=== PATIENT | female | born 1965 | race Caucasian/White ===

== ENCOUNTER 2016-12-08 09:44 | Emergency (ER) | payer OTHER ==
[~2016-12-08] VITALS: Ht 162.6 cm; Wt 85.0 kg
[~2016-12-08 09:44] MED LIST: LISI-515 PO; METR-1 PO; OXYC1TAB63 PO
[2016-12-08 09:46] VITALS: BP 141/91; PULSE 88; RESP 16; TEMP 97.8; O2SAT 96
[2016-12-08] MEDS ORDERED: ZOFR4TAB PO (10:04)
[2016-12-08] MEDS ORDERED: PANT20TA2 PO (10:04)
[2016-12-08] MEDS ORDERED: DEXA4TAB PO (10:04)
--- NOTE | 2016-12-08 10:38 | PD ---
HPI Chief Complaint: Pain: Acute or Chronic Time Seen by Provider: 10:02 Travel History International Travel<30 days: No Contact w/Intl Traveler<30days: No Traveled to known affect area: No History of Present Illness HPI This patient complains of pain in her left leg. Duration 2 days. Location of pain in his near the knee and proximal thigh. There is no injury. She denies fever. 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 She spoke with her oncologist who recommended she come here to rule out blood clot. She did have swelling of the leg yesterday but says the swelling seems improved. No history of blood clot. Symptoms severity is mild to moderate. No alleviating factors. PFSH Past Medical History Cancer: Yes (uterine) Cardiovascular Problems: Yes (SMALL HOLE IN HEART PER PATIENT) Chemotherapy: Yes Diabetes: No Endocrine: No Genitourinary: No Hepatitis: No Hiatal Hernia: No Immune Disorder: No Medical other: Yes (UMBILICAL HERNIA) Musculoskeletal: No Neurologic: No Psychiatric: No Reproductive: Yes (TUMOR UTERUS) Respiratory: No Thyroid Disease: No Tetanus Vaccination: < 5 Years ?: Not Past Surgical History Abdominal Surgery: Yes (APPY, ) AICD: No Body Medical Devices: NONE Gynecologic Surgery: Yes (CYST REMOVED FROM OVARY, TUBAL, ABLATION) Joint Replacement: No Pacemaker: No Other Surgery: Yes (hysterectomy 09/09/16) Social History Alcohol Use: Yes Tobacco Use: No Substance Use: No Allergies-Medications (Allergen,Severity, Reaction): Coded Allergies: Soma (Verified Allergy, Severe, HYPOTENSION, 10/10/16) Reported Meds & Prescriptions Reported Meds & Active Scripts Active Oxycodone-Acetaminophen 5-325 mg Tab 1 Tab PO Q4H PRN Reported Pantoprazole (Pantoprazole Sodium) 20 Mg Tab 20 Mg PO DAILY Dexamethasone 4 Mg Tab 4 Mg PO DIRECTED Zofran (Ondansetron HCl) 4 Mg Tab 4 Mg PO Q6HR PRN Flagyl (Metronidazole) 500 Mg Tab 500 Mg PO BID Lisinopril 20 Mg Tab 20 Mg PO HS Review of Systems General / Constitutional: No: Fever Eyes: No: Visual changes HENT: No: Headaches Cardiovascular: No: Chest Pain or Discomfort Respiratory: No: Shortness of Breath Gastrointestinal: No: Abdominal Pain Genitourinary: No: Dysuria Musculoskeletal: Positive: Myalgias, Pain Skin: No Rash Neurologic: No: Weakness Psychiatric: No: Depression Endocrine: No: Polydipsia Hematologic/Lymphatic: No: Easy Bruising Physical Exam Narrative GENERAL: Well-nourished, well-developed patient in no apparent distress. SKIN: Warm and dry. HEAD: Atraumatic. Normocephalic. EYES: Pupils equal and round. No scleral icterus. No injection or drainage. ENT: No nasal bleeding or discharge. Mucous membranes pink and moist. NECK: Trachea midline. No JVD. CARDIOVASCULAR: Regular rate and rhythm. No murmur appreciated. RESPIRATORY: No accessory muscle use. Clear to auscultation. Breath sounds equal bilaterally. GASTROINTESTINAL: Abdomen soft, non-tender, nondistended. Hepatic and splenic margins not palpable. MUSCULOSKELETAL: No obvious deformities. No clubbing. No cyanosis. No edema. No warmth or erythema of the leg. There is some tenderness of the proximal thigh musculature. NEUROLOGICAL: Awake and alert. No obvious cranial nerve deficits. Motor grossly within normal limits. Normal speech. PSYCHIATRIC: Appropriate mood and affect; insight and judgment normal. Data Data Last Documented VS Vital Signs Date Time Temp Pulse Resp B/P Pulse Ox O2 Delivery O2 Flow Rate FiO2 12/08/16 09:46 97.8 88 16 141/91 96 Room Air Orders Us Leg Venous Doppler (12/08/16 ) [facility] Medical Decision Making Medical Screen Exam Complete: Yes Emergency Medical Condition: Yes Medical Record Reviewed: Yes Differential Diagnosis DVT, quadriceps strain, Meneses cyst Narrative Course I have reviewed the patient's electronic medical record. I've ordered an ultrasound to rule out DVT of the left leg. While there are not much in the way of objective findings she is having unexplained left leg pain and has cancer getting chemotherapy so has significant risk for this. Ultrasound is negative. Supportive care discussed primary care follow-up recommended Diagnosis Primary Impression: Left leg pain Additional Instructions: The patient was advised to follow up with their physician and return if they worsen. Med/Other Pt SpecificInfo: Other Disposition: 01 DISCHARGE HOME Condition: Stable Vinnie Alcazar MD Dec 08, 2016 10:38
--- NOTE | 2016-12-08 11:20 | RADRPT ---
EXAM DATE/TIME: 12/08/2016 10:38 [facility] COMPARISON: No previous studies available for comparison. INDICATIONS : Left leg pain. MEDICAL HISTORY : Small hole in heart. Uterine cancer. SURGICAL HISTORY : Hysterectomy. Appendectomy. Tubal ligation. ENCOUNTER: Initial ACUITY: 4 - 6 days PAIN SCORE: 5/10 LOCATION: Left leg. TECHNIQUE: Venous ultrasound of the leg was performed from the inguinal ligament to the proximal calf. Real-claribel e, color Doppler and spectral tracing, compression and augmentation techniques were used. FINDINGS: There is normal compressibility of the deep venous system from the inguinal region to the proximal ca lf. No echogenic clot is seen in the lumen of the common femoral, femoral, popliteal, and posterior tibial veins. There is a normal response of the venous system to proximal and distal augmentation an d respiration. CONCLUSION: No evidence of DVT. Darrian Major MD on December 08, 2016 at 11:18 Board Certified Radiologist. This report was verified electronically.
== END 2016-12-08 12:33 | disposition home or self-care (01) ==
LOC: NEPE 09:44
DX: M79.605 Pain in left leg (principal); C55 Malignant neoplasm of uterus, part unspecified; Z86.79 Personal history of other diseases of the circulatory system
CPT/HCPCS: 93971

== ENCOUNTER 2017-12-21 10:15 | Emergency (ER) | payer BC ==
[~2017-12-21] VITALS: Ht 160 cm; Wt 94.0 kg
[~2017-12-21 10:15] MED LIST changes: +DEXA4TAB PO; +PANT20TA2 PO; +ZOFR4TAB PO
[2017-12-21 10:21] VITALS: BP 122/76; PULSE 98; RESP 16; TEMP 98.3; O2SAT 97
[2017-12-21] MEDS ORDERED: FURO40TA PO (10:35)
[2017-12-21] MEDS ORDERED: POTA10CA PO (10:35)
[2017-12-21] MEDS ORDERED: CALC1TAB87 PO (10:35)
[2017-12-21] MEDS ORDERED: FOLI400T PO (10:35)
[2017-12-21] MEDS ORDERED: VITA20004 PO (10:35)
[2017-12-21] MEDS ORDERED: VITA1000 PO (10:35)
[2017-12-21] MEDS ORDERED: PYRI100T PO (10:35)
[2017-12-21] MEDS ORDERED: DEXAMETHASONE SOD PHOS 4 MG/ML VIAL IM ONE (10:45)
[2017-12-21] MEDS ORDERED: KETOROLAC TROMETHAMINE 60 MG/2 ML (IM) VIAL IM ONE (10:45)
--- NOTE | 2017-12-21 10:49 | PD ---
HPI Chief Complaint: Musculoskeletal Complaint Time Seen by Provider: 10:35 Travel History International Travel<30 days: No Contact w/Intl Traveler<30days: No Traveled to known affect area: No History of Present Illness HPI 52-year-old female presents to the emergency department for evaluation of right leg pain. Patient states she has right leg pain in the upper thigh which radiates down to the knee. Patient states the pain is worse with ambulation, movement. Take that it is difficult to lift the leg due to pain. Patient states that she retains water due to being on chemotherapy in the past. She states she saw her primary care physician for this issue and he increased her Lasix, which has not helped her symptoms. She has history of uterine cancer, but is currently in remission. She denies any history of DVT. Patient states that she will get low back pain when she lays down. She does or history of sciatica, but states this feels different. No abdominal pain. No vomiting. No fevers or chills. No loss of bowel or bladder control. No saddle anesthesias. Patient states she had similar symptoms in the left leg in November 2016. Moderate severity. Current pain is 8/10. PFSH Past Medical History Cancer: Yes (uterine) Cardiovascular Problems: Yes (SMALL HOLE IN HEART PER PATIENT) Chemotherapy: Yes (LAST MARCH 2017) Diabetes: No Endocrine: No Genitourinary: No Hepatitis: No Hiatal Hernia: No Immune Disorder: No Musculoskeletal: No Neurologic: No Psychiatric: No Reproductive: Yes (TUMOR UTERUS) Respiratory: No Immunizations Current: No Thyroid Disease: No Influenza Vaccination: No ?: Not Tubal Ligation: Yes Past Surgical History Abdominal Surgery: Yes (LUKAS, ) AICD: No Appendectomy: Yes Body Medical Devices: NONE Gynecologic Surgery: Yes (CYST REMOVED FROM OVARY, TUBAL, ABLATION) Hysterectomy: Yes Joint Replacement: No Pacemaker: No Other Surgery: Yes (hysterectomy 09/09/16) Social History Alcohol Use: Yes (RARELY) Tobacco Use: No Substance Use: No Allergies-Medications (Allergen,Severity, Reaction): Coded Allergies: carisoprodol (Unverified Allergy, Severe, HYPOTENSION, 12/21/17) Reported Meds & Prescriptions Reported Meds & Active Scripts Active Reported Folic Acid 0.4 Mg Tab 400 Mcg PO DAILY Calcium 600 with Vitamin D (Calcium Carbonate-Cholecalciferol) 600-400 mg-Unit Tab 1 Tab PO DAILY Vitamin D-1000 (Cholecalciferol) 1,000 Unit Tab 1,000 Units PO DAILY Vitamin B-12 ER (Cyanocobalamin) 2,000 Mcg Tab 2,000 Mcg PO DAILY Vitamin B-6 (Pyridoxine HCl) 100 Mg Tab 100 Mg PO DAILY Potassium Chloride ER (Potassium Chloride) 10 Meq Cap 10 Meq PO DAILY Furosemide 40 Mg Tab 40 Mg PO DAILY Review of Systems Except as stated in HPI: all other systems reviewed are Neg Physical Exam Narrative GENERAL: Well-nourished, well-developed female patient, ambulatory. Afebrile. SKIN: Focused skin assessment warm/dry. HEAD: Normocephalic. Atraumatic. EYES: No scleral icterus. No injection or drainage. NECK: Supple, trachea midline. No JVD or lymphadenopathy. CARDIOVASCULAR: Regular rate and rhythm without murmurs, gallops, or rubs. RESPIRATORY: Breath sounds equal bilaterally. No accessory muscle use. Lungs sounds are clear to auscultation. GASTROINTESTINAL: Abdomen soft, non-tender, nondistended. MUSCULOSKELETAL: No cyanosis, or edema. Left lower extremity strength 5/5. Right lower extremity strength 4/5, due to pain. Patient is ambulatory. Mild tenderness over right anterior thigh. BACK: Nontender without obvious deformity. No CVA tenderness. Mild tenderness over bilateral lumbar paraspinal musculature. Data Data Last Documented VS Vital Signs Date Time Temp Pulse Resp B/P (MAP) Pulse Ox O2 Delivery O2 Flow Rate FiO2 12/21/17 11:51 18 12/21/17 10:21 98.3 98 122/76 (91) 97 Orders Orders Us Leg Venous Doppler (12/21/17 ) Hip, Uni(Ap&Lat) W Ap Pelvis (12/21/17 ) Dexamethasone Inj (Decadron Inj) (12/21/17 10:45) Ketorolac Inj (Toradol Inj) (12/21/17 10:45) MDM Medical Decision Making Medical Screen Exam Complete: Yes Emergency Medical Condition: Yes Medical Record Reviewed: Yes Interpretation(s) Last Impressions Hip and Pelvis X-Ray 12/21/17 0000 Signed Impressions: Service Date/Time: Thursday, December 21, 2017 10:56 - CONCLUSION: Normal valuation of the right hip. Degenerative changes within the facet joints of the lower lumbar spine. Pain may be referred.. Henny Yung MD US - CONCLUSION: Normal examination. No evidence of DVT Differential Diagnosis Sciatica versus muscle spasm versus muscle strain versus DVT Narrative Course 52-year-old female presents to the emergency department for evaluation of right leg pain that started one month ago. Pain is worse with ambulation, movement. Venous Doppler ultrasound of right lower extremity is ordered and pending. X- ray of the right hip with pelvis is ordered and pending. Patient is given dexamethasone 8 mg IM, Toradol 60 mg IM. US is negative for DVT. X-ray of the right hip with pelvis shows normal valuation of the right hip. Degenerative changes within the facet joints of the lower lumbar spine. Pain may be referred. Patient will be discharged with a prescription for Medrol Dosepak, diclofenac. She is encouraged to follow with her primary care physician. She is return here for any acute worsening of symptoms. The patient was discharged in stable condition with instructions, including return instructions and follow up instructions. Diagnosis Primary Impression: Sciatica Qualified Codes: M54.31 - Sciatica, right side Additional Impression: Muscle strain Referrals: Primary Care Physician call for appointment Patient Instructions: General Instructions, Muscle Strain (ED), Sciatica (ED) Additional Instructions: Take diclofenac as directed as needed with food for pain. Take Medrol Dosepak as directed. Start this tomorrow Heating pad on low for 20 minutes 4-5 times daily Follow-up with your primary care physician. Return to the emergency department for any acute worsening of symptoms. Med/Other Pt SpecificInfo: Prescription(s) given Scripts Diclofenac Potassium (Diclofenac Potassium) 50 Mg Tab 50 MG PO TID Y for PAIN SCALE 1 TO 10, #21 TAB 0 Refills Prov: Roxana Jeffries 12/21/17 Methylprednisolone Dosepak (Medrol Dosepak) 4 Mg Dspk 4 MG PO DIRECTED, #1 DSPK 0 Refills Per Pharmacist direction Prov: Roxana Jeffries 12/21/17 Disposition: 01 DISCHARGE HOME Condition: Stable Roxana Jeffries Dec 21, 2017 10:49
--- NOTE | 2017-12-21 11:11 | RADRPT ---
EXAM DATE/TIME: 12/21/2017 10:56 [facility] COMPARISON: No previous studies available for comparison. INDICATIONS : Right hip area pain, radiating down leg, for 1 month MEDICAL HISTORY : Ovarian cancer SURGICAL HISTORY : None. ENCOUNTER: Initial ACUITY: 1 month PAIN SCORE: 8/10 LOCATION: Right hip FINDINGS: Examination of the right hip was performed with AP Pelvis. The primary and secondary trabecular kraig jerrell of the femoral neck is intact. The hip joint is of normal width without significant sclerosis or bony hypertrophy. The acetabulum is grossly intact. There are degenerative changes identified in th e region of the facet joints at the level of L5/S1 bilaterally. CONCLUSION: Normal valuation of the right hip. Degenerative changes within the facet joints of the lower lumbar s pine. Pain may be referred.. Henny Yung MD on December 21, 2017 at 11:08 Board Certified Radiologist. This report was verified electronically.
[2017-12-21 11:51] VITALS: RESP 18
--- NOTE | 2017-12-21 12:07 | RADRPT ---
EXAM DATE/TIME: 12/21/2017 11:42 [facility] COMPARISON: No previous studies available for comparison. INDICATIONS : Right leg pain. MEDICAL HISTORY : Small hole in heart. Uterine cancer. SURGICAL HISTORY : Hysterectomy. Appendectomy. Tubal ligation. ENCOUNTER: Initial ACUITY: 1 week PAIN SCORE: 6/10 LOCATION: Right leg. TECHNIQUE: Venous ultrasound of the leg was performed from the inguinal ligament to the proximal calf. Real-claribel e, color Doppler and spectral tracing, compression and augmentation techniques were used. FINDINGS: There is normal compressibility of the deep venous system from the inguinal region to the proximal ca lf. No echogenic clot is seen in the lumen of the common femoral, femoral, popliteal, and posterior tibial veins. There is a normal response of the venous system to proximal and distal augmentation an d respiration. CONCLUSION: Normal examination. No evidence of DVT Bijan Pena MD on December 21, 2017 at 12:04 Board Certified Radiologist. This report was verified electronically.
[2017-12-21] MEDS ORDERED: DICL50TA PO (12:20)
[2017-12-21] MEDS ORDERED: MEDR4PAK PO (12:20)
== END 2017-12-21 12:27 | disposition home or self-care (01) ==
LOC: PHEFT 10:15
DX: M54.41 Lumbago with sciatica, right side (principal); S76.911A Strain of unspecified muscles, fascia and tendons at thigh level, right thigh, initial encounter; X58.XXXA Exposure to other specified factors, initial encounter; Z92.21 Personal history of antineoplastic chemotherapy; Z85.42 Personal history of malignant neoplasm of other parts of uterus; Z86.718 Personal history of other venous thrombosis and embolism
CPT/HCPCS: 73502; 93971; 96372; 99284; J1100; J1885

== ENCOUNTER 2018-01-20 18:37 | Inpatient (IN) | payer BC ==
[~2018-01-20] VITALS: Ht 162.6 cm; Wt 87.8 kg
[~2018-01-20 18:37] MED LIST changes: +CALC1TAB87 PO; -DEXA4TAB PO; +DICL50TA PO; +FOLI400T PO; +FURO40TA PO; -LISI-515 PO; +MEDR4PAK PO; -METR-1 PO; -OXYC1TAB63 PO; -PANT20TA2 PO; +POTA10CA PO; +PYRI100T PO; +VITA1000 PO; +VITA20004 PO; -ZOFR4TAB PO
[2018-01-20 19:15] VITALS: BP 146/82; TEMP 98.7; O2SAT 97
[2018-01-20 20:26] LABS: AUTOMATED NEUTROPHIL # 6.7 TH/MM3 (1.8-7.7); BASOPHIL % 0.3 % (0.0-2.0); EOSINOPHIL # 0.2 TH/MM3 (0-0.4); EOSINOPHIL % 2.4 % (0.0-4.0); HEMATOCRIT 41.5 % (35.0-46.0); HEMOGLOBIN 13.7 GM/DL (11.6-15.3); LYMPH % 22.7 % (9.0-44.0); LYMPHOCYTE # 2.2 TH/MM3 (1.0-4.8); MEAN CELL VOLUME 89.8 FL (80.0-100.0); MEAN CORPUSCULAR HEMOGLOBIN 29.6 PG (27.0-34.0); MEAN CORPUSCULAR HGB CONC 32.9 % (32.0-36.0); MEAN PLATELET VOLUME 8.8 FL (7.0-11.0); MONO % 4.8 % (0.0-8.0); MONOCYTE # 0.5 TH/MM3 (0-0.9); NEUT % 69.8 % (16.0-70.0); PLATELET COUNT 298 TH/MM3 (150-450); RED BLOOD COUNT 4.63 MIL/MM3 (4.00-5.30); RED CELL DISTRIBUTION WIDTH 13.4 % (11.6-17.2); WHITE BLOOD COUNT 9.5 TH/MM3 (4.0-11.0)
[2018-01-20 20:31] LABS: PROTHROMBIN TIME - PATIENT 9.7 SEC (9.8-11.6)
[2018-01-20 20:37] LABS: ALBUMIN 3.3 GM/DL (3.4-5.0); AST (GOT) 15 U/L (15-37); BICARBONATE 27.7 MEQ/L (21.0-32.0); BLOOD UREA NITROGEN 11 MG/DL (7-18); CALCIUM 8.7 MG/DL (8.5-10.1); CHLORIDE 106 MEQ/L (98-107); GLOMERULAR FILTRATION RATE 75 ML/MIN (>89); GLUCOSE,RANDOM 91 MG/DL (74-106); SODIUM (NA) 140 MEQ/L (136-145)
[2018-01-20 20:38] LABS: ALT (GPT) 22 U/L (10-53)
[2018-01-20 20:41] LABS: ALKALINE PHOSPHATASE 124 U/L (45-117); TOTAL BILIRUBIN ADULT 0.4 MG/DL (0.2-1.0); TOTAL PROTEIN 6.8 GM/DL (6.4-8.2)
[2018-01-20 21:26] VITALS: BP 143/83; PULSE 75; RESP 18; TEMP 98.5; O2SAT 95
--- NOTE | 2018-01-20 21:35 | PD ---
HPI Chief Complaint: Medical Clearance Time Seen by Provider: 21:32 Travel History International Travel<30 days: No Contact w/Intl Traveler<30days: No Traveled to known affect area: No History of Present Illness HPI Patient is here after she had an outpatient study done at [facility]. Referred by her primary care Dr. Chandrika Swartz. Her [facility] oncology is Dr. Saleem. Patient has a lower pelvic area pain that she has had indolently going on for at least about 4 months has had several different x-rays all negative and so finally today she had CT abdomen and pelvis with contrast States allergy to soma Past medical history significant for appendectomy, uterine tumor status post cyst removed from the ovary status post uterine ablation status post hysterectomy status post umbilical hernia status post apparent chemo back in last March 2017 [facility] Past Medical History Cancer: Yes (uterine) Cardiovascular Problems: Yes (SMALL HOLE IN HEART PER PATIENT) Chemotherapy: Yes (March 2017) Diabetes: No Endocrine: No Genitourinary: No Hepatitis: No Hiatal Hernia: No Immune Disorder: No Medical other: Yes (UMBILICAL HERNIA) Musculoskeletal: No Neurologic: No Psychiatric: No Reproductive: Yes (TUMOR UTERUS) Respiratory: No Immunizations Current: No Thyroid Disease: No Influenza Vaccination: No ?: Not Tubal Ligation: Yes Past Surgical History Abdominal Surgery: Yes (APPY, ) AICD: No Appendectomy: Yes Body Medical Devices: NONE Gynecologic Surgery: Yes (CYST REMOVED FROM OVARY, TUBAL, ABLATION) Hysterectomy: Yes Joint Replacement: No Pacemaker: No Other Surgery: Yes (hysterectomy 09/09/16) Social History Alcohol Use: Yes (RARELY) Tobacco Use: No Substance Use: No Allergies-Medications (Allergen,Severity, Reaction): Coded Allergies: carisoprodol (Unverified Allergy, Severe, HYPOTENSION, 12/21/17) Reported Meds & Prescriptions Reported Meds & Active Scripts Active Diclofenac Potassium 50 Mg Tab 50 Mg PO TID PRN Reported Folic Acid 0.4 Mg Tab 400 Mcg PO DAILY Calcium 600 with Vitamin D (Calcium Carbonate-Cholecalciferol) 600-400 mg-Unit Tab 1 Tab PO DAILY Vitamin D-1000 (Cholecalciferol) 1,000 Unit Tab 1,000 Units PO DAILY Vitamin B-12 ER (Cyanocobalamin) 2,000 Mcg Tab 2,000 Mcg PO DAILY Vitamin B-6 (Pyridoxine HCl) 100 Mg Tab 100 Mg PO DAILY Potassium Chloride ER (Potassium Chloride) 10 Meq Cap 10 Meq PO DAILY Furosemide 40 Mg Tab 40 Mg PO DAILY Physical Exam Narrative GENERAL: SKIN: Warm and dry. HEAD: Atraumatic. Normocephalic. EYES: Pupils equal and round. No scleral icterus. No injection or drainage. ENT: No nasal bleeding or discharge. Mucous membranes pink and moist. NECK: Trachea midline. No JVD. CARDIOVASCULAR: Regular rate and rhythm. Good strong pulses of bilateral dorsalis pedis RESPIRATORY: No accessory muscle use. Clear to auscultation. Breath sounds equal bilaterally. GASTROINTESTINAL: Abdomen soft, non-tender, nondistended. MUSCULOSKELETAL: Extremities without clubbing, cyanosis, or edema. No obvious deformities. NEUROLOGICAL: Awake and alert. No obvious cranial nerve deficits. Motor grossly within normal limits. Five out of 5 muscle strength in the arms and legs. Normal speech. PSYCHIATRIC: Appropriate mood and affect; insight and judgment normal. Data Data Last Documented VS Vital Signs Date Time Temp Pulse Resp B/P (MAP) Pulse Ox O2 Delivery O2 Flow Rate FiO2 01/20/18 21:26 98.5 75 18 143/83 (103) 95 Room Air Orders Orders Complete Blood Count With Diff (01/20/18 19:17) Comprehensive Metabolic Panel (01/20/18 19:17) Prothrombin Time / Inr (Pt) (01/20/18 19:17) Act Partial Throm Time (Ptt) (01/20/18 19:17) Cbc No Diff, Includes Plts (01/23/18 06:00) Act Partial Throm Time (Ptt) (01/21/18 05:04) Occult Blood (Hemoccult) Stool (01/20/18 22:04) Heparin-D5w 25,000 U/250 Ml (Heparin-D5w (01/20/18 22:45) Admit Order (Ed Use Only) (01/20/18 23:05) Admit To Inpatient (01/20/18 ) Vital Signs (Adult) Q4H (01/20/18 23:05) Activity Bed Rest (01/20/18 23:05) Motor Transport Inspector / Telemetry .CONTINUOUS (01/20/18 23:05) Diet Heart Healthy (01/21/18 Breakfast) Sodium Chloride 0.9% Flush (Ns Flush) (01/20/18 23:15) Sodium Chloride 0.9% Flush (Ns Flush) (01/21/18 09:00) Basic Metabolic Panel (Bmp) (01/21/18 06:00) Complete Blood Count With Diff (01/21/18 06:00) Case Management Consult (01/20/18 23:05) Naloxone Inj (Narcan Inj) (01/20/18 23:15) Inpatient Certification (01/20/18 ) Morphine Inj (Morphine Inj) (01/20/18 23:15) Labs Laboratory Tests Test 01/20/18 19:53 White Blood Count 9.5 TH/MM3 Red Blood Count 4.63 MIL/MM3 Hemoglobin 13.7 GM/DL Hematocrit 41.5 % Mean Corpuscular Volume 89.8 FL Mean Corpuscular Hemoglobin 29.6 PG Mean Corpuscular Hemoglobin Concent 32.9 % Red Cell Distribution Width 13.4 % Platelet Count 298 TH/MM3 Mean Platelet Volume 8.8 FL Neutrophils (%) (Auto) 69.8 % Lymphocytes (%) (Auto) 22.7 % Monocytes (%) (Auto) 4.8 % Eosinophils (%) (Auto) 2.4 % Basophils (%) (Auto) 0.3 % Neutrophils # (Auto) 6.7 TH/MM3 Lymphocytes # (Auto) 2.2 TH/MM3 Monocytes # (Auto) 0.5 TH/MM3 Eosinophils # (Auto) 0.2 TH/MM3 Basophils # (Auto) 0.0 TH/MM3 CBC Comment DIFF FINAL Differential Comment Prothrombin Time 9.7 SEC Prothromb Time International Ratio 1.0 RATIO Activated Partial Thromboplast Time 26.1 SEC Blood Urea Nitrogen 11 MG/DL Creatinine 0.80 MG/DL Random Glucose 91 MG/DL Total Protein 6.8 GM/DL Albumin 3.3 GM/DL Calcium Level 8.7 MG/DL Alkaline Phosphatase 124 U/L Aspartate Amino Transf (AST/SGOT) 15 U/L Alanine Aminotransferase (ALT/SGPT) 22 U/L Total Bilirubin 0.4 MG/DL Sodium Level 140 MEQ/L Potassium Level 4.7 MEQ/L Chloride Level 106 MEQ/L Carbon Dioxide Level 27.7 MEQ/L Anion Gap 6 MEQ/L Estimat Glomerular Filtration Rate 75 ML/MIN MDM Medical Decision Making Medical Screen Exam Complete: Yes Emergency Medical Condition: Yes Medical Record Reviewed: Yes Differential Diagnosis DVT versus pelvic mass versus uterine CA versus bony lesions Narrative Course CBC shows no leukocytosis, no anemia, no abnormal platelet count and no left shift. Coagulation profile is within normal limits Chemistry is within normal limits, normal electrolytes, normal liver/normal kidney/functions CT abdomen pelvis with contrast showed: Compared with her previous PET scan on May 2017 this shows a new bulky soft tissue mass in the right pelvis extending into the right common iliac region. Due to the patient's previous history of leiomyosarcoma this could represent a local recurrence in the right pelvis. New area of bony destruction involving the inferior right ilium and superior acetabular region most likely secondary to extension. Next also thrombus in the right common iliac vein and extending into the IVC. Diagnosis Primary Impression: DVT (deep venous thrombosis) Qualified Codes: I82.421 - Acute embolism and thrombosis of right iliac vein Additional Impression: Uterine cancer Qualified Codes: C55 - Malignant neoplasm of uterus, part unspecified Admitting Information Admitting Physician Requests: Admit Scripts Hydrocodone/Acetaminophen (Hydrocodone-Acetamin 5-325 mg) 5 Mg-325 Mg Tablet 1 TAB PO Q4H Y for PAIN GREATER THAN 5, #20 Prov: Caitlin Reid MD 01/24/18 Enoxaparin Inj (Enoxaparin Inj) 150 Mg/Ml Syr 150 MG SQ DAILY for Blood Clot Prevention, #7 SYRINGE 0 Refills Prov: Caitlin Reid MD 01/24/18 Jasvir Thorpe MD Jan 20, 2018 21:35
[2018-01-20] MEDS ORDERED: HEPARIN-D5W 25,000 U/250 ML 250 ML IV PRN (22:15)
[2018-01-20] MEDS ORDERED: NALOXONE HCL 0.4 MG/ML AMP IV PUSH PRN (23:15)
[2018-01-20] MEDS ORDERED: SODIUM CHLORIDE 0.9% FLUSH 10 ML FLUSH IV FLUSH PRN (23:15)
[2018-01-20] MEDS: HEPARIN 25,000 UNITS-D5W 250 ML - PREMIX IV PRN (23:25)
[2018-01-21] VITALS (7 sets, daily range): BP systolic 118–140; BP diastolic 65–79; PULSE 58–76; RESP 16–18; TEMP 97.1–98.6; O2SAT 94–98
--- NOTE | 2018-01-21 05:45 | HHI.HP ---
HPI Service [facility] Primary Care Physician Chandrika Swartz MD Admission Diagnosis RIGHT ILIAC DVT EXTENDING TO IVC, POSS LEIMYOSARCOMA RECURRENCE Diagnoses: Travel History International Travel<30 Days: No Contact w/Intl Traveler <30 Da: No Traveled to Known Affected Are: No History of Present Illness History from patient, ER physician, and review of medical records. Patient reported that for the past 2 months, she has been having this right upper thigh pain. She rated pointed mainly to the right below the right inguinal area. She reports that she has had multiple imaging studies done as an outpatient without any results. She then had a CT abdomen and pelvis done yesterday at [facility] ordered by her doctor. She was called by her doctor to go to the emergency room today Apart from the above pain, patient denies any other symptoms. Denies any fever/nausea/vomiting/diarrhea. Denies any abdominal pains or pelvic pain. She states that her pain is in fact in this right upper thigh . Review of Systems Except as stated in HPI: all other systems reviewed are Neg Past Family Social History Past Medical History PFO - no surgical intervention yet uterine cancer - jul 2016- complete hysterectomy; oct to January 2017 chemo 5 rounds - at that time, it was at omentum, uterus, ovaries, tubes no lymph node resection Past Surgical History hysterectomy complete appendectomy ovariectomy- right prior to hysterectomy Allergies: Coded Allergies: carisoprodol (Unverified Allergy, Severe, HYPOTENSION, 12/21/17) Family History dad- lung cancer at age 60 mom- osteoporosis heart dx lung dx sister - leukemia at 52 dad, mom - dm brother- brain aneurysm grandmother- breast and pancreatic ca- mom side Paternal grandfather. [place]. Social History quit smoking 20 to 30yrs ago social drinker no drugs Physical Exam Vital Signs Vital Signs Date Time Temp Pulse Resp B/P (MAP) Pulse Ox O2 Delivery O2 Flow Rate FiO2 01/21/18 01:53 74 18 125/76 (92) 94 Room Air 01/20/18 21:26 98.5 75 18 143/83 (103) 95 Room Air 01/20/18 19:15 98.7 146/82 (103 97 Physical Exam GENERAL: This is a well-nourished, well-developed patient, in no apparent distress. SKIN: No rashes, ecchymoses or lesions. Cool and dry. HEAD: Atraumatic. Normocephalic. No temporal or scalp tenderness. EYES: No scleral icterus. No injection or drainage. ENT: Nose without bleeding, purulent drainage or septal hematoma. Airway patent. NECK: Trachea midline. No JVD or lymphadenopathy. Supple, nontender, no meningeal signs. CARDIOVASCULAR: Regular rate and rhythm without murmurs, gallops, or rubs. RESPIRATORY: Clear to auscultation. Breath sounds equal bilaterally. No wheezes , rales, or rhonchi. GASTROINTESTINAL: Abdomen soft, non-tender, nondistended. No hepato-splenomegaly , or palpable masses. No guarding. MUSCULOSKELETAL: Extremities without clubbing, cyanosis, or edema. No calf tenderness. Pain and right upper thigh area. NEUROLOGICAL: Awake and alert. Motor and sensory grossly within normal limits. Normal speech. Laboratory Laboratory Tests Test 01/20/18 19:53 White Blood Count 9.5 Red Blood Count 4.63 Hemoglobin 13.7 Hematocrit 41.5 Mean Corpuscular Volume 89.8 Mean Corpuscular Hemoglobin 29.6 Mean Corpuscular Hemoglobin Concent 32.9 Red Cell Distribution Width 13.4 Platelet Count 298 Mean Platelet Volume 8.8 Neutrophils (%) (Auto) 69.8 Lymphocytes (%) (Auto) 22.7 Monocytes (%) (Auto) 4.8 Eosinophils (%) (Auto) 2.4 Basophils (%) (Auto) 0.3 Neutrophils # (Auto) 6.7 Lymphocytes # (Auto) 2.2 Monocytes # (Auto) 0.5 Eosinophils # (Auto) 0.2 Basophils # (Auto) 0.0 CBC Comment DIFF FINAL Differential Comment Prothrombin Time 9.7 Prothromb Time International Ratio 1.0 Activated Partial Thromboplast Time 26.1 Blood Urea Nitrogen 11 Creatinine 0.80 Random Glucose 91 Total Protein 6.8 Albumin 3.3 Calcium Level 8.7 Alkaline Phosphatase 124 Aspartate Amino Transf (AST/SGOT) 15 Alanine Aminotransferase (ALT/SGPT) 22 Total Bilirubin 0.4 Sodium Level 140 Potassium Level 4.7 Chloride Level 106 Carbon Dioxide Level 27.7 Anion Gap 6 Estimat Glomerular Filtration Rate 75 Result Diagram: 01/20/18195201/20/181952 Imaging CT abdomen and pelvis done at outpatient radiology [facility] on January 20, 2018. New SOFT tissue mass in the right pelvis and extending into the right common iliac region. In this location, this could represent tendinopathy. New area of bony destruction involving the inferior right ilium and superior acetabular region. This is thought almost certainly be involved with tumor either from direct extension or metastatic spread. It is the only suspicious proclamation making direct extension more likely. This lesion is at risk for pathological fracture given its location. Thrombus in the right common iliac vein and extending into the IVC. Hepatic steatosis. 1.2 cm nonspecific right renal mass. This may represent a complex cyst or solid mass. Given its size and the other issues the patient has, a follow-up CT or MRI examination in 6 months would be recommended for follow-up. Caprini VTE Risk Assessment Caprini VTE Risk Assessment: Mod/High Risk (score >= 2) Caprini Risk Assessment Model Point Value = 1 Point Value = 2 Point Value = 3 Point Value = 5 Age 41-60 Minor surgery BMI > 25 kg/m2 Swollen legs Varicose veins or History of unexplained or recurrent spontaneous Oral contraceptives or hormone replacement Sepsis (< 1 month) Serious lung disease, including pneumonia (< 1 month) Abnormal pulmonary function Acute myocardial infarction Congestive heart failure (< 1 month) History of inflammatory bowel disease Medical patient at bed rest Age 61-74 Arthroscopic surgery Major open surgery (> 45 min) Laparoscopic surgery (> 45 min) Malignancy Confined to bed (> 72 hours) Immobilizing plaster cast Central venous access Age >= 75 History of VTE Family history of VTE Factor V Leiden Prothrombin [id number] Lupus anticoagulant Anticardiolipin antibodies Elevated serum homocysteine Heparin-induced thrombocytopenia Other congenital or acquired thrombophilia Stroke (< 1 month) Elective arthroplasty Hip, pelvis, or leg fracture Acute spinal cord injury (< 1 month) Prophylaxis Regimen Total Risk Factor Score Risk Level Prophylaxis Regimen 0-1 Low Early ambulation 2 Moderate Order ONE of the following: *Sequential Compression Device (SCD) *Heparin 5000 units SQ BID 3-4 Higher Order ONE of the following medications: *Heparin 5000 units SQ TID *Enoxaparin/Lovenox 40 mg SQ daily (WT < 150 kg, CrCl > 30 mL/min) *Enoxaparin/Lovenox 30 mg SQ daily (WT < 150 kg, CrCl > 10-29 mL/min) *Enoxaparin/Lovenox 30 mg SQ BID (WT < 150 kg, CrCl > 30 mL/min) AND/OR *Sequential Compression Device (SCD) 5 or more Highest Order ONE of the following medications: *Heparin 5000 units SQ TID (Preferred with Epidurals) *Enoxaparin/Lovenox 40 mg SQ daily (WT < 150 kg, CrCl > 30 mL/min) *Enoxaparin/Lovenox 30 mg SQ daily (WT < 150 kg, CrCl > 10-29 mL/min) *Enoxaparin/Lovenox 30 mg SQ BID (WT < 150 kg, CrCl > 30 mL/min) AND *Sequential Compression Device (SCD) Assessment and Plan Assessment and Plan Impression: Right common iliac vein DVT extending into the IVC. History of PFO without repair History of uterine cancer with spread to omentum. Status post hysterectomy and chemotherapy. Last dose March 2017. New SOFT tissue mass in the right pelvis and extending into the right common iliac region. In this location, this could represent adenopathy. New area of bony destruction involving the inferior right ilium and superior acetabular region. This is thought almost certainly be involved with tumor either from direct extension or metastatic spread. It is the only suspicious bone lesions and making direct extension more likely. This lesion is at risk for pathological fracture given its location. Plan: Heparin drip. Echocardiogram in a.m. to evaluate for PFO. We'll consult hematology for advice regarding anticoagulation since patient has extensive blood clot, ongoing cancer, and history of PFO. Question whether patient would be a candidate for Lovenox therapeutic dose with IVC filter placement. Regarding her new findings of pelvic mass and bony lesions, we will consider follow-up with her MYSQL DATABASE DEVELOPER oncologist. Initial consult was placed to Dr. Saleem. However his answering machine states all consults requires doctor to doctor conversation with him prior to putting it in by the consult Rob. If it is believed that patient needs to be seen by Dr. Saleem in the hospital, please call him and discuss the case with him. Otherwise, patient can see Dr. Saleem as an outpatient this week to follow-up on her newly found cancer recurrence. This was explained to patient. DVT prophylaxis on heparin drip. Discussed Condition With Patient, ER physician, patient's nurse Physician Certification 2 Midnight Certification Type: Admission for Inpatient Services Order for Inpatient Services The services are ordered in accordance with Medicare regulations or non- Medicare payer requirements, as applicable. In the case of services not specified as inpatient-only, they are appropriately provided as inpatient services in accordance with the 2-midnight benchmark. Estimated LOS (days): 2 days is the estimated time the patient will need to remain in the hospital, assuming treatment plan goals are met and no additional complications. Post-Hospital Plan: Home Marie Bryant MD Jan 21, 2018 05:45
[2018-01-21] MEDS: MORPHINE SULFATE 2 MG/ML INJ IV PUSH PRN ×2 (06:08→19:03)
[2018-01-21 07:29] LABS: AUTOMATED NEUTROPHIL # 3.9 TH/MM3 (1.8-7.7); BASOPHIL % 0.3 % (0.0-2.0); EOSINOPHIL # 0.2 TH/MM3 (0-0.4); EOSINOPHIL % 3.2 % (0.0-4.0); HEMATOCRIT 37.8 % (35.0-46.0); HEMOGLOBIN 12.7 GM/DL (11.6-15.3); LYMPH % 35.9 % (9.0-44.0); LYMPHOCYTE # 2.6 TH/MM3 (1.0-4.8); MEAN CELL VOLUME 89.8 FL (80.0-100.0); MEAN CORPUSCULAR HEMOGLOBIN 30.2 PG (27.0-34.0); MEAN CORPUSCULAR HGB CONC 33.7 % (32.0-36.0); MEAN PLATELET VOLUME 8.7 FL (7.0-11.0); MONO % 5.7 % (0.0-8.0); MONOCYTE # 0.4 TH/MM3 (0-0.9); NEUT % 54.9 % (16.0-70.0); PLATELET COUNT 258 TH/MM3 (150-450); RED BLOOD COUNT 4.22 MIL/MM3 (4.00-5.30); RED CELL DISTRIBUTION WIDTH 13.2 % (11.6-17.2); WHITE BLOOD COUNT 7.2 TH/MM3 (4.0-11.0)
--- NOTE | 2018-01-21 07:49 | HHI.PR ---
Subjective Remarks in no acute distress. pain is fairly controlled. no other complaints. Objective Vitals Vital Signs Date Time Temp Pulse Resp B/P (MAP) Pulse Ox O2 Delivery O2 Flow Rate FiO2 01/21/18 06:11 65 16 140/79 (99) 96 Room Air 01/21/18 01:53 74 18 125/76 (92) 94 Room Air 01/20/18 21:26 98.5 75 18 143/83 (103) 95 Room Air 01/20/18 19:15 98.7 146/82 (103) 97 Result Diagram: 01/21/1861901/20/181952 Objective Remarks GENERAL: This is a well-nourished, well-developed patient, in no apparent distress. CARDIOVASCULAR: Regular rate and regular rhythm without murmurs, gallops, or rubs. RESPIRATORY: Clear to auscultation. Breath sounds equal bilaterally. No wheezes , rales, or rhonchi. GASTROINTESTINAL: Abdomen soft, non-tender, nondistended. Normal, active bowel sounds MUSCULOSKELETAL: Extremities without clubbing, cyanosis, or edema. NEURO: Alert & Oriented x4 to person, place, time, situation. Moves all ext x4 Medications and IVs Inpatient Medications Heparin Sodium/ Dextrose 250 ml @ 16 mls/hr TITRATE PRN IV Coagulation Management Last administered on 01/20/18at 23:25; Start 01/20/18 at 22:45 Morphine Sulfate (Morphine Inj) 2 mg Q3H PRN IV PUSH pain >5 Last administered on 01/21/18at 06:08; Start 01/20/18 at 23:15 Naloxone HCl (Narcan Inj) 0.4 mg UNSCH PRN IV PUSH SEE LABEL COMMENTS; Start at 23:15 Sodium Chloride (NS Flush) 2 ml BID IV FLUSH ; Start 01/21/18 at 09:00 A/P Assessment and Plan A/P Right common iliac vein DVT extending into the IVC. continue with Heparin drip- Hematology consulted. right hip pain with history of uterine cancer CT of the abdomen and pelvis new SOFT tissue mass in the right pelvis and extending into the right common iliac region. In this location, this could represent adenopathy. New area of bony destruction involving the inferior right ilium and superior acetabular region. This is thought almost certainly be involved with tumor either from direct extension or metastatic spread. It is the only suspicious bone lesions and making direct extension more likely. This lesion is at risk for pathological fracture given its location. continue with pain control- consult . right renal mass- f/u as outpatient. Jeffrey Johns MD Jan 21, 2018 07:49
[2018-01-21 07:55] LABS: BICARBONATE 26.8 MEQ/L (21.0-32.0); CALCIUM 8.6 MG/DL (8.5-10.1); CREATININE 0.7 MG/DL (0.50-1.00)
[2018-01-21] MEDS ORDERED: ACETAMINOPHEN/HYDROcodone 325 MG/5 MG TAB PO PRN (08:00)
[2018-01-21] MEDS: CHOLECALCIFEROL (VIT D3) 1000 UNIT TAB PO SCH (09:08)
[2018-01-21] MEDS: CYANOCOBALAMIN 1,000 MCG TAB PO SCH (09:08)
[2018-01-21] MEDS: CALCIUM/VITAMIN D 250 MG/125 U TAB PO SCH (09:08)
[2018-01-21] MEDS: SODIUM CHLORIDE 0.9% FLUSH 10 ML FLUSH IV FLUSH SCH ×2 (09:09→21:07)
[2018-01-21] MEDS: PYRIDOXINE HCL 50 MG TAB PO SCH (09:09)
[2018-01-21] MEDS: FOLIC ACID 1 MG TAB PO SCH (09:09)
[2018-01-21] MEDS: ACETAMINOPHEN/HYDROcodone 325 MG/5 MG TAB PO PRN ×2 (09:09→21:07)
--- NOTE | 2018-01-21 12:37 | PD.CONS ---
History of Present Illness Service MANAGER TELEMETRY/ONC Consult Requested By Dr. Johns Reason for Consult recurrent cancer new pelvic mass Primary Care Physician Chandrika Swartz MD Diagnoses: (1) DVT (deep venous thrombosis) (2) Uterine cancer History of Present Illness This is a 52 year old female know to urogynecology physician/onc clinic for diagnosis of stage IV leiomyosarcoma. She completed treatment, IV chemotherapy Gemzar and Taxotere, in January 2017. She has been without evidence of disease since, until the past couple of months she complaints of upper right thigh swelling and pain to the inner aspect of upper thigh/groin. She contributed this to the fluid retention for which PT helped in the past. She reported this to her PCP who ordered CT scan that shown DVT to right iliac along with bulky soft tissue mass in right pelvis extending to right common iliac, new area of bony destruction to the inferior right ilium and superior acetabular region. The concern is that this is extension of tumor and puts her at risk for pathological fracture. Presiding Steward/Onc was consulted for the above findings. She is seen in ER. Mrs. Pitts states her pain is controlled at this time but she was having a lot of pain to upper right thigh/groin area. She states the swelling to that area had gotten worse and she was seen in ER a couple weeks ago where DVT was ruled out. I explained CT results and that hem/onc has been consulted for management of DVT. I explained that our concern is that this is recurrent leiomyosarcoma as this disease is aggressive and reoccur. I explained that usually when we have the first reoccurrence we get some type of tissue confirmation. In her case we can see if IR can do a CT guided biopsy of the area to be sent to pathology. She wants to discuss this with her as she understands that sometimes patient elect to move forward without tissue confirmation of recurrent disease. She understands that there would be the discussion of IV chemotherapy, I am uncertain if radiation would be a consideration in her case but if it is then we may be able to get one of the rad onc doctors to see her during her hospital stay. Mrs. Pitts was concerned that with recurrent disease she would have to be treated elsewhere. I explained that if this was a different type of cancer then possible she would need to be treated with hem/onc but given the nature of her type of cancer our suspicions is high that this is recurrent leiomyosarcoma so she can stay under care of Dr. Saleem. We would also support her if she wanted a second opinion, she declined and was very thankful for the care she is getting and has gotten at [facility]. Review of Systems Except as stated in HPI: all other systems reviewed are Neg as stated in HPI Past Family Social History Allergies: Coded Allergies: carisoprodol (Unverified Allergy, Severe, HYPOTENSION, 12/21/17) Past Medical History leiomyosarcoma stage IV diagnosed in 08/2016 migraines congenital heart defect Past Surgical History Ex lap hyst with BSO, omentectomy and staging 08/2016 uterine ablation appendectomy cholecystectomy right ovarian cyst removal tubal ligation Reported Medications per EMR Active Ordered Medications Current Medications Heparin Sodium/ Dextrose 250 ml @ 0 mls/hr TITRATE PRN IV Coagulation Management; Start 01/20/18 at 22:15; Status UNV Heparin Sodium/ Dextrose 250 ml @ 16 mls/hr TITRATE PRN IV Coagulation Management Last administered on 01/20/18at 23:25; Start 01/20/18 at 22:45 Sodium Chloride (NS Flush) 2 ml UNSCH PRN IV FLUSH FLUSH AFTER USING IV ACCESS ; Start 01/20/18 at 23:15 Sodium Chloride (NS Flush) 2 ml BID IV FLUSH Last administered on 01/21/18at 09: 09; Start 01/21/18 at 09:00 Naloxone HCl (Narcan Inj) 0.4 mg UNSCH PRN IV PUSH SEE LABEL COMMENTS; Start at 23:15 Morphine Sulfate (Morphine Inj) 2 mg Q3H PRN IV PUSH BREAKTHROUGH PAIN Last administered on 01/21/18at 06:08; Start 01/20/18 at 23:15 Cholecalciferol (Vitamin D3) 1,000 units DAILY PO Last administered on at 09:08; Start 01/21/18 at 09:00 Cyanocobalamin (Vitamin B12) 2,000 mcg DAILY PO Last administered on 01/21/18at 09:08; Start 01/21/18 at 09:00 Folic Acid (Folate) 1 mg DAILY PO Last administered on 01/21/18at 09:09; Start 01/21/18 at 09:00 Pyridoxine HCl (Vitamin B6) 100 mg DAILY PO Last administered on 01/21/18at 09: 09; Start 01/21/18 at 09:00 Acetaminophen/ Hydrocodone Bitart (Cut Off 5-325 Mg) 1 tab Q4H PRN PO PAIN 3-6; Start 01/21/18 at 08:00 Acetaminophen/ Hydrocodone Bitart (Cut Off 5-325 Mg) 2 tab Q4H PRN PO PAIN 7-10 Last administered on 01/21/18at 09:09; Start 01/21/18 at 08:00 Calcium/Vitamin D (Oscal-D 250-125) 2 mg DAILY PO Last administered on at 09:08; Start 01/21/18 at 09:00 Social History lives with social ETOH quit smoking > 20 years ago Physical Exam Vital Signs Vital Signs Date Time Temp Pulse Resp B/P (MAP) Pulse Ox O2 Delivery O2 Flow Rate FiO2 01/21/18 08:00 98.3 67 17 122/65 (84) 96 Room Air 01/21/18 06:11 65 16 140/79 (99) 96 Room Air 01/21/18 01:53 74 18 125/76 (92) 94 Room Air 01/20/18 21:26 98.5 75 18 143/83 (103) 95 Room Air 01/20/18 19:15 98.7 146/82 (103) 97 Physical Exam GENERAL: This is a well-nourished, well-developed patient, in no apparent distress. SKIN: No rashes, ecchymoses or lesions. Cool and dry. HEAD: Atraumatic. Normocephalic. No temporal or scalp tenderness. EYES: Pupils equal round and reactive. Extraocular motions intact. No scleral icterus. No injection or drainage. NECK: Trachea midline. CARDIOVASCULAR: Regular rate and rhythm without murmurs, gallops, or rubs. RESPIRATORY: Clear to auscultation. Breath sounds equal bilaterally. No wheezes , rales, or rhonchi. GASTROINTESTINAL: Abdomen soft, non-tender, nondistended. No hepato-splenomegaly , or palpable masses. No guarding. MUSCULOSKELETAL: swelling to right thigh, neg homans bilat NEUROLOGICAL: Awake and alert. Normal speech. Laboratory Laboratory Tests Test 01/20/18 19:53 01/21/18 06:05 01/21/18 06:20 White Blood Count 9.5 7.2 Red Blood Count 4.63 4.22 Hemoglobin 13.7 12.7 Hematocrit 41.5 37.8 Mean Corpuscular Volume 89.8 89.8 Mean Corpuscular Hemoglobin 29.6 30.2 Mean Corpuscular Hemoglobin Concent 32.9 33.7 Red Cell Distribution Width 13.4 13.2 Platelet Count 298 258 Mean Platelet Volume 8.8 8.7 Neutrophils (%) (Auto) 69.8 54.9 Lymphocytes (%) (Auto) 22.7 35.9 Monocytes (%) (Auto) 4.8 5.7 Eosinophils (%) (Auto) 2.4 3.2 Basophils (%) (Auto) 0.3 0.3 Neutrophils # (Auto) 6.7 3.9 Lymphocytes # (Auto) 2.2 2.6 Monocytes # (Auto) 0.5 0.4 Eosinophils # (Auto) 0.2 0.2 Basophils # (Auto) 0.0 0.0 CBC Comment DIFF FINAL DIFF FINAL Differential Comment Prothrombin Time 9.7 Prothromb Time International Ratio 1.0 Activated Partial Thromboplast Time 26.1 49.7 Blood Urea Nitrogen 11 15 Creatinine 0.80 0.70 Random Glucose 91 95 Total Protein 6.8 Albumin 3.3 Calcium Level 8.7 8.6 Alkaline Phosphatase 124 Aspartate Amino Transf (AST/SGOT) 15 Alanine Aminotransferase (ALT/SGPT) 22 Total Bilirubin 0.4 Sodium Level 140 144 Potassium Level 4.7 3.8 Chloride Level 106 109 Carbon Dioxide Level 27.7 26.8 Anion Gap 6 8 Estimat Glomerular Filtration Rate 75 88 Result Diagram: 01/21/1861901/21/18619 Assessment and Plan Problem List: (1) Uterine cancer ICD Codes: C55 - Malignant neoplasm of uterus, part unspecified Status: Acute Plan: Dr. Saleem to discuss treatment options with patient, she is in favor of doing whatever she needs to Mrs. Pitts will talk with her about IR doing bx of right bulky tissue, she is considering moving forward with treatment without bx. supportive care pain controlled (2) DVT (deep venous thrombosis) ICD Codes: I82.409 - Acute embolism and thrombosis of unspecified deep veins of unspecified lower extremity Plan: Hematology has been consulted for evaluation and management of DVT +/- IVC filter with anticoagulation Discussed Condition With This consult will be discussed with Dr. Saleem in detail and any further orders will follow. Problem Qualifiers (1) DVT (deep venous thrombosis): Qualified Codes: I82.421 - Acute embolism and thrombosis of right iliac vein (2) Uterine cancer: Qualified Codes: C55 - Malignant neoplasm of uterus, part unspecified Eyad Aguila Jan 21, 2018 12:37
[2018-01-21] MEDS: HEPARIN 25,000 UNITS-D5W 250 ML - PREMIX IV PRN (16:39)
--- NOTE | 2018-01-21 18:09 | ECHRPT ---
Indication: PFO CONCLUSIONS Normal left ventricular size. Mild concentric left ventricular hypertrophy. The left ventricular systolic function is hyperdynamic with an estimated ejection fraction in the ra nge of 65- 70%. The left atrial size is mildly dilated. Trace mitral valve regurgitation. There is trace tricuspid valve regurgitation. BP: 140 / 79 HR: 65 Rhythm: Sinus MEASUREMENTS (Male / Female) Normal Values Technical Quality:Fair 2D ECHO LV Diastolic Diameter PLAX 4.9 cm 4.2 - 5.9 / 3.9 - 5.3 cm IVS Diastolic Thickness 1.1 cm 0.6 - 1.0 / 0.6 - 0.9 cm LVPW Diastolic Thickness 1.1 cm 0.6 - 1.0 / 0.6 - 0.9 cm LV Relative Wall Thickness 0.4 RV Internal Dim ED PLAX 2.4 cm LVOT Diameter 1.8 cm Aortic Root Diameter 2.4 cm LA Systolic Diameter LX 2.4 cm 3.0 - 4.0 / 2.7 - 3.8 cm M-MODE AV Cusp Separation MM 2.0 cm DOPPLER AV Peak Velocity 141.0 cm/s AV Peak Gradient 8.0 mmHg AV Mean Gradient 4.0 mmHg AV Velocity Time Integral 24.3 cm LVOT Peak Velocity 94.0 cm/s LVOT Peak Gradient 3.5 mmHg LVOT Velocity Time Integral 16.2 cm AV Area Cont Eq vti 1.7 cm AV Area Cont Eq pk 1.7 cm Mitral E Point Velocity 78.0 cm/s Mitral A Point Velocity 56.8 cm/s Mitral E to A Ratio 1.4 LV E' Lateral Velocity 12.3 cm/s Mitral E to LV E' Lateral Ratio 6.3 LV E' Septal Velocity 10.8 cm/s Mitral E to LV E' Septal Ratio 7.2 PV Peak Velocity 57.9 cm/s PV Peak Gradient 1.3 mmHg FINDINGS LEFT VENTRICLE Normal left ventricular size. Mild concentric left ventricular hypertrophy. The left ventricular systolic function is hyperdynamic with an estimated ejection fraction in the ra nge of 65- 70%. RIGHT VENTRICLE Normal right ventricular size and systolic function. LEFT ATRIUM The left atrial size is mildly dilated. RIGHT ATRIUM The right atrial size is normal. ATRIAL SEPTUM No atrial level shunt is demonstrated by color flow Doppler interrogation. AORTA The aortic root and proximal ascending aorta are normal in size on limited imaging. MITRAL VALVE Trace mitral valve regurgitation. AORTIC VALVE Trileaflet aortic valve. No aortic valve stenosis or regurgitation. TRICUSPID VALVE There is trace tricuspid valve regurgitation. PULMONARY VALVE No pulmonary valve regurgitation or stenosis. VESSELS The inferior vena cava is normal in size. PERICARDIUM No pericardial effusion. Rabia Dobbins MD, FACC (Electronically Signed) Final Date:21 January 2018 18:08
--- NOTE | 2018-01-21 18:23 | MB ---
cc: Kenneth Rose MD, Boon Y MD DATE OF CONSULT: 01/21/2018 REASON FOR CONSULTATION: Hematology is consulted to render an opinion regarding a patient with deep vein thrombosis. HISTORY OF PRESENT ILLNESS: The patient is a very pleasant 52-year-old female who presented to our hospital with a complaint of right groin pain. She had history of uterine leiomyosarcoma and had a hysterectomy in August of 2016. She was then treated with chemotherapy under the care of Dr. Saleem which she completed around 01/2017. She stated that since October she has been having soreness in the right groin area. It has been progressively getting worse. She has had outpatient ultrasound which did not show any blood clot. Yesterday her primary physician, Dr. Swartz, sent her for CT abdomen and pelvis which unfortunately showed a new bulky soft tissue mass in the right pelvis extending into the right common iliac region. There was bony disruption involving inferior right ilium and superior acetabular region. There was also noted to be thrombus in the right common iliac vein that extended into the inferior vena cava. She was told to come to the emergency room. She denies any chest pain. She denies any shortness of breath or cough. She has history of a patent foramen ovale. She denies any headaches. She denies any visual changes. She denies any focal numbness or weakness. She has no fever, chills, night sweats or weight loss. She denies any nausea, vomiting or diarrhea. PAST MEDICAL HISTORY: Uterine leiomyosarcoma, patent foramen ovale. PAST SURGICAL HISTORY: Complete hysterectomy 08/2016. FAMILY HISTORY: Father had lung cancer, sister had leukemia. She has 3 children, all healthy. SOCIAL HISTORY: She quit tobacco more than 30 years ago, drinks occasionally. ALLERGIES: CARISOPRODOL. OUTPATIENT MEDICATIONS: Taking vitamins. REVIEW OF SYSTEMS: CONSTITUTIONAL: As above. EYES: Negative. ENT: Negative. CARDIOVASCULAR: Denies any chest pressure or palpitations. RESPIRATORY: Denies any shortness of breath or cough. GASTROINTESTINAL: Denies any nausea, vomiting, diarrhea or abdominal pain. GENITOURINARY: Denies dysuria or hematuria. MUSCULOSKELETAL: As above. HEMATOLOGIC: As above. ENDOCRINE: Negative. DERMATOLOGY: Negative. PSYCHIATRIC: Negative. NEUROLOGIC: Negative. PHYSICAL EXAMINATION: VITAL SIGNS: Temperature 98.4, blood pressure 125/71, O2 saturation 95% on room air. GENERAL: She is alert and oriented x3 in no acute distress. HEENT: Normocephalic, atraumatic. Pupils equal, round, reactive to light. Extraocular muscles intact. No scleral icterus. Oropharynx dry mucosa, no lesions. No thrush. No mucositis. NECK: No thyromegaly, no palpable mass. LYMPHATIC: No palpable cervical, clavicular, axillary or inguinal lymph node. CARDIOVASCULAR: Regular S1, S2. No murmur. LUNGS: Clear to auscultation anteriorly. ABDOMEN: Soft, nontender. I could not palpate liver or spleen. EXTREMITIES: No cyanosis or clubbing, no significant edema. No calf tenderness. She is tender in the right groin area. NEUROLOGIC: She has a hard time lifting up her right lower extremity due to pain. LABORATORY DATA: Dated 01/21/2018 reviewed. ASSESSMENT: 1. Deep vein thrombosis. CT abdomen and pelvis showed thrombus in the right common iliac vein that extended into the inferior vena cava. The blood clot I think is provoked by underlying malignancy. She has a bulky mass in the right pelvis extending into the right common iliac region and the mass may have narrowed the right common iliac vein. She was started on heparin. She has no chest pain or pulmonary symptom. She has history of patent foramen ovale but she has no symptom of stroke. I had an extensive discussion with patient, her and her daughter at the bedside. I told her she has significant thrombus in the common iliac vein extending into the inferior vena cava. She has a high risk of having emboli either to the lung or to the brain, given she has patent foramen ovale. Given the high risk, we talked about placing a inferior vena cava filter which may protect her against embolic event. However, the inferior vena cava filter itself can cause potential complication with blood clots around the filter in the future. I told her she will still need to be on anticoagulation even she has inferior vena cava filter placement. In fact, with inferior vena cava filter placement, I would recommend that she stay on long-term anticoagulation. We also talked about possibly placing a retrievable inferior vena cava filter that could be removed a few weeks or months down the road once her blood clot resolves or stabilizes. I told her she would likely has recurrence of uterine leiomyosarcoma and she is going to need more chemotherapy which could result in thrombocytopenia and may have to stop the anticoagulation due to low blood count, with the inferior vena cava filter, she will be somewhat protected against embolic event is she has to stop anticoagulation. She would like to think over her options and talk to family. She also would like to talk to Dr. Saleem first. Anyway it is already late in the evening and we cannot put an inferior vena cava filter at this time. I will discuss with her again in the morning. For now, she should continue with the heparin drip. 2. Uterine leiomyosarcoma. She had a complete hysterectomy 08/2016. She was then treated with Gemzar and Taxotere which she completed around 01/2017. CT now shows bulky soft tissue mass in the right pelvis that extended into the right common iliac region. This could be recurrent disease/adenopathy. There is also a new area of bony destruction involving inferior right ilium and superior acetabulum. I think that is the reason she has pain in the area and has a hard time lifting up her right leg. She has a high risk of developing a pathological fracture. I think she will need evaluation by orthopedic surgeon and possible radiation. She will continue to be under the care of Dr. Saleem. 3. Patent foramen ovale. RECOMMENDATION: 1. Discussion with patient and family. 2. Continue heparin drip. 3. We will discuss with patient again in the morning to see if she agrees to proceed with an IVC filter placement. 4. Management of uterine cancer per Dr. Saleem. Thank you, Dr. Johns, for asking me to see this patient. MD CAMI Maya//jannet , 05:18 PM , 06:08 PM [facility]
--- NOTE | 2018-01-21 19:13 | RC ---
cc: Jasper Beal MD DATE OF SERVICE: 01/21/2018 HISTORY OF PRESENT ILLNESS: Ms. Pitts is a 52-year-old female. She has a history of a sarcoma resected by Dr. Saleem. She recently presents with hip pain increasing over time. She underwent CT imaging outpatient demonstrating involvement of the iliac bone above the acetabulum. She was initially diagnosed with a stage IV leiomyosarcoma. She underwent IV chemotherapy with Gemzar and Taxotere and then had no evidence of disease for sometime. She is known to have a new area of bony destruction, inferior right ileum, superior acetabulum region. She was seen in the ER. She does report pain in the upper right thigh/groin area. She may undergo biopsy of this area. We discussed potential palliation radiation therapy as well. PAST MEDICAL HISTORY: Significant for: 1. Leiomyosarcoma, stage IV, diagnosed August 2016. 2. Migraines. 3. Congenital heart defect. 4. Exploratory laparotomy, hysterectomy, BSO, omentectomy, staging 5. Uterine ablation. 6. Appendectomy. 7. Cholecystectomy. MEDICATIONS: Naloxone, morphine, folate, paroxetine. SOCIAL HISTORY: Lives with . She drinks alcohol occasionally. Quit smoking greater than 20 years ago. PHYSICAL EXAMINATION: VITAL SIGNS: Noted. EXTREMITIES: Without clubbing, cyanosis or edema. NEUROLOGIC: Alert and oriented. Follows commands. MUSCULOSKELETAL: Right leg swelling. RADIOGRAPHIC IMAGING DATA: Outpatient imaging consistent with bone metastasis, right iliac area. RECOMMENDATIONS: We discussed palliative radiation therapy. Discussed her case with Dr. Saleem. She is thinking about she would like to do. Will follow up with her. In terms of treatment recommendations, we discussed a short course of palliative radiation therapy to the right iliac crest. She expressed a good understanding of treatment approach. Follow up NOTE: She does wish to proceed with palliative radiation therapy. She will be scheduled for a ct simulation 01-23-18. MD RAVINDER Carlos/SANTO/jannet , 06:42 PM , 07:00 PM [facility]
--- NOTE | 2018-01-21 20:11 | MB ---
cc: Devora Saleem MD,Devora Rose,Kenneth Swartz,Chandrika Dumont,Ruth Beal,Jasper Johns,Chasity Wall MD DATE OF CONSULT: 01/21/2018 REQUESTING PHYSICIAN: Dr. Rona Johns and Dr. Marie Bryant. REASON FOR CONSULTATION: History of stage IV uterine leiomyosarcoma. REASON FOR ADMISSION: Symptomatic right hip pain, right lower extremity deep vein thrombosis, imaging suggesting a mass in the right pelvis, lower extremity weakness. HISTORY OF PRESENT ILLNESS: Elizabeth Pitts's findings are reviewed. She is seen, counseled by me and examined by me in conjunction with our nurse practitioner (Eyad Aguila). I agree with her findings, assessment and plan of care. This is a delight 52-year-old female who, when we first met her, presented with a very large uterine mass, bleeding, underwent surgical exploration, hysterectomy, bilateral salpingo-oophorectomy, partial omentectomy. There was a 3 cm metastatic tumor in the omentum. No gross residual disease remained after the surgery, but she was staged as stage IV leiomyosarcoma which originated in the uterus, given the findings of abdominal disease. She underwent chemotherapy with Taxotere and gemcitabine. She completed her treatment 1 year ago (in 01/2017) and has been doing well until recent weeks. She reports that for approximately the last 4 weeks she has had progressive weakness of the lower extremities, so much so for the last 4 weeks she estimates she has been using a walker. She is seen and counseled in conjunction with friends and family members who state that she essentially has no capacity to bear weight on her legs. She can barely go 3 or 4 steps and that requires someone holding her unless she has her walker. When she uses her walker, she is essentially doing all of the work with her upper body. The pain in the hip and the swelling as well as the limited range of motion at the hip became progressively worse such that she was seen by her primary care physician who ordered a CAT scan. The CAT scan was done at [facility] which showed a mass-like effect against the right pelvic sidewall in the right iliac region. There are some anatomical changes to the acetabulum and ilium of the hip girdle suggesting tumor recurrence against the right pelvic sidewall with invasion into the bony structures. There is no other overt evidence of metastatic disease. There is a 1.2 cm renal nodule of uncertain significance. No overt adenopathy, ascites, omental thickening or other abnormalities detected. She has been seen by Dr. Kenneth Rose, hematology oncology, and it is my understanding his recommendation is for anticoagulation therapy, but that is to follow an inferior vena cava filter placement. She has a thrombus that is in the right common iliac vein and extends into the inferior vena cava. She has a history of some type of congenital heart defect. She reports having a hole in her heart. She cannot remember with certainty if it was an ASD or VSD or a patent foramen ovale or other. Nevertheless, this may increase risk of problems from thromboembolic disease so inferior vena cava filter is recommended prior to anticoagulation therapy. I also had the opportunity to speak with Dr. Jasper Beal in radiation oncology. I believe this problem could best be initially addressed with palliative radiation therapy to the right pelvic sidewall and right hip structure involved with tumor to help suppress the tumor, hopefully stabilize the bony pelvis and he has already seen her in consultation as well. PAST MEDICAL HISTORY/SURGICAL HISTORY/MEDICATIONS/FAMILY HISTORY, ALLERGIES AND REVIEW OF SYSTEMS: Reviewed and as are documented in the chart. I do not have any new information to add to that. Objective findings on the CAT scan findings as noted above. LABORATORY DATA: H and H 12.7 and 37.8, white count 7.2, platelets 258. Electrolytes essentially normal, preserved renal function, BUN and creatinine of 15 and 0.7. It appears as though heparin has been initiated and her most recent PTT is 65.5. PHYSICAL EXAMINATION: VITAL SIGNS: She is afebrile. Pulse 65-74, respirations 17-18, blood pressure 125-143 over 65-83, O2 saturations are greater than or equal to 94%. GENERAL: She has her usual bright affect, bright spirit, alert and oriented x3 in no acute distress. She appears to be and reports to be resting comfortably at the present time with adequate pain control. HEENT: Pupils equal, round, reactive to light. Extraocular movements intact. Mucous membranes are moist, pink. No supraclavicular or cervical adenopathy. CARDIOVASCULAR: Regular rate and rhythm. LUNGS: Clear to auscultation. BACK: No CVA tenderness or spinal point tenderness. ABDOMEN: Nontender. No overt mass. LOWER EXTREMITIES: She has some swelling in both of her legs, more prominent on the right especially above the knee and in the region of the hip. She has decreased range of motion, especially at the hip. She cannot lift her leg off the bed. There is some mild reproducible tenderness in the right hip lateral to the groin area. There is no tenderness in the popliteal fossa or no palpable cords. Peripheral pulses are intact. SKIN: Warm and dry. Discussion is held with Elizabeth Pitts, her family and friends who are present for the discussion. I am sorry she is feeling poorly. She is aware of the findings as summarized above and feels as though things have been explained well thus far. She has no significant questions other than our advice regarding treatment. I agree with recommendations of colleague consultants for palliative radiation to that right hip and right pelvic sidewall. I agree with Dr. Rose's recommendation for inferior vena cava filter placement prior to anticoagulation. After completing radiation to the right hip, we would consider systemic chemotherapy. Even though there is no overt measurable disease elsewhere, we are concerned about the possibility of microscopic or small volume disease at other sites that is not yet detectable on imaging and may be able to be suppressed to some extent with chemotherapy. Whether or not we would consider reusing gemcitabine and Taxotere versus alternative regimen is uncertain. We will consider that. It has been a year since exposure to chemotherapy and she did respond well given initial diagnosis of stage IV disease and was without evidence of disease for a number of months after treatment. Discussion ensued, questions were answered to the best of my capacity. They expressed good understanding. They were grateful for the time spent and we certainly hope we can get her feeling better soon. ASSESSMENT: 1. Stage IV uterine leiomyosarcoma. 2. Apparent recurrent disease against the right pelvic sidewall and right hip with findings as described above. 3. Secondary pain, decreased mobility, decreased weight bearing capacity. 4. Right lower extremity deep vein thrombosis extending from the iliac vein into the inferior vena cava. 5. Extensive discussion. PLAN: 1. Palliative radiation to the right pelvis and right hip under the direction of Dr. Jasper Beal. 2. Inferior vena cava filter placement followed by anticoagulation therapy under the direction of Dr. Kenneth Rose. 3. Supportive care, pain management and physical therapy and rehab when it is determined that it is safe and to help determine whether or not weight bearing is acceptable. 4. She is to follow up with us as an outpatient for further discussion and consideration of chemotherapy after she completes her radiation therapy. Thank you for the consultation. We will follow along in her care. MD JULIO Kennedy//jannet , 06:02 PM , 06:52 PM
[2018-01-21] MEDS ORDERED: HEPARIN SODIUM - IV 10,000 UNITS/10 ML VIAL IV PUSH PRN ×2 (23:15)
[2018-01-22] VITALS (14 sets, daily range): BP systolic 112–143; BP diastolic 58–81; PULSE 53–75; RESP 16–18; TEMP 96–97.8; O2SAT 95–99
[2018-01-22] MEDS: ACETAMINOPHEN/HYDROcodone 325 MG/5 MG TAB PO PRN ×4 (02:23→18:34)
[2018-01-22] MEDS: CYANOCOBALAMIN 1,000 MCG TAB PO SCH (07:57)
[2018-01-22] MEDS: PYRIDOXINE HCL 50 MG TAB PO SCH (07:57)
[2018-01-22] MEDS: FOLIC ACID 1 MG TAB PO SCH (07:57)
[2018-01-22] MEDS: CHOLECALCIFEROL (VIT D3) 1000 UNIT TAB PO SCH (07:58)
[2018-01-22] MEDS: SODIUM CHLORIDE 0.9% FLUSH 10 ML FLUSH IV FLUSH SCH ×2 (07:58→21:40)
[2018-01-22] MEDS: CALCIUM/VITAMIN D 250 MG/125 U TAB PO SCH ×2 (07:58→09:09)
[2018-01-22] MEDS: MORPHINE SULFATE 2 MG/ML INJ IV PUSH PRN ×2 (10:53→21:35)
[2018-01-22] MEDS ORDERED: LORazepam 2 MG/ML VIAL ONE (11:24)
--- NOTE | 2018-01-22 12:10 | PD.ONC.PN ---
Subjective Subjective Remarks Afebrile overnight. Patient resting in bed in nad. No complaints. Waiting to go for IVC scan. Denies pain at present. No bleeding. Objective Data Date Time Temp Pulse Resp B/P (MAP) Pulse Ox O2 Delivery O2 Flow Rate FiO2 01/22/18 08:02 18 01/22/18 08:00 96.0 60 18 139/75 (96) 99 01/22/18 04:05 97.0 53 17 112/58 (76) 95 01/22/18 03:49 54 01/22/18 00:06 56 01/22/18 00:05 96.6 63 17 120/64 (82) 97 01/21/18 23:18 Room Air 01/21/18 21:20 58 01/21/18 20:40 97.1 70 17 118/71 (87) 98 01/21/18 19:08 18 01/21/18 16:32 98.4 76 18 125/71 (89) 95 Room Air 01/21/18 13:01 98.6 65 18 130/65 (86) 95 Room Air 01/22/18 01/22/18 01/22/18 07:00 15:00 23:00 Intake Total 480 ml Balance 480 ml Result Diagram: 01/21/18 0620 01/21/18 0620 Laboratory Results Laboratory Tests Test 01/21/18 18:10 01/21/18 21:11 01/22/18 04:32 Activated Partial Thromboplast Time 92.6 SEC 25.9 SEC 60.4 SEC Administered Medications Medications (Trade) Dose Ordered Sig/Blaise Route PRN Reason Start Time Stop Time Status Last Admin Dose Admin Heparin Sodium/ Dextrose 250 ml @ 16 mls/hr TITRATE PRN IV Coagulation Management 01/20/18 22:45 01/21/18 16:39 Sodium Chloride (NS Flush) 2 ml BID IV FLUSH 01/21/18 09:00 01/22/18 07:58 Morphine Sulfate (Morphine Inj) 2 mg Q3H PRN IV PUSH BREAKTHROUGH PAIN 01/20/18 23:15 01/22/18 10:53 Cholecalciferol (Vitamin D3) 1,000 units DAILY PO 01/21/18 09:00 01/22/18 07:58 Cyanocobalamin (Vitamin B12) 2,000 mcg DAILY PO 3/14/18 09:00 01/22/18 07:57 Folic Acid (Folate) 1 mg DAILY PO 01/21/18 09:00 01/22/18 07:57 Pyridoxine HCl (Vitamin B6) 100 mg DAILY PO 01/21/18 09:00 01/22/18 07:57 Acetaminophen/ Hydrocodone Bitart (Mercedita 5-325 Mg) 1 tab Q4H PRN PO PAIN 3-6 01/21/18 08:00 01/21/18 16:36 Acetaminophen/ Hydrocodone Bitart (Mercedita 5-325 Mg) 2 tab Q4H PRN PO PAIN 7-10 01/21/18 08:00 01/22/18 06:53 Heparin Sodium (Porcine) (Heparin Inj) 2,500 units UNSCH PRN IV PUSH aPTT 25 to 39 01/21/18 23:15 01/21/18 23:31 Calcium/Vitamin D (Oscal-D 250-125) 500 mg DAILY PO 01/22/18 09:00 01/22/18 09:09 Objective Remarks GENERAL: Pleasant middle aged female, lying supine in bed in [facility]. SKIN: Warm and dry. HEAD: Normocephalic. EYES: No injection or drainage. NECK: Supple, trachea midline CARDIOVASCULAR: Regular rate and rhythm RESPIRATORY: Breath sounds equal bilaterally. No accessory muscle use. GASTROINTESTINAL: Abdomen soft, non-tender, nondistended. EXTREMITIES: No cyanosis NEUROLOGICAL: No obvious focal deficit. Awake, alert, and oriented x3. Assessment/Plan Problem List: (1) DVT (deep venous thrombosis) ICD Codes: I82.409 - Acute embolism and thrombosis of unspecified deep veins of unspecified lower extremity Plan: --on heparin gtt --awaiting IVC filter placement. CT ab/pelvis-- +thrombus in right common iliac vein extending into the inferior vena cava. --has a high risk of having emboli either to the lung or to the brain, given she has patent foramen ovale. (2) Uterine cancer ICD Codes: C55 - Malignant neoplasm of uterus, part unspecified Status: Acute Plan: --per Dr. Saleem, [employer] oncology --s/p complete hysterectomy 08/2016. then treated with Gemzar and Taxotere which she completed around 01/2017. --CT now shows bulky soft tissue mass in the right pelvis that extended into the right common iliac region. could be recurrent disease/adenopathy. There is also a new area of bony destruction involving inferior right ilium and superior acetabulum. 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 h/o Uterine leiomyosarcoma, patent foramen ovale. Plan 1. consult invasive radiology for IVC filter placement. 2. continue heparin gtt until placement. Attending Statement The exam, history, and the medical decision-making described in the above note were completed with the assistance of the mid-level provider. I reviewed and agree with the findings presented. I attest that I had a [id number] encounter with the patient on the same day, and personally performed and documented my assessment and findings in the medical record. No CP/SOB. No bleeding. She has decided to have IVC filter. Consult IR to place IVC filter. Continue heparin and can transition to oral anticoagulant like Eliquis once she is done with invasive procedure. Discussed with pt and her . Problem Qualifiers (1) DVT (deep venous thrombosis): Qualified Codes: I82.421 - Acute embolism and thrombosis of right iliac vein (2) Uterine cancer: Qualified Codes: C55 - Malignant neoplasm of uterus, part unspecified Nohemi Ann Jan 22, 2018 12:10 Kenneth Rose MD Jan 22, 2018 13:55
[2018-01-22] MEDS ORDERED: IOHEXOL 350 MG/ML 50 ML BTL (for Cath Lab) IVCONTRAST ONE (12:12)
--- NOTE | 2018-01-22 12:40 | PD.RAD ---
Post Procedure Progress Note Pre Procedure Diagnosis: (1) DVT (deep venous thrombosis) Post Procedure Diagnosis: (1) DVT (deep venous thrombosis) Procedure Date: Jan 22, 2018 Supervising Radiologist: Jackson Champion Proceduralist/Assist: Fior Gomez, RT(R), RT Bill(R) Anesthesia: Local Plan of Activity Patient to Unit: ROPU Patient Condition: Good See PACS Report for procedural detail/treatment Jackson Champion MD Jan 22, 2018 12:40
--- NOTE | 2018-01-22 12:41 | RADRPT ---
EXAM DATE/TIME: 01/22/2018 11:45 [facility] COMPARISON: No previous studies available for comparison. INDICATIONS : 52 year-old female with history of uterine CA and newly diagnosed IVC and iliac DVT. Patient also has a history of PFO. Extensive discussion regarding risks and benefits of IVC filters to include risks of filter migration, leg fracture and caval penetration. Additionally, extensive discussion regarding risks and benefits of temporary versus non-retrievable filter. MEDICAL HISTORY : Uterine cancer PAD SURGICAL HISTORY : Hysterectomy Appendectomy Ovariectomy ENCOUNTER: Initial ACUITY: 2 days PAIN SCORE: 6/10 LOCATION: Right groin FLUORO TIME: 1.3 minutes IMAGE SERIES: 2 ACCESS SITE: Right Internal jugular vein CONTRAST: 1.) 10 cc Omnipaque (iohexol) 350 DEVICE(S): 1.) Inferior vena cava B Roblero Venatech filter PROCEDURE : 1. Ultrasound-guided venipuncture. 2. Inferior venacavogram. 3. Inferior vena cava filter placement. The risks, benefits and alternatives to the procedure were explained and verbal and written consent w as obtained. The site was prepped in sterile fashion. Full sterile technique was used, including ca p, mask, sterile gloves and gown and a large sterile sheet. Hand hygiene and 2% chlorhexidine and/or betadine/alcohol prep was utilized per protocol for cutaneous antisepsis. Sterile gel and sterile p robe cover were utilized for ultrasound guidance. The skin and subcutaneous tissues were infiltrated with local anesthetic solution. With ultrasound and fluoroscopic guidance the targeted vein was punctured and a vascular sheath was p laced. Inferior venacavogram was performed to demonstrate level of renal veins. A large distal caval thrombus was demonstrated. The prescribed filter was deployed in the infrarenal inferior vena cava. F ollowing deployment the filter was identified in good position. The patient tolerated the procedure well and there were no complications. The patient was sent to pos t anesthesia recovery in stable condition. CONCLUSION: 1. Large distal IVC thrombus. 2. Uncomplicated inferior vena cava filter placement as above. Jackson Champion MD on January 22, 2018 at 12:28 Board Certified Radiologist. This report was verified electronically.
--- NOTE | 2018-01-22 13:09 | HHI.PR ---
Subjective Remarks Patient complaint of same right groin pain. No other issues. No shortness of breath or chest pain. Objective Vitals Vital Signs Date Time Temp Pulse Resp B/P (MAP) Pulse Ox O2 Delivery O2 Flow Rate FiO2 01/22/18 12:58 96.1 66 18 143/81 (101) 98 01/22/18 08:02 18 01/22/18 08:00 96.0 60 18 139/75 (96) 99 01/22/18 04:05 97.0 53 17 112/58 (76) 95 01/22/18 03:49 54 01/22/18 00:06 56 01/22/18 00:05 96.6 63 17 120/64 (82) 97 01/21/18 23:18 Room Air 01/21/18 21:20 58 01/21/18 20:40 97.1 70 17 118/71 (87) 98 01/21/18 19:08 18 01/21/18 16:32 98.4 76 18 125/71 (89) 95 Room Air I/O 01/21/18 01/21/18 01/21/18 01/22/18 01/22/18 01/22/18 07:00 15:00 23:00 07:00 15:00 23:00 Intake Total 480 ml Balance 480 ml Intake Oral 480 ml # Voids 1 # Bowel Movements 0 Result Diagram: 01/21/18 0620 01/21/18 0620 Objective Remarks GENERAL: This is a well-nourished, well-developed patient, in no apparent distress. CARDIOVASCULAR: Normal rate and regular rhythm without murmurs, gallops, or rubs. RESPIRATORY: Good respiratory efforts. Breath sounds equal and clear to auscultation bilaterally. GASTROINTESTINAL: Abdomen soft, non-tender, non-distended. Normal active bowel sounds MUSCULOSKELETAL: Some tenderness to palpation over the right groin. NEURO: Alert & Oriented x4 to person, place, time, situation. Moves all ext x4 PSYCH: Appropriate mood and affect. 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 continue with Heparin drip- Hematology following. Plan for IVC filter placement today. right hip pain with history of uterine cancer CT of the abdomen and pelvis new SOFT tissue mass in the right pelvis and extending into the right common iliac region. In this location, this could represent adenopathy. New area of bony destruction involving the inferior right ilium and superior acetabular region. This is thought almost certainly be involved with tumor either from direct extension or metastatic spread. It is the only suspicious bone lesions and making direct extension more likely. This lesion is at risk for pathological fracture given its location. continue with pain control- following Appreciate Radiation Oncology and CHIEF DATA OFFICER/ONC input. Plan for palliative radiation right renal mass- f/u as outpatient Caitlin Reid MD Jan 22, 2018 13:09
[2018-01-22] MEDS ORDERED: LORazepam 2 MG/ML VIAL IV ONE (13:15)
[2018-01-22] MEDS: HEPARIN 25,000 UNITS-D5W 250 ML - PREMIX IV PRN (14:36)
[2018-01-22] MEDS ORDERED: BISACODYL 10 MG SUPP RECTAL PRN (17:15)
[2018-01-22] MEDS ORDERED: LACTULOSE SYRUP 20 GM/30 ML CUP PO PRN (17:15)
[2018-01-22] MEDS ORDERED: MAGNESIUM HYDROXIDE SUSP 30 ML CUP PO PRN (17:15)
[2018-01-22] MEDS: SENNOSIDES 8.6 MG TAB PO PRN (18:35)
[2018-01-23] VITALS (7 sets, daily range): BP systolic 115–127; BP diastolic 61–72; PULSE 61–73; RESP 16–18; TEMP 96.4–97.7; O2SAT 94–98
[2018-01-23] MEDS: ACETAMINOPHEN/HYDROcodone 325 MG/5 MG TAB PO PRN ×5 (00:55→21:09)
[2018-01-23 05:23] LABS: HEMATOCRIT 37.3 % (35.0-46.0); HEMOGLOBIN 12.4 GM/DL (11.6-15.3); MEAN CELL VOLUME 90.6 FL (80.0-100.0); MEAN CORPUSCULAR HEMOGLOBIN 30.1 PG (27.0-34.0); MEAN CORPUSCULAR HGB CONC 33.2 % (32.0-36.0); MEAN PLATELET VOLUME 8.6 FL (7.0-11.0); PLATELET COUNT 257 TH/MM3 (150-450); RED BLOOD COUNT 4.11 MIL/MM3 (4.00-5.30); RED CELL DISTRIBUTION WIDTH 13.4 % (11.6-17.2); WHITE BLOOD COUNT 6.8 TH/MM3 (4.0-11.0)
[2018-01-23] MEDS: HEPARIN 25,000 UNITS-D5W 250 ML - PREMIX IV PRN (05:51)
[2018-01-23] MEDS: FOLIC ACID 1 MG TAB PO SCH (07:32)
[2018-01-23] MEDS: PYRIDOXINE HCL 50 MG TAB PO SCH (07:32)
[2018-01-23] MEDS: CALCIUM/VITAMIN D 250 MG/125 U TAB PO SCH (07:32)
[2018-01-23] MEDS: CHOLECALCIFEROL (VIT D3) 1000 UNIT TAB PO SCH (07:32)
[2018-01-23] MEDS: CYANOCOBALAMIN 1,000 MCG TAB PO SCH (07:32)
[2018-01-23] MEDS: SODIUM CHLORIDE 0.9% FLUSH 10 ML FLUSH IV FLUSH SCH ×2 (07:34→21:00)
--- NOTE | 2018-01-23 10:16 | HHI.PR ---
Subjective . no new c/o adequate pain control Objective . afeb, vss a&o x3, nad IVC filter insertion site clean, dry Assessment/Plan . HD#3 15 minutes of 15 minute face to face encounter spent in counseling & coordination of care Q&A regarding findings, plan for XRT, chemotherapy to be considered after completion of XRT I discussed with Dr. Beal and followed up with her & her with additional information Plan for treatment simulation today Ongoing anticoagulation per Devora Matthew cpm, MD Jan 23, 2018 10:16
--- NOTE | 2018-01-23 11:33 | HHI.PR ---
Subjective Remarks Patient reports right groin pain is the same. No other issues. NOLAN RN. Objective Vitals Vital Signs Date Time Temp Pulse Resp B/P (MAP) Pulse Ox O2 Delivery O2 Flow Rate FiO2 01/23/18 08:43 16 01/23/18 08:00 96.4 62 16 119/67 (84) 96 01/23/18 04:00 97.1 62 16 122/62 (82) 94 01/23/18 00:00 96.8 73 18 115/61 (79) 95 01/22/18 23:46 62 01/22/18 22:51 Room Air 01/22/18 21:44 18 01/22/18 20:28 70 01/22/18 20:00 97.8 75 16 95 01/22/18 15:45 97.0 60 18 116/63 (80) 98 01/22/18 14:43 96.2 66 18 115/69 (84) 98 01/22/18 14:15 97.1 65 18 119/69 (86) 98 01/22/18 13:46 97.4 74 18 112/68 (83) 97 01/22/18 13:15 96.6 71 18 134/76 (95) 96 01/22/18 12:58 96.1 66 18 143/81 (101) 98 I/O 01/22/18 01/22/18 01/22/18 01/23/18 01/23/18 01/23/18 07:00 15:00 23:00 07:00 15:00 23:00 Intake Total 480 ml 600 ml 360 ml Output Total 300 ml Balance 480 ml 600 ml 60 ml Intake Oral 480 ml 600 ml 360 ml Output Urine Total 300 ml # Voids 1 1 # Bowel Movements 0 0 0 Result Diagram: 01/23/18 0444 01/21/18 0620 Objective Remarks GENERAL: This is a well-nourished, well-developed patient, in no apparent distress. CARDIOVASCULAR: Normal rate and regular rhythm without murmurs, gallops, or rubs. RESPIRATORY: Good respiratory efforts. Breath sounds equal and clear to auscultation bilaterally. GASTROINTESTINAL: Abdomen soft, non-tender, non-distended. Normal active bowel sounds MUSCULOSKELETAL: Some tenderness to palpation over the right groin. NEURO: Alert & Oriented x4 to person, place, time, situation. Moves all ext x4 PSYCH: Appropriate mood and affect. 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 On Heparin drip- S/P IVC filter placement. Transitioning to Lovenox per Hematology. Right hip pain with history of uterine cancer: High concern for recurrence. CT of the abdomen and pelvis new SOFT tissue mass in the right pelvis and extending into the right common iliac region. In this location, this could represent adenopathy. New area of bony destruction involving the inferior right ilium and superior acetabular region. This is thought almost certainly be involved with tumor either from direct extension or metastatic spread. It is the only suspicious bone lesions and making direct extension more likely. This lesion is at risk for pathological fracture given its location. continue with pain control- following Appreciate Radiation Oncology and FEATHER CUTTING MACHINE FEEDER/ONC input. Plan for palliative radiation ongoing right renal mass- f/u as outpatient Caitlin Reid MD Jan 23, 2018 11:33
--- NOTE | 2018-01-23 11:37 | PD.ONC.PN ---
Subjective Subjective Remarks Afebrile overnight. Patient resting in bed in nad. No complaints. Received IVC filter yesterday. Tolerating heparin gtt. Objective Data Date Time Temp Pulse Resp B/P (MAP) Pulse Ox O2 Delivery O2 Flow Rate FiO2 01/23/18 08:43 16 01/23/18 08:00 96.4 62 16 119/67 (84) 96 01/23/18 04:00 97.1 62 16 122/62 (82) 94 01/23/18 00:00 96.8 73 18 115/61 (79) 95 01/22/18 23:46 62 01/22/18 22:51 Room Air 01/22/18 21:44 18 01/22/18 20:28 70 01/22/18 20:00 97.8 75 16 95 01/22/18 15:45 97.0 60 18 116/63 (80) 98 01/22/18 14:43 96.2 66 18 115/69 (84) 98 01/22/18 14:15 97.1 65 18 119/69 (86) 98 01/22/18 13:46 97.4 74 18 112/68 (83) 97 01/22/18 13:15 96.6 71 18 134/76 (95) 96 01/22/18 12:58 96.1 66 18 143/81 (101) 98 01/23/18 01/23/18 01/23/18 07:00 15:00 23:00 Intake Total 360 ml Output Total 300 ml Balance 60 ml Result Diagram: 01/23/18 0444 01/21/18 0620 Laboratory Results Laboratory Tests Test 01/22/18 13:50 01/22/18 21:22 01/23/18 04:44 01/23/18 05:52 Activated Partial Thromboplast Time 25.0 SEC 54.1 SEC 101.7 SEC White Blood Count 6.8 TH/MM3 Red Blood Count 4.11 MIL/MM3 Hemoglobin 12.4 GM/DL Hematocrit 37.3 % Mean Corpuscular Volume 90.6 FL Mean Corpuscular Hemoglobin 30.1 PG Mean Corpuscular Hemoglobin Concent 33.2 % Red Cell Distribution Width 13.4 % Platelet Count 257 TH/MM3 Mean Platelet Volume 8.6 FL Test 01/23/18 10:27 Activated Partial Thromboplast Time 50.5 SEC Administered Medications Medications (Trade) Dose Ordered Sig/Blaise Route PRN Reason Start Time Stop Time Status Last Admin Dose Admin Sodium Chloride (NS Flush) 2 ml BID IV FLUSH 01/21/18 09:00 01/23/18 07:34 Morphine Sulfate (Morphine Inj) 2 mg Q3H PRN IV PUSH BREAKTHROUGH PAIN 01/20/18 23:15 01/22/18 21:35 Cholecalciferol (Vitamin D3) 1,000 units DAILY PO 01/21/18 09:00 01/23/18 07:32 Cyanocobalamin (Vitamin B12) 2,000 mcg DAILY PO 01/21/18 09:00 01/23/18 07:32 Folic Acid (Folate) 1 mg DAILY PO 01/21/18 09:00 01/23/18 07:32 Pyridoxine HCl (Vitamin B6) 100 mg DAILY PO 01/21/18 09:00 01/23/18 07:32 Acetaminophen/ Hydrocodone Bitart ([place] 5-325 Mg) 1 tab Q4H PRN PO PAIN 3-6 01/21/18 08:00 01/21/18 16:36 Acetaminophen/ Hydrocodone Bitart ([place] 5-325 Mg) 2 tab Q4H PRN PO PAIN 7-10 01/21/18 08:00 01/23/18 07:33 Calcium/Vitamin D (Oscal-D 250-125) 500 mg DAILY PO 01/22/18 09:00 01/23/18 07:32 Magnesium Hydroxide (Milk Of Magnesia Liq) 30 ml Q12H PRN PO Mild constipation 01/22/18 17:15 01/22/18 21:35 Sennosides (Senokot) 17.2 mg Q12H PRN PO Moderate constipation 01/22/18 17:15 01/22/18 18:35 Lactulose (Lactulose Liq) 30 ml DAILY PRN PO SEVERE CONSITIPATION 01/22/18 17:15 01/23/18 07:43 Objective Remarks GENERAL: Pleasant female, lying in bed resting in nad. SKIN: Warm and dry. HEAD: Normocephalic. EYES: No injection or drainage. NECK: Supple, trachea midline CARDIOVASCULAR: Regular rate and rhythm RESPIRATORY: Breath sounds equal bilaterally. No accessory muscle use. GASTROINTESTINAL: Abdomen soft, non-tender, nondistended. EXTREMITIES: No cyanosis NEUROLOGICAL: awake and alert, normal speech. moving extremities. Assessment/Plan Problem List: (1) DVT (deep venous thrombosis) ICD Codes: I82.409 - Acute embolism and thrombosis of unspecified deep veins of unspecified lower extremity Plan: --s/p IVC filter placement on 01/22 CT ab/pelvis-- +thrombus in right common iliac vein extending into the inferior vena cava. --has a high risk of having emboli either to the lung or to the brain, given she has patent foramen ovale. (2) Uterine cancer ICD Codes: C55 - Malignant neoplasm of uterus, part unspecified Status: Acute Plan: --d/w Dr. Saleem on 01/23, no further procedures planned at present, will start Lovenox today. --Dr. Lian xavier, plans to start radiation underway. --s/p complete hysterectomy 08/2016. then treated with Gemzar and Taxotere which she completed around 01/2017. --CT now shows bulky soft tissue mass in the right pelvis that extended into the right common iliac region. could be recurrent disease/adenopathy. There is also a new area of bony destruction involving inferior right ilium and superior acetabulum. 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 h/o Uterine leiomyosarcoma, patent foramen ovale. Plan 1. stop heparin gtt 2. start Lovenox 80mg SQ q 12 hours. 3. once closer to discharge, will switch to NOAC. Attending Statement The exam, history, and the medical decision-making described in the above note were completed with the assistance of the mid-level provider. I reviewed and agree with the findings presented. I attest that I had a dfra-at-ohgi encounter with the patient on the same day, and personally performed and documented my assessment and findings in the medical record. No CP/SOB. No bleeding. Tolerating heparin. Discussed with and no invasive procedure planned, will switch to lovenox and consider transition of NOAC in 2- 3 days. S/p IVC filter placement 01/22. Discussed with pt and her . Problem Qualifiers (1) DVT (deep venous thrombosis): Qualified Codes: I82.421 - Acute embolism and thrombosis of right iliac vein (2) Uterine cancer: Qualified Codes: C55 - Malignant neoplasm of uterus, part unspecified Coye,Nohemi Monserrat PA Jan 23, 2018 11:37 Kenneth Rose MD Jan 23, 2018 16:26
[2018-01-23] MEDS: ENOXAPARIN SODIUM 100 MG/ML SYRINGE SQ SCH (12:51)
[2018-01-23] MEDS: SENNOSIDES 8.6 MG TAB PO PRN (19:48)
[2018-01-24] VITALS: BP 135/69; PULSE 68; RESP 18; TEMP 97.5; O2SAT 98
[2018-01-24] MEDS: ENOXAPARIN SODIUM 100 MG/ML SYRINGE SQ SCH ×2 (00:46→11:36)
[2018-01-24] MEDS: ACETAMINOPHEN/HYDROcodone 325 MG/5 MG TAB PO PRN ×4 (00:47→14:06)
[2018-01-24 04:00] VITALS: BP 133/68; PULSE 59; RESP 18; TEMP 96.7; O2SAT 97
[2018-01-24 08:00] VITALS: BP 135/74; PULSE 57; RESP 16; TEMP 96; O2SAT 97
[2018-01-24] MEDS: FOLIC ACID 1 MG TAB PO SCH (08:42)
[2018-01-24] MEDS: CYANOCOBALAMIN 1,000 MCG TAB PO SCH (08:43)
[2018-01-24] MEDS: SODIUM CHLORIDE 0.9% FLUSH 10 ML FLUSH IV FLUSH SCH (08:43)
[2018-01-24] MEDS: CALCIUM/VITAMIN D 250 MG/125 U TAB PO SCH (08:43)
[2018-01-24] MEDS: CHOLECALCIFEROL (VIT D3) 1000 UNIT TAB PO SCH (08:43)
[2018-01-24] MEDS: PYRIDOXINE HCL 50 MG TAB PO SCH (08:43)
[2018-01-24] MEDS: MORPHINE SULFATE 2 MG/ML INJ IV PUSH PRN (11:36)
[2018-01-24 12:00] VITALS: BP 153/71; PULSE 62; RESP 16; TEMP 96.5; O2SAT 99
--- NOTE | 2018-01-24 13:35 | HHI.FF ---
Face to Face Verification Diagnosis: (1) DVT (deep venous thrombosis) (2) Uterine cancer Physical Therapy Order: Evaluate and Treat, Strength and gait training Home Health Nursing Order: Medical education Nursing assessment with vital signs I have seen patient Elizabeth Pitts on 01/24/18. My clinical findings support the need for the requested home health care services because: Deconditioned w/ increased weakness Injectable med education/admin I certify that my clinical findings support that this patient is homebound because: Unsteady gait/balance Caitlin Reid MD Jan 24, 2018 13:35
[2018-01-24] MEDS ORDERED: ENOX150I SQ (13:44)
[2018-01-24] MEDS ORDERED: HYDR-3516 PO (13:44)
--- NOTE | 2018-01-24 13:45 | HHI.DS ---
Discharge Summary Admission Date Jan 20, 2018 at 23:07 Discharge Date: Jan 24, 2018 Admitting Diagnosis RIGHT ILIAC DVT EXTENDING TO IVC, POSS LEIMYOSARCOMA RECURRENCE (1) Uterine cancer ICD Code: C55 - Malignant neoplasm of uterus, part unspecified Status: Acute (2) DVT (deep venous thrombosis) ICD Code: I82.409 - Acute embolism and thrombosis of unspecified deep veins of unspecified lower extremity Procedures IVC filter placement Brief History - From Admission HPI from the admitting physician Patient reported that for the past 2 months, she has been having this right upper thigh pain. She rated pointed mainly to the right below the right inguinal area. She reports that she has had multiple imaging studies done as an outpatient without any results. She then had a CT abdomen and pelvis done yesterday at [facility] ordered by her doctor. She was called by her doctor to go to the emergency room today Apart from the above pain, patient denies any other symptoms. Denies any fever/nausea/vomiting/diarrhea. Denies any abdominal pains or pelvic pain. She states that her pain is in fact in this right upper thigh . CBC/BMP: 01/23/18 0444 01/21/18 0620 Significant Findings Laboratory Tests Test 01/21/18 18:10 01/21/18 21:11 01/22/18 04:32 01/22/18 13:50 Activated Partial Thromboplast Time 92.6 SEC (24.3-30.1) 60.4 SEC (24.3-30.1) Test 01/22/18 21:22 01/23/18 04:44 01/23/18 05:52 01/23/18 10:27 Activated Partial Thromboplast Time 54.1 SEC (24.3-30.1) 101.7 SEC (24.3-30.1) 50.5 SEC (24.3-30.1) Test 01/23/18 16:14 Imaging Last Impressions IVC Filter Placement X-Ray 01/22/18 0000 Signed Impressions: Service Date/Time: January 11:45 - CONCLUSION: 1. Large distal IVC thrombus. 2. Uncomplicated inferior vena cava filter placement as above. Jackson Champion MD PE at Discharge GENERAL: This is a well-nourished, well-developed patient, in no apparent distress. CARDIOVASCULAR: Normal rate and regular rhythm without murmurs, gallops, or rubs. RESPIRATORY: Good respiratory efforts. Breath sounds equal and clear to auscultation bilaterally. GASTROINTESTINAL: Abdomen soft, non-tender, non-distended. Normal active bowel sounds MUSCULOSKELETAL: Some tenderness to palpation over the right groin. NEURO: Alert & Oriented x4 to person, place, time, situation. Moves all ext x4 PSYCH: Appropriate mood and affect. Pt update on day of discharge Patient reports she is feeling better. She is ambulating with the help of a walker. We discussed discharge planning at length. Case discussed with oncology [employer]. Patient can be discharged home to follow-up outpatient Hospital Course 52-year-old female admitted and treated for the following: Right common iliac vein DVT extending into the IVC. Patient was treated with heparin drip. She underwent IVC filter placement. She was followed by hematology and transitioned to Lovenox. She is discharged home on Lovenox per hematology recommendations and to follow-up outpatient with hematology. Right hip pain with history of uterine cancer: High concern for recurrence. CT of the abdomen and pelvis new SOFT tissue mass in the right pelvis and extending into the right common iliac region. In this location, this could represent adenopathy. New area of bony destruction involving the inferior right ilium and superior acetabular region. This is thought almost certainly be involved with tumor either from direct extension or metastatic spread. It is the only suspicious bone lesions and making direct extension more likely. This lesion is at risk for pathological fracture given its location. continue with pain control- followed the patient Appreciate Radiation Oncology and CHRONOMETER ADJUSTER/ONC input. Patient underwent simulation. Radiation to be done outpatient right renal mass- f/u as outpatient Pt Condition on Discharge: Good Discharge Disposition: Disch w/ Home Health Serv Discharge Time: > 30 minutes Discharge Instructions DIET: Follow Instructions for: Heart Healthy Diet Activities you can perform: Regular-No Restrictions Follow up Referrals: Oncology Oncology/Hematology - 1 Week with Amisha Hardy Oncology/Hematology - 1 Week with Jasper Beal MD New Medications: Enoxaparin Inj (Enoxaparin Inj) 150 Mg/Ml Syr 150 MG SQ DAILY for Blood Clot Prevention, #7 SYRINGE 0 Refills Hydrocodone/Acetaminophen (Hydrocodone-Acetamin 5-325 mg) 5 Mg-325 Mg Tablet 1 TAB PO Q4H PRN for PAIN GREATER THAN 5, #20 Continued Medications: Calcium Carbonate-Cholecalciferol (Calcium 600 with Vitamin D) 600-400 mg-Unit Tab 1 TAB PO DAILY for Calcium Supplement, TAB 0 Refills Cholecalciferol (Vitamin D-1000) 1,000 Unit Tab 1000 UNITS PO DAILY for Nutritional Supplement, #1 BOTTLE 0 Refills Cyanocobalamin ER (Vitamin B-12 ER) 2,000 Mcg Tab 2000 MCG PO DAILY for Nutritional Supplement, #1 BOTTLE 0 Refills Diclofenac Potassium (Diclofenac Potassium) 50 Mg Tab 50 MG PO TID PRN for PAIN SCALE 1 TO 10, #21 TAB 0 Refills Folic Acid (Folic Acid) 0.4 Mg Tab 400 MCG PO DAILY for Nutritional Supplement, TAB 0 Refills Furosemide (Furosemide) 40 Mg Tab 40 MG PO DAILY for PREVENT EDEMA, #30 TAB 0 Refills Potassium Chloride ER (Potassium Chloride ER) 10 Meq Cap 10 MEQ PO DAILY for Electrolyte Replacement, #30 CAP 0 Refills Pyridoxine (Vitamin B-6) 100 Mg Tab 100 MG PO DAILY for Nutritional Supplement, #30 TAB 0 Refills Discontinued Medications: Methylprednisolone Dosepak (Medrol Dosepak) 4 Mg Dspk 4 MG PO DIRECTED, #1 DSPK 0 Refills Per Pharmacist direction Caitlin Reid MD Jan 24, 2018 13:44
== END 2018-01-24 15:47 | disposition home health service (06) | DRG 253 ==
LOC: NEPE 18:37 → NEDA 23:07 → NEDH 01-21 03:21 → N06B 01-21 18:28
PROVIDERS: ADMIT Family Medicine; ATTEND Family Medicine
PROC: 06H03DZ Insertion of Intraluminal Device into Inferior Vena Cava, Percutaneous Approach (ICD-10-PCS; principal; 2018-01-22)
PROC: B5191ZZ Fluoroscopy of Inferior Vena Cava using Low Osmolar Contrast (ICD-10-PCS; 2018-01-22)
DX: I82.421 Acute embolism and thrombosis of right iliac vein (principal); Q21.1 Atrial septal defect; N28.89 Other specified disorders of kidney and ureter; M25.551 Pain in right hip; Z85.42 Personal history of malignant neoplasm of other parts of uterus; Z92.21 Personal history of antineoplastic chemotherapy; Z87.891 Personal history of nicotine dependence
CPT/HCPCS: 37191; 77263; 77290; 77334; 80048; 80053; 85025; 85027; 85610; 85730; 93306; 99222; 99285; C1769; C1880; J1644; J1650; J2060; J2270; Q9967

== ENCOUNTER → 2018-03-12 | Day surgery (SDC) | payer BC ==
[~2018-03-12] MED LIST changes: +APIX5TAB PO; +BUPIVACAINE HCL PF 0.5% 30 ML VIAL ONE; +COLA100C5 PO; +DOCET20P; +ENOX150I SQ; +FENT50DI T-DERMAL; +FURO20TA PO; +HYDR-3516 PO; -MEDR4PAK PO; +MEPERIDINE HCL 25 MG/ML VIAL IV ONE; +METO10TA PO; +OXYC-395 PO; +PROPOFOL 200 MG/20 ML AMP IV ONE; +TRIAMCINOLONE ACETONIDE 40 MG/ML VIAL I-ARTICULR ONE; +VITA500T83 PO; +ZOFR8TAB PO; +methylPREDNISolone ACETATE 40 MG/ML VIAL I-ARTICULR ONE
--- NOTE | 2018-03-12 11:06 | M6 ---
cc: Annamarie Jefferson MD DATE: 03/12/2018 DATE OF : 1965. PROCEDURE PERFORMED: Fluoroscopically-guided injection of the right hip joint. History and physical was completed and signed. Consent was signed. Procedure site was marked. Medications were listed and reconciled. Pain score was recorded. Allergies were noted. Time out was taken. Fluoroscopy time was recorded where applicable. Sedation was administered or directed by Dr. Jefferson. The patient was given oxygen. The patient was monitored by a registered nurse. Total procedure time was greater than 15 minutes. PROCEDURE NOTE: An IV was started. Blood pressure cuff, pulse oximeter and EKG were applied. The patient was placed in the supine position on a Stephen table, sedated with small amounts of propofol titrated to effect. Vital signs were monitored and remained stable throughout the procedure. The right hip area was prepped with alcohol and 10% Betadine solution and draped with sterile drapes. Fluoroscopy was used to visualize the acetabulum. A 5 inch, 22-gauge spinal needle was advanced into the dorsal aspect of the acetabulum. There was negative aspiration for blood or any other type of fluid and the patient was given 5 mL of 0.5% Marcaine, 20 mg of Depo-Medrol and 20 mg of Kenalog. Following this the patient was taken to the recovery room with stable vital signs, neurologically intact. MD CLAUDY Allan/GERMAN , 10:37 AM , 10:48 AM
== END | disposition home or self-care (01) ==
LOC: PHSDC 09:08
PROVIDERS: ATTEND Pain Medicine Interventional Pain Medicine
DX: M25.551 Pain in right hip (principal)
CPT/HCPCS: 20610; 99152; J1030; J2175; J3301

== ENCOUNTER 2018-10-05 14:27 | Inpatient (IN) ==
[2018-10-05] MEDS ORDERED: Morphine Inj 4 MG/ML Vial IV.PUSH ONE (15:39)
[2018-10-05] MEDS ORDERED: Sod Chloride 0.9% Inj 1,000 ML IV.SIG ONE (15:39)
--- NOTE | 2018-10-05 16:02 | ED ---
HPI General Chief complaint: Nausea/Vomiting/Diarrhea Stated complaint: Abd Pain/Nausea Complaint Time Seen by Provider: 10/05/18 15:22 Source: patient, RN notes reviewed and old records reviewed Limitations: no limitations History of Present Illness HPI narrative: 53-year-old female presents to the emergency department for evaluation of nausea, vomiting since receiving chemotherapy last week. Patient states she had chemotherapy on Friday at [facility]. On Friday, she received Neulasta. She follows with Dr. Saleem here. She has history of uterine cancer with metastasis to the right hip and pelvis. Patient states that she is also spitting up "foam". She reports some shortness of breath when she is spitting up, none at this time. No chest pain. No fevers or chills. No headache. She reports abdominal tenderness diffusely. She also has right hip pain. She has been unable to take any of her pain medication due to vomiting. Patient does have history of DVT in the right lower extremity, had IVC filter placed, on . Patient went to the oncology center here at [place] and had a liter of IV fluid, but did not improve so she was referred to the emergency department. Moderate severity. Onset (ago): day(s) (6) Location: abdomen Radiation: non-radiation Severity: moderate Severity scale (1-10): 4 Quality: aching Pain Consistency: constant Relieving factors: none Exacerbating factors: none Associated symptoms: Reports loss of appetite, malaise, nausea/vomiting and shortness of breath; Denies confusion, chest pain, cough, diaphoresis, fever/ chills, headaches, rash, seizure, syncope and weakness Treatments prior to arrival: Reports other (1 L IVF) Related Data Home Medications Medication Instructions Recorded Confirmed apixaban [Eliquis] 5 mg PO BID 05/25/18 10/05/18 docusate sodium [Colace] 100 mg PO BID 05/25/18 10/05/18 furosemide [Lasix] 20 mg PO BID PRN 05/25/18 10/05/18 metoclopramide HCl 10 mg PO TID 05/25/18 10/05/18 ondansetron HCl [Zofran] 8 mg PO TID PRN 05/25/18 10/05/18 oxycodone 10 mg PO Q4-6H PRN 05/25/18 10/05/18 Allergies Allergy/AdvReac Type Severity Reaction Status Date / Time carisoprodol Allergy Severe HYPOTENSION Verified 10/05/18 15:24 doxorubicin Allergy Severe BP Verified 10/05/18 15:24 DROPPED;RED FACE;BACK SWELLING Review of Systems ROS: all other systems reviewed are negative PMFSH Medical History Medical History Cancer of uterus (Acute) Primary cancer of uterus with metastasis to other site (Acute) Social History Social History Substance History: No History of Abuse Second Hand Smoke Exposure: No Smoking Status: Former smoker Tobacco Type: Cigarettes How Often Do You Have a Drink Containing Alcohol: Never Recent Travel in [facility] within the Last 8 Weeks: No Recent Out of Country Travel within the Last 8 Weeks: No Immunization History Tetanus Immunization: >5 Years Exam Narrative Exam Narrative: GENERAL: Well-nourished, well-developed female patient, afebrile SKIN: Focused skin assessment warm/dry. HEAD: Normocephalic. Atraumatic EYES: No scleral icterus. No injection or drainage. NECK: Supple, trachea midline. No JVD or lymphadenopathy. CARDIOVASCULAR: Regular rhythm without murmurs, gallops, or rubs. Patient is slightly tachycardic RESPIRATORY: Breath sounds equal bilaterally. No accessory muscle use. Lung sounds are clear to auscultation GASTROINTESTINAL: Abdomen soft and nondistended. She reports mild tenderness diffusely to palpation. MUSCULOSKELETAL: No cyanosis, or edema. BACK: Nontender without obvious deformity. No CVA tenderness. Course Initial Documented Vital Signs Temperature 98.1 F 10/05/18 14:33 Pulse Rate 120 H 10/05/18 14:33 Respiratory Rate 18 10/05/18 14:33 Blood Pressure 147/89 H 10/05/18 14:33 Pulse Oximetry 95 10/05/18 14:33 Last Documented Vital Signs Temperature 97.9 F 10/05/18 18:13 Pulse Rate 106 H 10/05/18 19:18 Respiratory Rate 18 10/05/18 19:18 Blood Pressure 135/88 10/05/18 19:18 Pulse Oximetry 95 10/05/18 19:18 Medical Decision Making MDM Narrative Medical decision making narrative: 53-year-old female presents to the emergency department for evaluation nausea vomiting since receiving chemotherapy last week , unresponsive to 1 L IV fluid prior to arrival. IV access obtained. EKG, CBC , CMP, magnesium, CK, troponin, PTT, PT/INR, UA are ordered and pending. CT of the abdomen/pelvis with IV contrast, chest x-ray ordered and pending. Patient is given normal saline 1 L IV bolus, Zofran 4 mg IV, morphine 4 mg IV. EKG shows sinus tachycardia, HR 104, prolonged QT interval. CBC shows normal WBC of 5.3, neutrophil percentage 94.4, 1+ toxic granulation. CMP shows elevated BUN 71, creatinine 1.65, hyperglycemia 173, elevated bilirubin 4.6, AST 443, ALT 883. Lipase is 105. Magnesium is 2.5. CK is 297. Troponin is 1.15. PTT is 31.5. PT/INR is 11.2/1.1. UA shows 21 WBCs, few bacteria. Chest x-ray shows scattered nodular densities bilaterally consistent with possible metastatic disease, dedicated CT of the chest will be helpful for confirmation. CT of the abdomen/pelvis shows significant deterioration in the appearance of the pelvis with advancing pelvic soft tissue mass and bony metastatic disease involving the left hip, induration along the ascending colon with bowel wall thickening that could be an early colitis, increasing metastatic disease in both lungs. CT of the chest is done and shows Widespread parenchymal metastatic disease without prior chest CT; Significant deterioration from the PET scan of 2016.3. No pleural effusion. Patient states that she cannot take ASA because it makes her vomit, she is on Eliquis. I spoke with Dr. Bower, insurance agents supervisor, who agrees with heparin gtt. Dr. Cabrera accepted admission. Medical Screen Exam Complete: Yes Emergency Medical Condition: Yes Differential Diagnosis Differential Diagnosis: metabolic abnormality vs. dehydration vs. pneumonia vs. UTI Medical Records Medical records reviewed: Yes I reviewed the patient's medical records. Lab Data Result diagrams: 10/05/18 16:00 10/05/18 16:00 Lab Results 10/05/18 10/05/18 10/05/18 Range/Units 16:00 16:00 16:00 WBC 5.3 (4.0-11.0) th/mm3 RBC 3.33 L (4.00-5.30) mil/mm3 Hgb 10.6 L (11.6-15.3) gm/dL Hct 31.7 L (35.0-46.0) % MCV 95.1 (80.0-100.0) fL MCH 31.7 (27.0-34.0) pg MCHC 33.3 (32.0-36.0) % RDW 28.5 H (11.6-17.2) % Plt Count 129 L (150-450) th/mm3 MPV 8.4 (7.0-11.0) fL Prelim Diff (Auto) Slide review pending Neut % (Auto) 94.4 H (16.0-70.0) % Lymph % (Auto) 4.4 L (9.0-44.0) % Emery % (Auto) 0.4 (0.0-8.0) % Eos % (Auto) 0.6 (0.0-4.0) % Baso % (Auto) 0.2 (0.0-2.0) % Neut # (Auto) 5.0 (1.8-7.7) th/mm3 Lymph # (Auto) 0.2 L (1.0-4.8) th/mm3 Emery # (Auto) 0.0 (0.0-0.9) th/mm3 Eos # (Auto) 0.0 (0.0-0.4) th/mm3 Baso # (Auto) 0.0 (0.0-0.2) th/mm3 WBC Differential Manual diff final Seg Neuts % (Manual) 94 H (16-70) % Band Neuts % (Manual) 2 (0-6) % Lymphocytes % (Manual) 1 L (9-44) % Monocytes % (Manual) 3 (0-8) % Abs Neuts (Manual) 5.1 (1.8-7.7) th/mm3 Differential Comment . Toxic Granulation 1+ H (None) Platelet Estimate Low L (Normal) Platelet Morphology Normal (Normal) Ovalocytes 1+ H (None) PT 11.2 (9.8-11.6) sec INR 1.1 Ratio APTT 31.5 (23.4-31.7) sec Sodium 140 (136-145) meq/L Potassium 4.7 (3.5-5.1) meq/L Chloride 109 H (98-107) meq/L Carbon Dioxide 20.3 L (21.0-32.0) meq/L Anion Gap 11 (5-15) meq/L BUN 71 H (7-18) mg/dL Creatinine 1.65 H (0.50-1.00) mg/dL Estimated GFR 32 L (>89) mL/min Random Glucose 173 H (74-106) mg/dL Lactic Acid (0.4-2.0) mmol/L Calcium 7.8 L (8.5-10.1) mg/dL Magnesium 2.5 (1.5-2.5) mg/dL Total Bilirubin 4.6 H (0.2-1.0) mg/dL AST 443 H (15-37) U/L ALT 883 H (10-53) U/L Alkaline Phosphatase 246 H (45-117) U/L Total Creatine Kinase 297 H (26-192) U/L CK-MB (CK-2) 5.8 H (0.5-3.6) ng/mL CK-MB (CK-2) % 2.0 (0.0-4.0) % Troponin I 1.15 H* (0.02-0.05) ng/mL Total Protein 5.4 L (6.4-8.2) g/dL Albumin 2.7 L (3.4-5.0) g/dL Lipase 105 (73-393) U/L Urine Color (Yellw/Straw) Urine Clarity (Clear) Urine pH (5.0-8.5) Ur Specific Spicer (1.002-1.035) Urine Protein (Neg-Trace) mg/dL Urine Glucose (UA) (Negative) mg/dL Urine Ketones (Negative) mg/dL Urine Occult Blood (Negative) Urine Nitrate (Negative) Urine Bilirubin (Negative) Urine Urobilinogen (Less than 2) mg/dL Ur Leukocyte Esterase (Negative) Urine RBC (0-3) /hpf Urine WBC (0-5) /hpf Ur Squamous Epith Cells (0-5) /hpf Urine Bacteria (None) /hpf Hyaline Casts (0-3) /lpf Urine Mucus (Occasional) /lpf Micro UA Comment Ur Microscopic Review Urine Culture Comments 10/05/18 10/05/18 10/05/18 Range/Units 16:00 16:30 17:11 WBC (4.0-11.0) th/mm3 RBC (4.00-5.30) mil/mm3 Hgb (11.6-15.3) gm/dL Hct (35.0-46.0) % MCV (80.0-100.0) fL MCH (27.0-34.0) pg MCHC (32.0-36.0) % RDW (11.6-17.2) % Plt Count (150-450) th/mm3 MPV (7.0-11.0) fL Prelim Diff (Auto) Neut % (Auto) (16.0-70.0) % Lymph % (Auto) (9.0-44.0) % Emery % (Auto) (0.0-8.0) % Eos % (Auto) (0.0-4.0) % Baso % (Auto) (0.0-2.0) % Neut # (Auto) (1.8-7.7) th/mm3 Lymph # (Auto) (1.0-4.8) th/mm3 Emery # (Auto) (0.0-0.9) th/mm3 Eos # (Auto) (0.0-0.4) th/mm3 Baso # (Auto) (0.0-0.2) th/mm3 WBC Differential Seg Neuts % (Manual) (16-70) % Band Neuts % (Manual) (0-6) % Lymphocytes % (Manual) (9-44) % Monocytes % (Manual) (0-8) % Abs Neuts (Manual) (1.8-7.7) th/mm3 Differential Comment Toxic Granulation (None) Platelet Estimate (Normal) Platelet Morphology (Normal) Ovalocytes (None) PT (9.8-11.6) sec INR Ratio APTT (23.4-31.7) sec Sodium (136-145) meq/L Potassium (3.5-5.1) meq/L Chloride (98-107) meq/L Carbon Dioxide (21.0-32.0) meq/L Anion Gap (5-15) meq/L BUN (7-18) mg/dL Creatinine (0.50-1.00) mg/dL Estimated GFR (>89) mL/min Random Glucose (74-106) mg/dL Lactic Acid 1.8 (0.4-2.0) mmol/L Calcium (8.5-10.1) mg/dL Magnesium Cancelled (1.5-2.5) mg/dL Total Bilirubin (0.2-1.0) mg/dL AST (15-37) U/L ALT (10-53) U/L Alkaline Phosphatase (45-117) U/L Total Creatine Kinase (26-192) U/L CK-MB (CK-2) (0.5-3.6) ng/mL CK-MB (CK-2) % (0.0-4.0) % Troponin I (0.02-0.05) ng/mL Total Protein (6.4-8.2) g/dL Albumin (3.4-5.0) g/dL Lipase (73-393) U/L Urine Color Asha (Yellw/Straw) Urine Clarity Hazy H (Clear) Urine pH 5.0 (5.0-8.5) Ur Specific Spicer 1.016 (1.002-1.035) Urine Protein 100 H (Neg-Trace) mg/dL Urine Glucose (UA) Negative (Negative) mg/dL Urine Ketones Negative (Negative) mg/dL Urine Occult Blood Small H (Negative) Urine Nitrate Negative (Negative) Urine Bilirubin Negative (Negative) Urine Urobilinogen 4 or greater (Less than 2) mg/dL Ur Leukocyte Esterase Negative (Negative) Urine RBC 3 (0-3) /hpf Urine WBC 21 H (0-5) /hpf Ur Squamous Epith Cells 1 (0-5) /hpf Urine Bacteria Few H (None) /hpf Hyaline Casts 4 (0-3) /lpf Urine Mucus Few H (Occasional) /lpf Micro UA Comment Cath-culture ind Ur Microscopic Review Not Reportable Urine Culture Comments Cath-cult indicated Imaging Data Radiologist's impression: Abdomen/Pelvis CT 10/05/18 15:39 . CONCLUSION: 1. Significant deterioration in the appearance of the pelvis with advancing pelvic soft tissue mass and bony metastatic disease involving the left hip 2. Induration along the ascending colon with bowel wall thickening that could be an early colitis. 3. Increasing metastatic disease in both lungs Chest X-Ray 10/05/18 15:39 CONCLUSION: Scattered nodular densities bilaterally consistent with possible metastatic disease. Dedicated CT of the chest would be helpful for confirmation. Chest CT 10/05/18 16:46 CONCLUSION: 1. Widespread parenchymal metastatic disease without prior chest CT. 2. Significant deterioration from the PET scan of 05/22/2017. 3. No pleural effusion. Discharge Plan Discharge Disposition Patient Disposition: 30 Still Patient Discharge Details Diagnosis: Non-ST elevation (NSTEMI) myocardial infarction, Colitis, UTI (urinary tract infection), Cancer, uterine Physicians Team ED Provider: Clif Foley ED Midlevel Provider: Roxana Jeffries Primary Care Provider: Chandrika Swartz Attending Provider: Munira Cabrera Rxs /Orders / Referrals /Forms Prescriptions: No Action apixaban [Eliquis] 5 mg Tablet 5 mg PO BID RF: 0 ondansetron HCl [Zofran] 8 mg Tablet 8 mg PO TID PRN (Reason: Nausea And Vomiting) RF: 0 docusate sodium [Colace] 100 mg Capsule 100 mg PO BID RF: 0 furosemide [Lasix] 20 mg Tablet 20 mg PO BID PRN (Reason: Edema) RF: 0 metoclopramide HCl 10 mg Tablet 10 mg PO TID RF: 0 oxycodone 10 mg Tablet 10 mg PO Q4-6H PRN (Reason: Pain, Severe) RF: 0 Status ED Status: Admitted Patient
[2018-10-05 16:16] LABS: Baso % (Auto) 0.2 % (0.0-2.0); Eos % (Auto) 0.6 % (0.0-4.0); Hematocrit 31.7 % (35.0-46.0); Hemoglobin 10.6 gm/dL (11.6-15.3); Lymph # (Auto) 0.2 th/mm3 (1.0-4.8); Lymph % (Auto) 4.4 % (9.0-44.0); Mean Corpuscular HGB Conc 33.3 % (32.0-36.0); Mean Corpuscular Hemoglobin 31.7 pg (27.0-34.0); Mean Corpuscular Volume 95.1 fL (80.0-100.0); Mean Platelet Volume 8.4 fL (7.0-11.0); Mono % (Auto) 0.4 % (0.0-8.0); Neut % (Auto) 94.4 % (16.0-70.0); Platelet Count 129 th/mm3 (150-450); Red Blood Count 3.33 mil/mm3 (4.00-5.30); Red Cell Distribution Width 28.5 % (11.6-17.2); White Blood Count 5.3 th/mm3 (4.0-11.0)
[2018-10-05 16:29] LABS: Albumin 2.7 g/dL (3.4-5.0); Anion Gap 11 meq/L (5-15); Aspartate Aminotransferase 443 U/L (15-37); Blood Urea Nitrogen 71 mg/dL (7-18); Calcium 7.8 mg/dL (8.5-10.1); Carbon Dioxide 20.3 meq/L (21.0-32.0); Chloride 109 meq/L (98-107); Glomerular Filtration Rate 32 mL/min (>89); Glucose,Random 173 mg/dL (74-106); Lipase 105 U/L (73-393); Magnesium 2.5 mg/dL (1.5-2.5); Potassium 4.7 meq/L (3.5-5.1); Sodium 140 meq/L (136-145)
[2018-10-05 16:30] LABS: Activated Partial Thrombo Time 31.5 sec (23.4-31.7); Alanine Aminotransferase 883 U/L (10-53); INR 1.1 Ratio; Prothrombin Time 11.2 sec (9.8-11.6)
[2018-10-05 16:34] LABS: Alkaline Phosphatase 246 U/L (45-117); Creatine Kinase 297 U/L (26-192); Total Protein 5.4 g/dL (6.4-8.2)
--- NOTE | 2018-10-05 16:39 | XR ---
EXAM DATE: 10/05/2018 4:34 PM EST AGE/SEX: 53 years / Female INDICATIONS: Short of breath after chemotherapy. CLINICAL DATA: This is the patient's initial encounter. Patient reports that signs and symptoms have been present for 4 - 6 days and indicates a pain score of 0/10. MEDICAL/SURGICAL HISTORY: Carcinoma, uterine. . Hysterectomy. Appendectomy. Ovariectomy. COMPARISON: TLI, PET/CT TUMOR, 05/22/2017. . FINDINGS: Scattered nodular densities are noted bilaterally consistent with possible metastatic disease. Dedica marty CT of the chest would be helpful for confirmation. Right internal jugular [id number] has its t ip in the superior vena cava. There is no pneumothorax. No focal infiltrate is noted. The heart is no rmal. CONCLUSION: Scattered nodular densities bilaterally consistent with possible metastatic disease. Dedicated CT of the chest would be helpful for confirmation. Electronically signed by: Raghu Guardado MD 10/05/2018 4:37 PM EST
[2018-10-05 16:47] LABS: Troponin I 1.15 ng/mL (0.02-0.05)
[2018-10-05 16:56] LABS: Lymphocytes 1 % (9-44); Monocytes 3 % (0-8); Toxic Granulation 1+
[2018-10-05 16:57] LABS: Ovalocytes 1+; Platelet Morphology Normal (Normal)
[2018-10-05 17:00] LABS: Creatine Kinase MB 5.8 ng/mL (0.5-3.6)
[2018-10-05 17:14] LABS: Bacteria,Urine Few /hpf; Bilirubin,Urine Negative (Negative); Clarity,Urine Hazy (Clear); Color,Urine Amber (Yellw/Straw); Glucose,Urine (UA) Negative (Negative); Hyaline Casts,Urine 4 /lpf (0-3); Leukocyte Esterase,Urine Negative (Negative); Mucus,Urine Few /lpf (Occasional); Nitrite,Urine Negative (Negative); Specific Gravity,Urine 1.016 (1.002-1.035); Squamous Epithelial Cell,Urine 1 /hpf (0-5); Urobilinogen,Urine 4 or Greater mg/dL (Less than 2)
--- NOTE | 2018-10-05 19:12 | CT ---
EXAM DATE: 10/05/2018 5:57 PM EST AGE/SEX: 53 years / Female INDICATIONS: Abnormal chest xray , uterine cancer with mets CLINICAL DATA: This is the patient's initial encounter. Patient reports that signs and symptoms have been present for 1 day and indicates a pain score of 4/10. MEDICAL/SURGICAL HISTORY: . Uterine cancer with mets Hysterectomy. Appendectomy. RADIATION DOSE: 19.96 CTDI (mGy) ; Combined studies COMPARISON: No prior exams available for comparison. TECHNIQUE: Multiple contiguous axial images were obtained through the chest during bolus infusion of 48 ml Visipaque 320 (iodixanol) nonionic water-soluble contrast as a cumulative dose for multiple e xams. Images were obtained in suspended respiration using multiple row detector helical technique. Using automated exposure control and adjustment of the mA and/or kV according to patient size, radia tion dose was kept as low as reasonably achievable to obtain optimal diagnostic quality images. DICO M format image data is available electronically for review and comparison. FINDINGS: LUNGS: Multiple metastases in both lungs largest in the right base measuring 5.7 cm. There is no pleu ral effusion. No pleural effusion MEDIASTINUM: There is no axillary adenopathy. There is no mediastinal adenopathy. UPPER ABDOMINAL CONTENTS: Gallbladder wall thickening is present with fluid around the gallbladder. No obvious metastasis in the portion of the liver visualized. No evidence for bony metastasis. CONCLUSION: 1. Widespread parenchymal metastatic disease without prior chest CT. 2. Significant deterioration from the PET scan of 05/22/2017. 3. No pleural effusion. Electronically signed by: Arturo Moon MD 10/05/2018 7:11 PM EST
--- NOTE | 2018-10-05 19:16 | CT ---
EXAM DATE: 10/05/2018 6:08 PM EST AGE/SEX: 53 years / Female INDICATIONS: History of uterine cancer with mets Nausea vomiting pain CLINICAL DATA: This is the patient's initial encounter. Patient reports that signs and symptoms have been present for 1 day and indicates a pain score of 4/10. MEDICAL/SURGICAL HISTORY: . Uterine cancer with mets Appendectomy. Hysterectomy. ORAL CONTRAST: No oral contrast ingested. RADIATION DOSE: 19.96 CTDI (mGy) ; Combined studies COMPARISON: POI, CT ABDOMEN AND PELVIS W/ CONTRAST, 01/20/2018. . TECHNIQUE: Multiple contiguous axial images were obtained through the abdomen and pelvis following b olus infusion of 48 ml Visipaque 320 (iodixanol) nonionic water-soluble contrast as a cumulative do se for multiple exams. No oral contrast ingested. Using automated exposure control and adjustment of the mA and/or kV according to patient size, radiation dose was kept as low as reasonably achievable to obtain optimal diagnostic quality images. DICOM format image data is available electronically for review and comparison. FINDINGS: Again seen are the multiple areas of metastatic disease in the lower lungs new from the comparison st udy. Moderate fatty replacement to the liver. There is no evidence for metastatic disease to the liver. Fluid around the gallbladder without gallbladder wall thickening Or bowel wall thickening in the hunter ascending colon with some induration in the mesentery suggesting a colitis. Vena cava filter in good position. There is no retroperitoneal adenopathy. Bulky extensive metastatic disease involving the right iliac wing and right hemipelvis now extending into the hip with progression from the pelvic sidewall. . CONCLUSION: 1. Significant deterioration in the appearance of the pelvis with advancing pelvic soft tissue mass and bony metastatic disease involving the left hip 2. Induration along the ascending colon with bowel wall thickening that could be an early colitis. 3. Increasing metastatic disease in both lungs Electronically signed by: Arturo oMon MD 10/05/2018 7:14 PM EST
[2018-10-05] MEDS ORDERED: Ciprofloxacin 400 MG/200 ML 400 MG/200 ML PIGGYBACK IV.SIG ONE (19:19)
[2018-10-05] MEDS ORDERED: Heparin Drip 25,000 UNIT/250 ML BAG IV.CONT PRN (19:51)
--- NOTE | 2018-10-05 20:41 | P.HP ---
History of Present Illness Service: [facility] Primary Care Physician: Chandrika Swartz MD History of Present Illness: 53-year-old female with a past medical history significant for uterine cancer with metastasis to the bone and lungs and history of DVT on Eliquis presents to the emergency department for the evaluation of nausea/vomiting/diarrhea since Friday afternoon. The patient last had chemotherapy at [facility] on Friday and Friday. She reports that she has not felt well since that time. She denies any fevers or chills. Complains of abdominal pain. Endorses left-sided chest pain that she describes as a pressure. Nonradiating. Intermittent shortness of breath. No focal deficits. Inpatient Certification: I certify that the inpatient services were ordered in accordance with Medicare regulations governing the order. This includes certification that hospital inpatient services are reasonable and necessary and in the case of services not specified as inpatient-only under 42 CFR 419.22(n), that they are appropriately provided as inpatient services in accordance to with the 2-midnight benchmark under 43 CFR 412.3(e) Estimated Total Length of Stay (Days): 3 Plans for Post Hospital Care: Not yet determined Review of Systems All other systems reviewed negative except as stated in HPI PMFSH - History History Provided By: Patient - Medical History Medical History: Medical History (Last Updated 10/05/18 @ 20:32 by Munira Cabrera MD) Cancer of uterus H/O: hysterectomy History of DVT (deep vein thrombosis) Port-A-Cath in place Presence of IVC filter Primary cancer of uterus with metastasis to other site - Surgical History Surgical History: Surgical History (Last Updated 10/05/18 @ 20:32 by Munira Cabrera MD) Hx of appendectomy - Family History Family History: Family History (Last Updated 10/05/18 @ 20:32 by Munira Carbera MD) Other Coronary artery disease Diabetes mellitus - Tobacco History Second Hand Smoke Exposure: No Tobacco Use In Past 30 Days: No Smoking Status: Former smoker Tobacco Type: Cigarettes - Alcohol History How Often Do You Have a Drink Containing Alcohol: Never - Substance Use History Substance History: No History of Abuse - Travel History Recent Travel in the [place] Within the Last 8 Weeks: No Recent Travel Out of the Country Within the Last 8 Weeks: No - Immunization History Tetanus Immunization: >5 Years Medications and Allergies Active Medications: Active Medications Heparin Sodium/Dextrose (Heparin/D5w 25,000 U/250 Ml) 25,000 unit in 250 mls @ 0 mls/hr IV.CONT TITRATE PRN; Protocol PRN Reason: Per Protocol Last Admin: 10/05/18 20:14 Dose: 1,000 units/hr, 10 mls/hr Sodium Chloride (Ns Flush) 2 ml IV.FLUSH PRN PRN PRN Reason: FLUSH AFTER USING IV ACCESS Last Admin: 10/05/18 16:03 Dose: 2 ml Allergies Allergy/AdvReac Type Severity Reaction Status Date / Time carisoprodol Allergy Severe HYPOTENSION Verified 10/05/18 15:24 doxorubicin Allergy Severe BP Verified 10/05/18 15:24 DROPPED;RED FACE;BACK SWELLING Home Medications Medication Instructions Recorded Confirmed Type apixaban [Eliquis] 5 mg PO BID 05/25/18 10/05/18 History docusate sodium [Colace] 100 mg PO BID 05/25/18 10/05/18 History furosemide [Lasix] 20 mg PO BID PRN 05/25/18 10/05/18 History metoclopramide HCl 10 mg PO TID 05/25/18 10/05/18 History ondansetron HCl [Zofran] 8 mg PO TID PRN 05/25/18 10/05/18 History oxycodone 10 mg PO Q4-6H PRN 05/25/18 10/05/18 History Exam Vital signs: Vital Signs 10/05/18 14:33 10/05/18 16:03 10/05/18 16:52 Temperature 98.1 F 97.9 F Pulse Rate 120 H 104 H Respiratory Rate 18 17 20 Blood Pressure 147/89 H 137/86 Pulse Oximetry 95 97 10/05/18 18:13 10/05/18 19:18 Temperature 97.9 F Pulse Rate 107 H 106 H Respiratory Rate 15 18 Blood Pressure 129/88 135/88 Pulse Oximetry 96 95 Intake & Output 10/05/18 10/05/18 10/06/18 06:59 18:59 06:59 Intake Total 1000 / 1000 100 / 100 Balance 1000 / 1000 100 / 100 Weight 92.533 kg Intake: IV 1000 / 1000 100 / 100 NS Inj 1,000 ML @ Wide Open IV. 1000 / 1000 SIG BOLUS ONE Rx#:[id number] Flagyl 500 MG Inj 100 ML @ 100 100 / 100 mls/hr IV.SIG ONCE ONE Rx#: [id number] Narrative: Gen.: No acute distress Head: Normocephalic. Atraumatic. EENT: Pupils equal round and reactive to light. Nose without drainage. Airway intact. Throat without injection. Cardiovascular: Regular rate and rhythm. No murmurs, rubs or gallops. Respiratory: Lungs clear to auscultation bilaterally. No wheezes or rhonchi. Abdomen: Soft, nontender, nondistended. No peritoneal signs. Musculoskeletal: No gross deformities. No edema. Skin: No obvious rashes or erythema. Neuro: Sensory and motor grossly intact. Cranial nerves II through XII grossly intact. Results - Labs CBC & Chem 7: 10/05/18 16:00 10/05/18 16:00 Labs: Laboratory Results - last 24 hr 10/05/18 10/05/18 10/05/18 16:00 16:00 16:00 WBC 5.3 RBC 3.33 L Hgb 10.6 L Hct 31.7 L MCV 95.1 MCH 31.7 MCHC 33.3 RDW 28.5 H Plt Count 129 L MPV 8.4 Prelim Diff (Auto) Slide review pending Neut % (Auto) 94.4 H Lymph % (Auto) 4.4 L [place] % (Auto) 0.4 Eos % (Auto) 0.6 Baso % (Auto) 0.2 Neut # (Auto) 5.0 Lymph # (Auto) 0.2 L [place] # (Auto) 0.0 Eos # (Auto) 0.0 Baso # (Auto) 0.0 WBC Differential Manual diff final Seg Neuts % (Manual) 94 H Band Neuts % (Manual) 2 Lymphocytes % (Manual) 1 L Monocytes % (Manual) 3 Abs Neuts (Manual) 5.1 Differential Comment . Toxic Granulation 1+ H Platelet Estimate Low L Platelet Morphology Normal Ovalocytes 1+ H PT 11.2 INR 1.1 APTT 31.5 Sodium 140 Potassium 4.7 Chloride 109 H Carbon Dioxide 20.3 L Anion Gap 11 BUN 71 H Creatinine 1.65 H Estimated GFR 32 L Random Glucose 173 H Lactic Acid Calcium 7.8 L Magnesium 2.5 Total Bilirubin 4.6 H AST 443 H ALT 883 H Alkaline Phosphatase 246 H Total Creatine Kinase 297 H CK-MB (CK-2) 5.8 H CK-MB (CK-2) % 2.0 Troponin I 1.15 H* Total Protein 5.4 L Albumin 2.7 L Lipase 105 Urine Color Urine Clarity Urine pH Ur Specific [place] Urine Protein Urine Glucose (UA) Urine Ketones Urine Occult Blood Urine Nitrate Urine Bilirubin Urine Urobilinogen Ur Leukocyte Esterase Urine RBC Urine WBC Ur Squamous Epith Cells Urine Bacteria Hyaline Casts Urine Mucus Micro UA Comment Ur Microscopic Review Urine Culture Comments 10/05/18 10/05/18 10/05/18 16:00 16:30 17:11 WBC RBC Hgb Hct MCV MCH MCHC RDW Plt Count MPV Prelim Diff (Auto) Neut % (Auto) Lymph % (Auto) [place] % (Auto) Eos % (Auto) Baso % (Auto) Neut # (Auto) Lymph # (Auto) [place] # (Auto) Eos # (Auto) Baso # (Auto) WBC Differential Seg Neuts % (Manual) Band Neuts % (Manual) Lymphocytes % (Manual) Monocytes % (Manual) Abs Neuts (Manual) Differential Comment Toxic Granulation Platelet Estimate Platelet Morphology Ovalocytes PT INR APTT Sodium Potassium Chloride Carbon Dioxide Anion Gap BUN Creatinine Estimated GFR Random Glucose Lactic Acid 1.8 Calcium Magnesium Cancelled Total Bilirubin AST ALT Alkaline Phosphatase Total Creatine Kinase CK-MB (CK-2) CK-MB (CK-2) % Troponin I Total Protein Albumin Lipase Urine Color Asha Urine Clarity Hazy H Urine pH 5.0 Ur Specific [place] 1.016 Urine Protein 100 H Urine Glucose (UA) Negative Urine Ketones Negative Urine Occult Blood Small H Urine Nitrate Negative Urine Bilirubin Negative Urine Urobilinogen 4 or greater Ur Leukocyte Esterase Negative Urine RBC 3 Urine WBC 21 H Ur Squamous Epith Cells 1 Urine Bacteria Few H Hyaline Casts 4 Urine Mucus Few H Micro UA Comment Cath-culture ind Ur Microscopic Review Not Reportable Urine Culture Comments Cath-cult indicated - Imaging Impressions Abdomen/Pelvis CT 10/05/18 15:39 . CONCLUSION: 1. Significant deterioration in the appearance of the pelvis with advancing pelvic soft tissue mass and bony metastatic disease involving the left hip 2. Induration along the ascending colon with bowel wall thickening that could be an early colitis. 3. Increasing metastatic disease in both lungs Chest X-Ray 10/05/18 15:39 CONCLUSION: Scattered nodular densities bilaterally consistent with possible metastatic disease. Dedicated CT of the chest would be helpful for confirmation. Chest CT 10/05/18 16:46 CONCLUSION: 1. Widespread parenchymal metastatic disease without prior chest CT. 2. Significant deterioration from the PET scan of 05/22/2017. 3. No pleural effusion. Caprini VTE Risk Assessment Caprini VTE Risk Assessment: Moderate/High Risk (score >= 2) Caprini Risk Assessment Model: Point Value = 1 Point Value = 2 Point Value = 3 Point Value = 5 Age 41-60 Minor surgery BMI > 25 kg/m2 Swollen legs Varicose veins or History of unexplained or recurrent spontaneous Oral contraceptives or hormone replacement Sepsis (< 1 month) Serious lung disease, including pneumonia (< 1 month) Abnormal pulmonary function Acute myocardial infarction Congestive heart failure (< 1 month) History of inflammatory bowel disease Medical patient at bed rest Age 61-74 Arthroscopic surgery Major open surgery (> 45 min) Laparoscopic surgery (> 45 min) Malignancy Confined to bed (> 72 hours) Immobilizing plaster cast Central venous access Age >= 75 History of VTE Family history of VTE Factor V Leiden Prothrombin [id number] Lupus anticoagulant Anticardiolipin antibodies Elevated serum homocysteine Heparin-induced thrombocytopenia Other congenital or acquired thrombophilia Stroke (< 1 month) Elective arthroplasty Hip, pelvis, or leg fracture Acute spinal cord injury (< 1 month) Prophylaxis Regimen: Total Risk Factor Score Risk Level Prophylaxis Regimen 0-1 Low Early ambulation 2 Moderate Order ONE of the following: *Sequential Compression Device (SCD) *Heparin 5000 units SQ BID 3-4 Higher Order ONE of the following medications: *Heparin 5000 units SQ TID *Enoxaparin/Lovenox 40 mg SQ daily (WT < 150 kg, CrCl > 30 mL/min) *Enoxaparin/Lovenox 30 mg SQ daily (WT < 150 kg, CrCl > 10-29 mL/min) *Enoxaparin/Lovenox 30 mg SQ BID (WT < 150 kg, CrCl > 30 mL/min) AND/OR *Sequential Compression Device (SCD) 5 or more Highest Order ONE of the following medications: *Heparin 5000 units SQ TID (Preferred with Epidurals) *Enoxaparin/Lovenox 40 mg SQ daily (WT < 150 kg, CrCl > 30 mL/min) *Enoxaparin/Lovenox 30 mg SQ daily (WT < 150 kg, CrCl > 10-29 mL/min) *Enoxaparin/Lovenox 30 mg SQ BID (WT < 150 kg, CrCl > 30 mL/min) AND *Sequential Compression Device (SCD) Assessment and Plan - Plan Assessment/plan: 1. NSTEMI Patient reports chest pain and has a troponin of 1.15 EKG shows sinus tachycardia, pulse 104, nonspecific ST changes without ST segment elevation or depression, personally reviewed Cardiology consulted, appreciate assistance Heparin drip without bolus per cardiology Serial troponins/EKGs 2. Nausea/vomiting/diarrhea/? Colitis CT of the abdomen/pelvis shows advancing pelvic soft tissue mass and bony metastatic disease involving the left hip. Induration along the ascending colon with bowel wall thickening that could be an early colitis. Increasing metastatic disease in both lungs. Zosyn Blood cultures pending 3. Urinary tract infection UA consistent with UTI Urine culture pending Antibiotics as above 4. Uterine cancer with metastatic disease Oncology consulted, Dr. Rose, appreciate assistance Dilaudid for pain 5. History of DVT Patient on Eliquis at home Heparin drip as above 6. Acute kidney injury BUN/creatinine 71/1.65 Suspect secondary to dehydration IV fluid hydration Monitor renal function 7. Transaminitis Likely drug-induced Monitor FEN N.p.o. Electrolytes: Monitor and replete as needed NS at 100 cc/hour Heparin drip
[2018-10-05] MEDS: Sod Chloride 0.9% Inj 1,000 ML IV.CONT SCH (21:13)
[2018-10-05] MEDS: HYDROmorphone PF Inj 2 MG/ML Vial IV.PUSH PRN (22:04)
[2018-10-05] MEDS: Piperacil/Tazo 3.375 GM Premix 50 ML IV.SIG SCH (22:04)
[2018-10-05 23:00] LABS: Chol/HDL Ratio 6.12 Ratio; HDL Cholesterol 29.9 mg/dL (40.0-60.0); Thyroid Stimulating Hormone 0.817 uIU/mL (0.358-3.740)
[2018-10-05 23:20] LABS: Troponin I 0.89 ng/mL (0.02-0.05)
[2018-10-06] MEDS: Piperacil/Tazo 3.375 GM Premix 50 ML IV.SIG SCH ×2 (03:38→08:54)
[2018-10-06] MEDS: HYDROmorphone PF Inj 2 MG/ML Vial IV.PUSH PRN ×3 (05:27→19:43)
[2018-10-06] MEDS: Sod Chloride 0.9% Inj 1,000 ML IV.CONT SCH (07:39)
[2018-10-06 08:26] LABS: Baso % (Auto) 0.2 % (0.0-2.0); Eos % (Auto) 2.1 % (0.0-4.0); Hematocrit 29.8 % (35.0-46.0); Lymph # (Auto) 0.2 th/mm3 (1.0-4.8); Lymph % (Auto) 8.9 % (9.0-44.0); Mean Corpuscular HGB Conc 33.5 % (32.0-36.0); Mean Corpuscular Hemoglobin 32.1 pg (27.0-34.0); Mean Corpuscular Volume 95.9 fL (80.0-100.0); Mean Platelet Volume 8.8 fL (7.0-11.0); Mono % (Auto) 1.1 % (0.0-8.0); Neut # (Auto) 1.7 th/mm3 (1.8-7.7); Neut % (Auto) 87.7 % (16.0-70.0); Platelet Count 66 th/mm3 (150-450); Red Blood Count 3.11 mil/mm3 (4.00-5.30); Red Cell Distribution Width 28.8 % (11.6-17.2); White Blood Count 1.9 th/mm3 (4.0-11.0)
[2018-10-06 08:31] LABS: Albumin 2.3 g/dL (3.4-5.0); Calcium 7.4 mg/dL (8.5-10.1); Carbon Dioxide 18.1 meq/L (21.0-32.0); Potassium 4.6 meq/L (3.5-5.1)
[2018-10-06 08:36] LABS: Total Protein 4.9 g/dL (6.4-8.2)
[2018-10-06 08:38] LABS: Troponin I 0.82 ng/mL (0.02-0.05)
[2018-10-06 08:53] LABS: Creatine Kinase MB 5.2 ng/mL (0.5-3.6)
[2018-10-06 09:40] LABS: Burr Cells 2+; Lymphocytes 12 % (9-44); Monocytes 2 % (0-8); Ovalocytes 1+; Tear Drop Cells 1+; Toxic Granulation 2+; Toxic Vacuolation Present
[2018-10-06] MEDS ORDERED: Aspirin 325 MG Tablet PO ONE (10:21)
--- NOTE | 2018-10-06 10:50 | P.PNIM ---
Subjective Interval history: Patient says she feels nauseous. She also complains of generalized weakness and feels dehydrated. No active chest pain. Physical Exam Vital signs: Vital Signs 10/05/18 14:33 10/05/18 16:03 10/05/18 16:52 Temperature 98.1 F 97.9 F Pulse Rate 120 H 104 H Respiratory Rate 18 17 20 Blood Pressure 147/89 H 137/86 Pulse Oximetry 95 97 10/05/18 18:13 10/05/18 19:18 10/05/18 22:40 Temperature 97.9 F Pulse Rate 107 H 106 H 104 H Respiratory Rate 15 18 19 Blood Pressure 129/88 135/88 113/80 Pulse Oximetry 96 95 94 L 10/06/18 07:38 10/06/18 09:00 Temperature Pulse Rate 115 H 117 H Respiratory Rate 18 20 Blood Pressure 121/83 122/84 Pulse Oximetry 98 98 Intake & Output 10/05/18 10/06/18 10/06/18 18:59 06:59 18:59 Intake Total 1000 / 1000 1400 / 1400 50 / 50 Balance 1000 / 1000 1400 / 1400 50 / 50 Weight 92.533 kg Intake: IV 1000 / 1000 1400 / 1400 50 / 50 NS Inj 1,000 ML @ 100 mls/hr IV 1000 / 1000 .CONT .Q10H [facility] Rx#:[id number] Cipro 400 MG/200 ML Inj 400 mg 200 / 200 In 200 ml @ 200 mls/hr IV.SIG ONCE ONE Rx#:[id number] Zosyn 3.375 GM Premix 50 ML @ 100 / 100 50 / 50 100 mls/hr IV.SIG Q6H [facility] Rx#: [id number] NS Inj 1,000 ML @ Wide Open IV. 1000 / 1000 SIG BOLUS ONE Rx#:[id number] Flagyl 500 MG Inj 100 ML @ 100 100 / 100 mls/hr IV.SIG ONCE ONE Rx#: [id number] Narrative: General patient without active chest pain. Patient says she feels nauseous. HEENT extraocular movements are intact Cardiovascular S1-S2 audible Respiratory clear to auscultation bilaterally Abdomen soft, normal bowel sounds Extremities no edema, 2+ distal pulses in bilateral upper and lower extremities Neuro no obvious neurological deficits. - Urinary Catheter Management Straight Cath placed during this visit: yes, but has since been removed by the nurse Reason for continuing: Decision to DC catheter Insertion date: 10/05/18 Insertion time: 16:45 Removal date: 10/05/18 Removal time: 16:46 Results - Labs CBC & Chem 7: 10/06/18 06:03 10/06/18 06:03 Laboratory Results - last 24 hr 10/05/18 10/05/18 10/05/18 16:00 16:00 16:00 WBC 5.3 RBC 3.33 L Hgb 10.6 L Hct 31.7 L MCV 95.1 MCH 31.7 MCHC 33.3 RDW 28.5 H Plt Count 129 L MPV 8.4 Prelim Diff (Auto) Slide review pending Neut % (Auto) 94.4 H Lymph % (Auto) 4.4 L [place] % (Auto) 0.4 Eos % (Auto) 0.6 Baso % (Auto) 0.2 Neut # (Auto) 5.0 Lymph # (Auto) 0.2 L [place] # (Auto) 0.0 Eos # (Auto) 0.0 Baso # (Auto) 0.0 WBC Differential Manual diff final Seg Neuts % (Manual) 94 H Band Neuts % (Manual) 2 Lymphocytes % (Manual) 1 L Monocytes % (Manual) 3 Abs Neuts (Manual) 5.1 Differential Comment . Toxic Granulation 1+ H Toxic Vacuolation Platelet Estimate Low L Platelet Morphology Normal Tear Drop Cells Ovalocytes 1+ H Nicolas Cells PT 11.2 INR 1.1 APTT 31.5 Sodium 140 Potassium 4.7 Chloride 109 H Carbon Dioxide 20.3 L Anion Gap 11 BUN 71 H Creatinine 1.65 H Estimated GFR 32 L Random Glucose 173 H Lactic Acid Calcium 7.8 L Calcium Adj for Albumin Magnesium 2.5 Total Bilirubin 4.6 H AST 443 H ALT 883 H Alkaline Phosphatase 246 H Total Creatine Kinase 297 H CK-MB (CK-2) 5.8 H CK-MB (CK-2) % 2.0 Troponin I 1.15 H* Total Protein 5.4 L Albumin 2.7 L Triglycerides Cholesterol LDL Cholesterol, Calc HDL Cholesterol Cholesterol/HDL Ratio Lipase 105 TSH Urine Color Urine Clarity Urine pH Ur Specific [place] Urine Protein Urine Glucose (UA) Urine Ketones Urine Occult Blood Urine Nitrate Urine Bilirubin Urine Urobilinogen Ur Leukocyte Esterase Urine RBC Urine WBC Ur Squamous Epith Cells Urine Bacteria Hyaline Casts Urine Mucus Micro UA Comment Ur Microscopic Review Urine Culture Comments 10/05/18 10/05/18 10/05/18 16:00 16:30 17:11 WBC RBC Hgb Hct MCV MCH MCHC RDW Plt Count MPV Prelim Diff (Auto) Neut % (Auto) Lymph % (Auto) [place] % (Auto) Eos % (Auto) Baso % (Auto) Neut # (Auto) Lymph # (Auto) [place] # (Auto) Eos # (Auto) Baso # (Auto) WBC Differential Seg Neuts % (Manual) Band Neuts % (Manual) Lymphocytes % (Manual) Monocytes % (Manual) Abs Neuts (Manual) Differential Comment Toxic Granulation Toxic Vacuolation Platelet Estimate Platelet Morphology Tear Drop Cells Ovalocytes Nicolas Cells PT INR APTT Sodium Potassium Chloride Carbon Dioxide Anion Gap BUN Creatinine Estimated GFR Random Glucose Lactic Acid 1.8 Calcium Calcium Adj for Albumin Magnesium Cancelled Total Bilirubin AST ALT Alkaline Phosphatase Total Creatine Kinase CK-MB (CK-2) CK-MB (CK-2) % Troponin I Total Protein Albumin Triglycerides Cholesterol LDL Cholesterol, Calc HDL Cholesterol Cholesterol/HDL Ratio Lipase TSH Urine Color Asha Urine Clarity Hazy H Urine pH 5.0 Ur Specific [place] 1.016 Urine Protein 100 H Urine Glucose (UA) Negative Urine Ketones Negative Urine Occult Blood Small H Urine Nitrate Negative Urine Bilirubin Negative Urine Urobilinogen 4 or greater Ur Leukocyte Esterase Negative Urine RBC 3 Urine WBC 21 H Ur Squamous Epith Cells 1 Urine Bacteria Few H Hyaline Casts 4 Urine Mucus Few H Micro UA Comment Cath-culture ind Ur Microscopic Review Not Reportable Urine Culture Comments Cath-cult indicated 10/05/18 10/06/18 10/06/18 22:18 02:39 06:03 WBC RBC Hgb Hct MCV MCH MCHC RDW Plt Count MPV Prelim Diff (Auto) Neut % (Auto) Lymph % (Auto) [place] % (Auto) Eos % (Auto) Baso % (Auto) Neut # (Auto) Lymph # (Auto) [place] # (Auto) Eos # (Auto) Baso # (Auto) WBC Differential Seg Neuts % (Manual) Band Neuts % (Manual) Lymphocytes % (Manual) Monocytes % (Manual) Abs Neuts (Manual) Differential Comment Toxic Granulation Toxic Vacuolation Platelet Estimate Platelet Morphology Tear Drop Cells Ovalocytes Nicolas Cells PT INR APTT 93.1 H* D Sodium 141 Potassium 4.6 Chloride 112 H Carbon Dioxide 18.1 L Anion Gap 11 BUN 71 H Creatinine 1.35 H Estimated GFR 41 L Random Glucose 150 H Lactic Acid Calcium 7.4 L* Calcium Adj for Albumin 8.6 Magnesium Total Bilirubin 4.7 H AST 304 H ALT 707 H Alkaline Phosphatase 197 H Total Creatine Kinase 248 H 256 H CK-MB (CK-2) 5.0 H 5.2 H CK-MB (CK-2) % 2.0 2.0 Troponin I 0.89 H* D 0.82 H* Total Protein 4.9 L Albumin 2.3 L Triglycerides 129 Cholesterol 183 LDL Cholesterol, Calc 127 H HDL Cholesterol 29.9 L Cholesterol/HDL Ratio 6.12 Lipase TSH 0.817 Urine Color Urine Clarity Urine pH Ur Specific [place] Urine Protein Urine Glucose (UA) Urine Ketones Urine Occult Blood Urine Nitrate Urine Bilirubin Urine Urobilinogen Ur Leukocyte Esterase Urine RBC Urine WBC Ur Squamous Epith Cells Urine Bacteria Hyaline Casts Urine Mucus Micro UA Comment Ur Microscopic Review Urine Culture Comments 10/06/18 10/06/18 10/06/18 06:03 07:30 09:13 WBC 1.9 L D RBC 3.11 L Hgb 10.0 L Hct 29.8 L MCV 95.9 MCH 32.1 MCHC 33.5 RDW 28.8 H Plt Count 66 L D MPV 8.8 Prelim Diff (Auto) Slide review pending Neut % (Auto) 87.7 H Lymph % (Auto) 8.9 L [place] % (Auto) 1.1 Eos % (Auto) 2.1 Baso % (Auto) 0.2 Neut # (Auto) 1.7 L Lymph # (Auto) 0.2 L [place] # (Auto) 0.0 Eos # (Auto) 0.0 Baso # (Auto) 0.0 WBC Differential Manual diff final Seg Neuts % (Manual) 82 H Band Neuts % (Manual) 4 Lymphocytes % (Manual) 12 Monocytes % (Manual) 2 Abs Neuts (Manual) 1.6 L Differential Comment . Toxic Granulation 2+ H Toxic Vacuolation Present H Platelet Estimate Low L Platelet Morphology Enlarged H Tear Drop Cells 1+ H Ovalocytes 1+ H [place] Cells 2+ H PT INR APTT 274.7 H* Greater than 277.5 H* Sodium Potassium Chloride Carbon Dioxide Anion Gap BUN Creatinine Estimated GFR Random Glucose Lactic Acid Calcium Calcium Adj for Albumin Magnesium Total Bilirubin AST ALT Alkaline Phosphatase Total Creatine Kinase CK-MB (CK-2) CK-MB (CK-2) % Troponin I Total Protein Albumin Triglycerides Cholesterol LDL Cholesterol, Calc HDL Cholesterol Cholesterol/HDL Ratio Lipase TSH Urine Color Urine Clarity Urine pH Ur Specific [place] Urine Protein Urine Glucose (UA) Urine Ketones Urine Occult Blood Urine Nitrate Urine Bilirubin Urine Urobilinogen Ur Leukocyte Esterase Urine RBC Urine WBC Ur Squamous Epith Cells Urine Bacteria Hyaline Casts Urine Mucus Micro UA Comment Ur Microscopic Review Urine Culture Comments - Imaging Impressions Abdomen/Pelvis CT 10/05/18 15:39 . CONCLUSION: 1. Significant deterioration in the appearance of the pelvis with advancing pelvic soft tissue mass and bony metastatic disease involving the left hip 2. Induration along the ascending colon with bowel wall thickening that could be an early colitis. 3. Increasing metastatic disease in both lungs Chest X-Ray 10/05/18 15:39 CONCLUSION: Scattered nodular densities bilaterally consistent with possible metastatic disease. Dedicated CT of the chest would be helpful for confirmation. Chest CT 10/05/18 16:46 CONCLUSION: 1. Widespread parenchymal metastatic disease without prior chest CT. 2. Significant deterioration from the PET scan of 05/22/2017. 3. No pleural effusion. Assessment and Plan - Plan This patient is a 53-year-old female with uterine cancer with metastasis to the bone and lungs, history of DVT on Eliquis who presented to the emergency part with complaints of nausea since Friday afternoon. The patient recently had chemotherapy on Friday and Friday prior to . Patient says she felt dehydrated and weak and then presented to the emergency department for evaluation. She also had left-sided chest pain that she described as pressure in nature without any radiation. 1. Non-ST segment elevation NH 2. Thrombocytopenia 3. History of DVT No active chest pain EKG shows normal sinus rhythm, no ST segment or T wave changes. Troponins were elevated at 1.1, now have showed a down trend. Patient says that she is allergic to aspirin which makes her feel severely nauseous and causes vomiting. She is currently on heparin drip. The patient is thrombocytopenic, likely secondary to recent chemotherapy. No signs of active bleeding. Currently the heparin drip has been held due to elevated PTT level. We will continue heparin drip as per protocol and closely monitor for bleeding. Cardiology following the patient, I will follow-up with the recommendations. You to monitor the patient on telemetry Beta-elaina also added to the patient's medication regimen 3. Acute kidney injury likely prerenal Patient had an elevated serum creatinine of 1.65 on admission, BUN elevated. After the initiation of IV fluids her serum creatinine has down trended to 1.35. Avoid nephrotoxic agents. Follow-up a.m. labs. 4. Uterine cancer with metastasis to the bone and lungs 5. Elevated LFTs Oncology consulted to evaluate the patient. CT imaging shows metastatic disease to the lungs and bone. Patient also has significantly elevated LFTs, no evidence of metastasis on abdominal imaging to the liver. LFTs slightly downtrending from yesterday. Follow-up a.m. labs. Continue IVF DVT prophylaxis, patient is currently on heparin drip.
[2018-10-06] MEDS: Sodium Chloride 0.45 % Inj 1,000 ML IV.CONT SCH ×2 (11:19→19:45)
--- NOTE | 2018-10-06 14:47 | MB ---
cc: Gautam Thakkar MD DATE: 10/06/2018 REASON FOR CONSULTATION: Abnormal cardiac enzymes, chest pain. HISTORY OF PRESENT ILLNESS: The patient is a 53-year-old white female with a history of metastatic uterine cancer, deep venous thrombosis, patent foramen ovale, who came to the hospital with complaints of chest discomfort, nausea, vomiting, diarrhea. Cardiac enzymes were checked and found to be slightly abnormal. The patient states for the past few weeks she has had intermittent episodes of left axillary chest discomfort described as "uncomfortable," never lasting more than a few minutes without associated shortness of breath, nausea, or diaphoresis. She denies pleurisy, dizziness, syncope, near syncope, palpitations, paroxysmal nocturnal dyspnea. Since starting chemotherapy, she has noted fairly constant right greater than left pedal edema. PAST MEDICAL HISTORY: 1. Metastatic (to the left hip, pelvis, lungs) uterine cancer, status post chemotherapy most recently at [facility]. 2. 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 3. Patent foramen ovale, apparently diagnosed 15 years ago. 4. Hypertension. PAST SURGICAL HISTORY: 1. Exploratory laparotomy, SANDEE/BSO 09/09/2016. 2. Appendectomy. CARDIAC MEDICATIONS AT HOME: 1. Furosemide 20 mg b.i.d. p.r.n. 2. Apixaban 5 mg b.i.d. cardiac medications. CARDIAC MEDICATIONS HERE IN THE HOSPITAL; 1. Heparin drip. 2. Metoprolol tartrate 12.5 mg p.o. b.i.d. 3. Nitroglycerin paste 1 inch every 6 hours. ALLERGIES: DOXORUBICIN AND CARISOPRODOL. FAMILY HISTORY: There is no definite family history of early myocardial infarction. Her father from lung cancer and her sister from leukemia. SOCIAL HISTORY: The patient is a former smoker. There is no history of drug or alcohol abuse. REVIEW OF SYSTEMS: As in the history of present illness, otherwise negative or noncontributory. She also denies headache, bright red blood per rectum, melena, dyspepsia, fevers. PHYSICAL EXAMINATION: VITAL SIGNS: Her blood pressure 110/76 with a pulse of 123, respirations 20. GENERAL: She is a well-developed, well-nourished white female, in no acute distress. NECK: Jugular venous pressure is hard to assess. Carotid pulses are 2+ bilaterally and without bruits. CHEST: Reveals clear lung mendoza anteriorly. CARDIAC: She had a tachycardic, regular rhythm without S3, S4, or murmur. ABDOMEN: She has a soft, nontender abdomen. Bowel sounds are present. There is no definite hepatosplenomegaly. EXTREMITIES: Reveal no clubbing or cyanosis. There may be 1+ pretibial edema bilaterally. LABORATORY DATA: Chest x-ray shows scattered nodular densities consistent with metastatic disease. EKG from 10/05/2018 at 9:14 p.m. shows sinus tachycardia, septal infarct, age undetermined, nonspecific ST and T-wave abnormalities. Laboratory data includes BUN 71, creatinine 1.35. Troponin 1.15. CK 297, with 2.0% MB fraction. AST 304, ALT 707, potassium 4.6. Total cholesterol 183, LDL 127, HDL 30, triglycerides 129. IMPRESSION: Overall, atypical chest pains, minimally abnormal troponin levels in this 53-year-old white female with a history of metastatic uterine cancer, right iliac deep venous thrombosis, possible history of patent foramen ovale. EKG shows overall nonspecific ST and T-wave changes. CK levels are negative for myocardial infarction. The troponin levels are only minimally elevated, this in the setting of renal insufficiency. The slight elevation in troponin may be due to tachycardia. She is likely dehydrated. There is no definite evidence for congestive heart failure. Echocardiogram report is pending. RECOMMENDATIONS: 1. Given her comorbid conditions, recommend conservative therapy from a cardiac standpoint. 2. Daily baby aspirin, change the nitrate to oral administration, continue the beta elaina. The heparin drip can be stopped and her apixaban resumed. 3. Will review her echocardiogram. MD RUBEN Zimmerman/rae , 02:11 PM , 02:20 PM ECTOR
--- NOTE | 2018-10-06 15:56 | ECG ---
Date Performed: 10/05/2018 Time Performed: 16:11:05 PTAGE: 53 years EKG: SINUS TACHYCARDIA LEFT VENTRICULAR HYPERTROPHY AND ST-T CHANGE POSSIBLE ANTERIOR MYOCARDIAL INFARCTION ABNORMAL ECG PREVIOUS TRACING : 09/04/2016 12.11 Compared to previous tracing, there is evidence of possible inferior anteroseptal Myocardial infarction. DOCTOR: Ursula Chavarria Interpretating Date/Time 10/06/2018 15:54:34
--- NOTE | 2018-10-06 15:56 | ECG ---
Date Performed: 10/05/2018 Time Performed: 21:14:25 PTAGE: 53 years EKG: SINUS TACHYCARDIA LEFT VENTRICULAR HYPERTROPHY AND ST-T CHANGE POSSIBLE ANTERIOR MYOCARDIAL INFARCTION ABNORMAL ECG PREVIOUS TRACING : 10/05/2018 16.11 Since the previous tracing, no significant change noted DOCTOR: Ursula Chavarria Interpretating Date/Time 10/06/2018 15:54:48
[2018-10-06] MEDS: Piperacil/Tazo 2.25 GM Premix 50 ML IV.SIG SCH ×2 (16:20→21:36)
--- NOTE | 2018-10-06 18:42 | ECHRPT ---
Indication: CHEST PAIN CONCLUSIONS The left ventricular systolic function is rfrzteor-[id number] reduced with an estimated ejection fra ction in the range of 35-40%. There is diffuse global hypokinesis with distinct regional wall motion abnormalities. There was limited left ventricular wall motion assessment due to poor endocardial visualization. Mildly dilated left ventricle. Wall thickness is normal. Trace mitral valve regurgitation. There is trace tricuspid valve regurgitation. The estimated pulmonary arterial pressure is 25.6 mmHg. There is a small pericardial effusion present. BP: / HR: Rhythm: Atrial fibrillation MEASUREMENTS (Male / Female) Normal Values Technical Quality:Very technically difficult study 2D ECHO LV Diastolic Diameter PLAX 5.5 cm 4.2 - 5.9 / 3.9 - 5.3 cm LV Systolic Diameter PLAX 4.7 cm IVS Diastolic Thickness 1.0 cm 0.6 - 1.0 / 0.6 - 0.9 cm LVPW Diastolic Thickness 1.0 cm 0.6 - 1.0 / 0.6 - 0.9 cm LV Relative Wall Thickness 0.4 LVOT Diameter 1.7 cm LV Ejection Fraction MOD 4C 34.8 % LV Ejection Fraction 4C AL 34.3 % M-MODE Aortic Root Diameter MM 2.1 cm LA Systolic Diameter MM 3.3 cm LA Ao Ratio MM 1.6 AV Cusp Separation MM 1.8 cm DOPPLER AV Peak Velocity 124.0 cm/s AV Peak Gradient 6.2 mmHg LVOT Peak Velocity 78.5 cm/s LVOT Peak Gradient 2.5 mmHg AV Area Cont Eq pk 1.4 cm MV Area PHT 6.1 cm LV E' Lateral Velocity 11.3 cm/s LV E' Septal Velocity 6.5 cm/s TR Peak Velocity 197.5 cm/s TR Peak Gradient 15.6 mmHg Right Atrial Pressure 10.0 mmHg Pulmonary Artery Systolic Pressu 25.6 mmHg Right Ventricular Systolic Press 25.6 mmHg PV Peak Velocity 65.2 cm/s PV Peak Gradient 1.7 mmHg FINDINGS LEFT VENTRICLE The left ventricular systolic function is kzbbxaso-rr-uewcvzl reduced with an estimated ejection fra ction in the range of 35-40%. There is diffuse global hypokinesis with distinct regional wall motion abnormalities. There was limited left ventricular wall motion assessment due to poor endocardial visualization. Mildly dilated left ventricle. Wall thickness is normal. RIGHT VENTRICLE Normal right ventricular size and systolic function. LEFT ATRIUM The left atrial size is normal. RIGHT ATRIUM The right atrial size is normal. ATRIAL SEPTUM Normal atrial septal thickness without atrial level shunting by limited color doppler interrogation. AORTA The aortic root and proximal ascending aorta are normal in size on limited imaging. MITRAL VALVE Structurally normal mitral valve. Trace mitral valve regurgitation. AORTIC VALVE The aortic valve is not well visualized. No aortic valve stenosis or regurgitation. TRICUSPID VALVE Structurally normal tricuspid valve. There is trace tricuspid valve regurgitation. The estimated pulmonary arterial pressure is 25.6 mmHg. PULMONARY VALVE No pulmonary valve regurgitation or stenosis. VESSELS The inferior vena cava is normal in size. PERICARDIUM There is a small pericardial effusion present. Oscar Schroeder (Electronically Signed) Final Date:06 October 2018 18:41
[2018-10-06] MEDS: Metoprolol Tartrate 25 MG Tablet PO SCH (21:36)
[2018-10-07] MEDS: HYDROmorphone PF Inj 2 MG/ML Vial IV.PUSH PRN ×4 (00:03→11:37)
[2018-10-07] MEDS: Piperacil/Tazo 2.25 GM Premix 50 ML IV.SIG SCH ×4 (04:49→18:06)
[2018-10-07] MEDS: Sodium Chloride 0.45 % Inj 1,000 ML IV.CONT SCH ×3 (04:59→21:12)
[2018-10-07] MEDS: Isosorbide Mononitrate 60 MG ER 24HR Tablet (Imdur) PO SCH (06:11)
[2018-10-07 07:05] LABS: Hematocrit 25.3 % (35.0-46.0); Hemoglobin 8.6 gm/dL (11.6-15.3); Mean Corpuscular HGB Conc 34.1 % (32.0-36.0); Mean Corpuscular Hemoglobin 32.3 pg (27.0-34.0); Mean Corpuscular Volume 94.7 fL (80.0-100.0); Mean Platelet Volume 9.1 fL (7.0-11.0); Platelet Count 28 th/mm3 (150-450); Red Blood Count 2.67 mil/mm3 (4.00-5.30); Red Cell Distribution Width 28.7 % (11.6-17.2); White Blood Count 0.6 th/mm3 (4.0-11.0)
[2018-10-07 07:51] LABS: Albumin 2.2 g/dL (3.4-5.0); Calcium 6.9 mg/dL (8.5-10.1); Carbon Dioxide 17.6 meq/L (21.0-32.0); Magnesium 2.6 mg/dL (1.5-2.5); Potassium 4.3 meq/L (3.5-5.1); Total Protein 4.7 g/dL (6.4-8.2)
[2018-10-07] MEDS: Metoprolol Tartrate 25 MG Tablet PO SCH ×2 (08:07→21:12)
[2018-10-07 08:08] LABS: Lymphocytes 49 % (9-44); Monocytes 4 % (0-8); Myelocytes 1 % (0-0); Platelet Morphology Normal (Normal); Tallied Nucleated RBC 1 (0-0)
[2018-10-07 08:09] LABS: Acanthocytes Occ; Burr Cells 1+
--- NOTE | 2018-10-07 10:15 | MB ---
cc: Devora Saleem MD,Chasity Swartz,Chandrika Cabrera,Munira Tijerina Dr. DATE: 10/07/2018 PHYSICIANS REQUESTING CONSULT: Munira Cabrera MD and Dr. Tijerina REASON FOR CONSULTATION: Recurrent metastatic uterine sarcoma REASON FOR ADMISSION: Nausea, vomiting, diarrhea, dehydration, failure to thrive. HISTORY OF PRESENT ILLNESS: A 53-year-old female who was diagnosed with uterine sarcoma; underwent surgery, enlarged uterus removal, hysterectomy, bilateral salpingo-oophorectomy, as well as resection of disease confirmed in the omentum. Had surgery approximately 2 years ago. She has had 6 cycles of gemcitabine and Taxotere and did well until early 2007 when recurrent progressive disease was confirmed in the right hip and pelvis. She had pelvic radiation. She has also been evaluated and treated for a significant deep vein thrombosis. Liposomal doxorubicin was started after that, but she had an infusion reaction, so was changed to Taxotere x3 cycles. Disease progression in May 2018 warranted further evaluation and change in treatment. She saw a sarcoma specialist at [facility], where she was started on doxorubicin and olaratumab. Treatment had significant side effects and followup imaging showed progression of disease. So she has been most recently started on 24-hour infusion of trabectedin (yondelis), of which she has now received 2 cycles. Her most recent treatment was on the 24-hour period, the day before and soon thereafter, she had nausea with occasional emesis, decreased appetite, decreased oral intake, diarrhea. She was given some fluids [facility] with a bag of multivitamins that minimally improved her symptoms, but as she felt poorly, she presented to the emergency room where she is now admitted for further evaluation and management. She is seen now and reports that she is feeling somewhat improved since admission. It seems as though her urine output is improving, although she has problems voiding. Prior imaging has suggested tumor in the region of or within the bladder itself, which may be contributing to some obstructive uropathy. She has been requiring periodic in-and-out catheterization during this hospitalization. She is seen now in consultation for further evaluation and recommendations regarding these findings. PAST MEDICAL HISTORY: Notable for the recurrent uterine sarcoma as outlined above. She has had a patent foramen ovale. She has an extensive lower extremity DVT extending into the inferior vena cava. She has a history of migraine headaches. PAST SURGICAL HISTORY: Hysterectomy with staging as above. She has had an inferior vena cava filter placed. She has had cholecystectomy, appendectomy, venous access port placement. 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 ALLERGIES: INCLUDE INFUSION REACTION TO LIPOSOMAL DOXORUBICIN AND INTOLERANCE OF SOMA. CURRENT MEDICATIONS: As outlined in chart. She sees a painter structural steel on an ongoing outpatient basis. She reports good pain control with her current inpatient regimen, which includes oxycodone 10 mg, fentanyl patch every 72 hours. She is on enoxaparin. She has been an inhalation form of cannabis and various vitamins and mineral supplements. FAMILY HISTORY: She has a very caring and supportive family. No known family history of malignancy. REVIEW OF SYSTEMS: As per history of present illness; has not had any vaginal bleeding, has not had any bright red blood or melanotic stool changes. No hematuria reported; no easy bruising, bleeding, or any other source of bleeding. She does not believe she has been febrile recently. No one else in the family has been sick. LABORATORY DATA: Most recent labs show her to be trending towards neutropenia with a total white count of 0.6, H and H of 8.6 and 25.3, platelet count 28,000; this is all likely represents reaction to recent chemotherapy. Absolute neutrophil count of 0.3. PTT is 58.8, BUN and creatinine 72 and 1.4. Liver function tests and bilirubin are elevated; total bilirubin 4.5, alkaline phosphatase 155, ALT 214, AST 217. She also had some elevated cardiac enzymes initially. She has been seen by Dr. Thakkar in cardiology who recommended a baby aspirin daily without aggressive intervention; felt that the troponin elevations could potentially be related to dehydration and tachycardia at least in part without significant new ischemic changes. Troponin most recently 0.82. Blood cultures were positive for Escherichia coli. Urine cultures preliminarily no growth. PHYSICAL EXAMINATION VITAL SIGNS: She is afebrile; recent pulse ranging from 99-115, respirations 16-20, blood pressure 111-120/77-78, O2 saturations 99%. GENERAL/HEENT: She is alert and oriented x3; strabismus and left eye seems more pronounced than previously noted. She has reported some blurred vision that is improved. Mucous membranes are dry. She is currently comfortable, in no acute distress. ABDOMEN: Nonacute without rebound or guarding. Time was spent in discussion with Elizabeth Pitts and her , who joined us via speaker phone. I am sorry she is feeling poorly. She reports that she cannot think of anything that she needs at the present time as she is getting attentive care, her pain is well controlled. Her hydration status is improving. She is scheduled for followup imaging and reevaluation by the sarcoma team at [facility] on 10/16/2017. We hope that she has a productive and encouraging visit with them. Time was spent answering questions to the best of my capacity. They were grateful for the care provided and we prayed together at her request, and she understands that we are available to assist in any way possible. She is grateful for the excellent care she is receiving and from an oncology standpoint, no change in treatment recommendations. However, given that she is now pancytopenic from chemotherapy, neutropenic precaution should be undertaken and I suspect she will continue to feel poorly to some extent due to the pancytopenia until her neutropenia resolves. It may be worth considering transfusion at some point to keep her hemoglobin above 10 given that she has additional treatment required. IMPRESSION: 1. Recurrent metastatic uterine sarcoma, extensive DVT. 2. Admitted for nausea, vomiting, dehydration, diarrhea, failure to thrive, chest pain 3. Recent chemotherapy infusion on the day before . 4. Pancytopenia including neutropenia 5. Blood culture (+) for E. coli 5. Extensive discussion. PLAN: 1. Initiate neutropenic precautions. 2. Continue hydration and correction of electrolytes, supportive care, aspirin, continue eliquis 3. Continue broad-spectrum antibiotic coverage. 4. Anticipate re-evaluation and follow-up with the sarcoma team at [facility] on 10/16/2018. Thank you for the consultation. We will follow along in her care. MD JULIO Kennedy/pedro , 08:53 AM , 09:14 AM ECTOR
--- NOTE | 2018-10-07 10:21 | P.PNCA ---
Subjective Interval history: Feeling better today. No CP, dyspnea, PND, dizziness. Mild nausea earlier, none now. Slept some. Medications and Allergies Active Medications: Active Medications Aspirin (Ecotrin) 81 mg PO DAILY [facility] Last Admin: 10/07/18 08:06 Dose: 81 mg Hydromorphone HCl (Dilaudid Pf Inj) 1 mg IV.PUSH Q3H PRN PRN Reason: pain 6-10 Last Admin: 10/07/18 08:04 Dose: 1 mg Heparin Sodium/Dextrose (Heparin/D5w 25,000 U/250 Ml) 25,000 unit in 250 mls @ 0 mls/hr IV.CONT TITRATE PRN; Protocol PRN Reason: Per Protocol Last Titration: 10/06/18 13:35 Dose: 600 units/hr, 6 mls/hr Sodium Chloride (1/2 Normal Saline Inj) 1,000 mls @ 100 mls/hr IV.CONT .Q10H [facility] Last Admin: 10/07/18 08:07 Dose: 100 mls/hr Piperacillin/Tazobactam/Dextrose (Zosyn 2.25 Gm Premix) 50 mls @ 100 mls/hr IV.SIG Q6H [facility] Last Admin: 10/07/18 10:14 Dose: 100 mls/hr Isosorbide Mononitrate (Imdur) 60 mg PO DAILY@0700 [facility] Last Admin: 10/07/18 06:11 Dose: 60 mg Metoprolol Tartrate (Lopressor) 12.5 mg PO BID [facility] Last Admin: 10/07/18 08:07 Dose: 12.5 mg Miscellaneous (Pill Splitter) 1 each OTHER UNSCH PRN PRN Reason: SEE LABEL COMMENTS Prochlorperazine Edisylate (Compazine Inj) 10 mg IV.PUSH Q6H PRN PRN Reason: Nausea And Vomiting Last Admin: 10/06/18 19:14 Dose: 10 mg Sodium Chloride (Ns Flush) 2 ml IV.FLUSH PRN PRN PRN Reason: FLUSH AFTER USING IV ACCESS Last Admin: 10/05/18 16:03 Dose: 2 ml Sodium Chloride (Ns Inj) 2 ml IV.FLUSH BID [facility] Last Admin: 10/07/18 10:14 Dose: 2 ml Sodium Chloride (Ns Inj) 2 ml IV.FLUSH UNSCH PRN PRN Reason: FLUSH AFTER USING IV ACCESS Allergies Allergy/AdvReac Type Severity Reaction Status Date / Time carisoprodol Allergy Severe HYPOTENSION Verified 10/05/18 15:24 doxorubicin Allergy Severe BP Verified 10/05/18 15:24 DROPPED;RED FACE;BACK SWELLING Home Medications Medication Instructions Recorded Confirmed Type apixaban [Eliquis] 5 mg PO BID 05/25/18 10/05/18 History docusate sodium [Colace] 100 mg PO BID 05/25/18 10/05/18 History furosemide [Lasix] 20 mg PO BID PRN 05/25/18 10/05/18 History metoclopramide HCl 10 mg PO TID 05/25/18 10/05/18 History ondansetron HCl [Zofran] 8 mg PO TID PRN 05/25/18 10/05/18 History oxycodone 10 mg PO Q4-6H PRN 05/25/18 10/05/18 History Physical Exam Vital signs: Vital Signs 10/06/18 11:00 10/06/18 12:05 10/06/18 15:05 Temperature Pulse Rate 126 H 123 H 127 H Respiratory Rate 26 H 20 23 Blood Pressure 115/75 111/76 101/67 Pulse Oximetry 99 99 100 10/06/18 17:41 10/06/18 18:00 10/06/18 20:00 Temperature 97.1 F L 97.6 F Pulse Rate 100 H 114 H 117 H Respiratory Rate 18 16 Blood Pressure 118/80 120/60 Pulse Oximetry 100 95 10/07/18 00:00 10/07/18 04:00 10/07/18 08:03 Temperature 97.7 F 97.8 F 97.5 F L Pulse Rate 99 H 104 H 115 H Respiratory Rate 16 16 20 Blood Pressure 113/78 120/78 111/77 Pulse Oximetry 100 100 99 Intake & Output 10/06/18 10/07/18 10/07/18 18:59 06:59 18:59 Intake Total 500 / 500 2100 / 2100 1000 / 1000 Output Total 700 / 700 Balance 500 / 500 1400 / 1400 1000 / 1000 Weight 100 kg Intake: IV 500 / 500 2099 / 2100 1000 / 1000 NS Inj 1,000 ML @ 100 mls/hr IV 400 / 400 .CONT .Q10H [facility] Rx#:[id number] 1/2 Normal Saline Inj 1,000 ML 2000 / 2000 1000 / 1000 @ 100 mls/hr IV.CONT .Q10H [facility] Rx#:[id number] Zosyn 2.25 GM Premix 50 ML @ 50 / 50 100 / 100 100 mls/hr IV.SIG Q6H [facility] Rx#: [id number] Zosyn 3.375 GM Premix 50 ML @ 50 / 50 100 mls/hr IV.SIG Q6H [facility] Rx#: [id number] Output: Urine 100 / 100 Urine Amount (Catheter) 600 / 600 Straight 600 / 600 Other: Date of Last Bowel Movement 10/03/18 - Constitutional no acute distress - Routine Respiratory Exam Comments: Lungs clear anteriorly. - Routine Cardiovascular Exam Present: RRR, S1, S2. Absent: murmur, gallop - Routine Abdominal Exam Present: soft, normoactive bowel sounds. Absent: tenderness, organomegaly - Routine Extremities Exam Absent: cyanosis, clubbing, edema - Urinary Catheter Management Straight Cath placed during this visit: yes, but has since been removed by the nurse Reason for continuing: Not indwelling catheter Insertion date: 10/06/18 Insertion time: 23:00 Removal date: 10/05/18 Removal time: 04:30 Results 10/07/18 04:50 10/07/18 04:50 Cardiac Enzymes 10/05/18 10/05/18 10/06/18 Range/Units 16:00 22:18 06:03 AST 443 H 304 H (15-37) U/L CK-MB (CK-2) 5.8 H 5.0 H 5.2 H (0.5-3.6) ng/mL Troponin I 1.15 H* 0.89 H* D 0.82 H* (0.02-0.05) ng/mL 10/07/18 Range/Units 04:50 AST 217 H (15-37) U/L CK-MB (CK-2) (0.5-3.6) ng/mL Troponin I (0.02-0.05) ng/mL Coagulation 10/05/18 10/06/18 10/06/18 Range/Units 16:00 02:39 07:30 PT 11.2 (9.8-11.6) sec APTT 31.5 93.1 H* D 274.7 H* (23.4-31.7) sec 10/06/18 10/06/18 10/06/18 Range/Units 09:13 11:08 12:58 PT (9.8-11.6) sec APTT Greater than 277.5 H* 38.6 H D 30.1 D (23.4-31.7) sec 10/06/18 10/07/18 10/07/18 Range/Units 18:14 00:07 06:10 PT (9.8-11.6) sec APTT 51.1 H D 62.8 H D 58.8 H (23.4-31.7) sec Lipids 10/05/18 Range/Units 22:18 Triglycerides 129 (42-150) mg/dL Cholesterol 183 (120-200) mg/dL HDL Cholesterol 29.9 L (40.0-60.0) mg/dL Cholesterol/HDL Ratio 6.12 Ratio CBC 10/05/18 10/06/18 10/07/18 Range/Units 16:00 06:03 04:50 WBC 5.3 1.9 L D 0.6 L D (4.0-11.0) th/mm3 RBC 3.33 L 3.11 L 2.67 L (4.00-5.30) mil/mm3 Hgb 10.6 L 10.0 L 8.6 L (11.6-15.3) gm/dL Hct 31.7 L 29.8 L 25.3 L (35.0-46.0) % Plt Count 129 L 66 L D 28 L D (150-450) th/mm3 Neut # (Auto) 5.0 1.7 L (1.8-7.7) th/mm3 Lymph # (Auto) 0.2 L 0.2 L (1.0-4.8) th/mm3 [place] # (Auto) 0.0 0.0 (0.0-0.9) th/mm3 Eos # (Auto) 0.0 0.0 (0.0-0.4) th/mm3 Baso # (Auto) 0.0 0.0 (0.0-0.2) th/mm3 Comprehensive Metabolic Panel 10/05/18 10/06/18 10/07/18 Range/Units 16:00 06:03 04:50 Sodium 140 141 139 (136-145) meq/L Potassium 4.7 4.6 4.3 (3.5-5.1) meq/L Chloride 109 H 112 H 111 H (98-107) meq/L Carbon Dioxide 20.3 L 18.1 L 17.6 L (21.0-32.0) meq/L BUN 71 H 71 H 72 H (7-18) mg/dL Creatinine 1.65 H 1.35 H 1.40 H (0.50-1.00) mg/dL Calcium 7.8 L 7.4 L* 6.9 L* (8.5-10.1) mg/dL AST 443 H 304 H 217 H (15-37) U/L ALT 883 H 707 H 514 H (10-53) U/L Alkaline Phosphatase 246 H 197 H 155 H (45-117) U/L Total Protein 5.4 L 4.9 L 4.7 L (6.4-8.2) g/dL Albumin 2.7 L 2.3 L 2.2 L (3.4-5.0) g/dL Intake and Output 10/06/18 10/07/18 10/07/18 22:59 06:59 14:59 Intake Total 1050 / 1050 1100 / 1100 1000 / 1000 Output Total 700 / 700 Balance 1050 / 1050 400 / 400 1000 / 1000 Intake: IV 1050 / 1050 1100 / 1100 1000 / 1000 1/2 Normal Saline Inj 1,000 ML 1000 / 1000 1000 / 1000 1000 / 1000 @ 100 mls/hr IV.CONT .Q10H [facility] Rx#:[id number] Zosyn 2.25 GM Premix 50 ML @ 50 / 50 100 / 100 100 mls/hr IV.SIG Q6H [facility] Rx#: [id number] Output: Urine 100 / 100 Urine Amount (Catheter) 600 / 600 Straight 600 / 600 Other: Date of Last Bowel Movement 10/03/18 Weight 100 kg - Imaging and Cardiology Imaging: Impressions Abdomen/Pelvis CT 10/05/18 15:39 . CONCLUSION: 1. Significant deterioration in the appearance of the pelvis with advancing pelvic soft tissue mass and bony metastatic disease involving the left hip 2. Induration along the ascending colon with bowel wall thickening that could be an early colitis. 3. Increasing metastatic disease in both lungs Chest X-Ray 10/05/18 15:39 CONCLUSION: Scattered nodular densities bilaterally consistent with possible metastatic disease. Dedicated CT of the chest would be helpful for confirmation. Chest CT 10/05/18 16:46 CONCLUSION: 1. Widespread parenchymal metastatic disease without prior chest CT. 2. Significant deterioration from the PET scan of 05/22/2017. 3. No pleural effusion. Assessment and Plan - Assessment (1) Non-ST elevation (NSTEMI) myocardial infarction Code(s): I21.4 - Non-ST elevation (NSTEMI) myocardial infarction Status: Acute Plan: Stable overnight. No further atypical CP. Echo technically very difficult, suggests EF around 35%, suspect more due to non-ischemic etiology. Recommend conservative medical therapy of possible CAD with aspirin, beta elaina, oral nitrate, PK-I. Will f/u as needed. (2) Cardiomyopathy Code(s): I42.9 - Cardiomyopathy, unspecified Status: Acute Plan: Echo yesterday technically very very difficult, suggests EF around 35%. Suspect etiology more non-ischemic. Recommend beta elaian, PK-I. - Plan Code Status: full Discussed Condition With: patient (2) Cardiomyopathy Qualifiers: Cardiomyopathy type: unspecified Qualified Code(s): I42.9 - Cardiomyopathy, unspecified
--- NOTE | 2018-10-07 12:41 | ECG ---
Date Performed: 10/06/2018 Time Performed: 13:34:29 PTAGE: 53 years EKG: Sinus rhythm LEFT VENTRICULAR HYPERTROPHY AND ST-T CHANGE POSSIBLE SEPTAL MYOCARDIAL INFARCTION ABNORMAL ECG PREVIOUS TRACING : 10/05/2018 21.14 DOCTOR: Maldonado Lai Interpretating Date/Time 10/07/2018 12:39:48
--- NOTE | 2018-10-07 13:28 | P.PN ---
Subjective Interval history: telemetry- in SR awake and alert pain all voer - most in the right hip and groin area no further nausea - - will start eating west in place Physical Exam Vital signs: Vital Signs 10/06/18 15:05 10/06/18 17:41 10/06/18 18:00 Temperature 97.1 F L Pulse Rate 127 H 100 H 114 H Respiratory Rate 23 18 Blood Pressure 101/67 118/80 Pulse Oximetry 100 100 10/06/18 20:00 10/07/18 00:00 10/07/18 04:00 Temperature 97.6 F 97.7 F 97.8 F Pulse Rate 117 H 99 H 104 H Respiratory Rate 16 16 16 Blood Pressure 120/60 113/78 120/78 Pulse Oximetry 95 100 100 10/07/18 08:00 10/07/18 08:03 10/07/18 12:00 Temperature 97.5 F L 97.8 F Pulse Rate 108 H 115 H 106 H Respiratory Rate 20 16 Blood Pressure 111/77 106/75 Pulse Oximetry 99 98 10/07/18 12:51 Temperature Pulse Rate Respiratory Rate 16 Blood Pressure Pulse Oximetry Intake & Output 10/06/18 10/07/18 10/07/18 18:59 06:59 18:59 Intake Total 500 / 500 2100 / 2100 1300 / 1300 Output Total 700 / 700 Balance 500 / 500 1400 / 1400 1300 / 1300 Weight 100 kg Intake: IV 500 / 500 2100 / 2100 1300 / 1300 Heparin/D5W 25,000 U/250 mL 25, 250 / 250 000 unit In 250 ml @ Per Protocol IV.CONT TITRATE PRN Rx #:[id number] NS Inj 1,000 ML @ 100 mls/hr IV 400 / 400 .CONT .Q10H [facility] Rx#:[id number] 1/2 Normal Saline Inj 1,000 ML 2000 / 2000 1000 / 1000 @ 100 mls/hr IV.CONT .Q10H [facility] Rx#:[id number] Zosyn 2.25 GM Premix 50 ML @ 50 / 50 100 / 100 50 / 50 100 mls/hr IV.SIG Q6H [facility] Rx#: [id number] Zosyn 3.375 GM Premix 50 ML @ 50 / 50 100 mls/hr IV.SIG Q6H [facility] Rx#: [id number] Output: Urine 100 / 100 Urine Amount (Catheter) 600 / 600 Straight 600 / 600 Other: Date of Last Bowel Movement 10/03/18 Narrative: awake and alert, oriented x 3, interactive, speech clear anicteric regular rhythm no rales, no wheezes, decreased breath sounds Abdomen soft, normal bowel sounds Right LE- + swelling Neuro no obvious neurological deficits.- moves all extremities spontaenously - Urinary Catheter Management Straight Cath placed during this visit: yes, but has since been removed by the nurse Reason for continuing: Acute urinary retention Insertion date: 10/07/18 Insertion time: 12:02 Removal date: 10/05/18 Removal time: 04:30 Indwelling Urethral Catheter Cath placed during this visit: no Results - Labs CBC & Chem 7: 10/09/18 04:00 10/09/18 04:00 Laboratory Results - last 24 hr 10/06/18 10/07/18 10/07/18 18:14 00:07 04:50 WBC RBC Hgb Hct MCV MCH MCHC RDW Plt Count MPV Prelim Diff (Auto) WBC Differential Seg Neuts % (Manual) Band Neuts % (Manual) Lymphocytes % (Manual) Monocytes % (Manual) Myelocytes % (Man) Abs Neuts (Manual) Nucleated RBCs/100 WBC Differential Comment Platelet Estimate Platelet Morphology Nicolas Cells Acanthocytes (Spur) APTT 51.1 H D 62.8 H D Sodium 139 Potassium 4.3 Chloride 111 H Carbon Dioxide 17.6 L Anion Gap 10 BUN 72 H Creatinine 1.40 H Estimated GFR 39 L Random Glucose 126 H Calcium 6.9 L* Calcium Adj for Albumin 8.2 L Magnesium 2.6 H Total Bilirubin 4.5 H AST 217 H ALT 514 H Alkaline Phosphatase 155 H Total Protein 4.7 L Albumin 2.2 L 10/07/18 10/07/18 04:50 06:10 WBC 0.6 L D RBC 2.67 L Hgb 8.6 L Hct 25.3 L MCV 94.7 MCH 32.3 MCHC 34.1 RDW 28.7 H Plt Count 28 L D MPV 9.1 Prelim Diff (Auto) Manual diff required WBC Differential Manual diff final Seg Neuts % (Manual) 42 Band Neuts % (Manual) 4 Lymphocytes % (Manual) 49 H Monocytes % (Manual) 4 Myelocytes % (Man) 1 H Abs Neuts (Manual) 0.3 L* Nucleated RBCs/100 WBC 1 H Differential Comment . Platelet Estimate Low L Platelet Morphology Normal [place] Cells 1+ H Acanthocytes (Spur) Occ H APTT 58.8 H Sodium Potassium Chloride Carbon Dioxide Anion Gap BUN Creatinine Estimated GFR Random Glucose Calcium Calcium Adj for Albumin Magnesium Total Bilirubin AST ALT Alkaline Phosphatase Total Protein Albumin Microbiology 10/05/18 16:30 Catheterized Urine Urine Culture - Final No growth in 48 hours 10/05/18 17:11 Blood - Peripheral Aerobic Blood Culture - Preliminary No growth in 2 days 10/05/18 17:11 Blood - Peripheral Anaerobic Blood Culture - Preliminary Escherichia coli 10/05/18 17:00 Blood - Peripheral Aerobic Blood Culture - Preliminary No growth in 2 days 10/05/18 17:00 Blood - Peripheral Anaerobic Blood Culture - Preliminary No growth in 2 days Assessment and Plan - Plan This patient is a 53-year-old female with 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 The patient recently had chemotherapy on Friday and Friday prior to . Patient says she felt dehydrated and weak and then presented to the emergency department for evaluation. She also had left-sided chest pain that she described as pressure in nature without any radiation. 1. Non-ST segment elevation FL, cardiomyopathy 2. Thrombocytopenia 3. History of DVT s/p IVC filter No active chest pain EKG shows normal sinus rhythm, no ST segment or T wave changes. Troponins were elevated at 1.1, now have showed a down trend. Patient says that she is allergic to aspirin which makes her feel severely nauseous and causes vomiting. The patient is thrombocytopenic, likely secondary to recent chemotherapy. No signs of active bleeding. Currently the heparin drip has been held due to elevated PTT level. We will continue heparin drip as per protocol and closely monitor for bleeding EF technically difficult- aroujd 35%- suspect due to non ischemi cetiology CArdiology ff - recommends conserative management with ASA. BB, oral nitrate and PK Eliquis 5 mg po bid 3. Acute kidney injury likely prerenal Acute urinary retention Patient had an elevated serum creatinine of 1.65 on admission, BUN elevated. After the initiation of IV fluids her serum creatinine has down trended to 1.35. Avoid nephrotoxic agents. Follow-up a.m. labs. west catheter placed - today 10/07- got 200 cc out yesterday straight cath last evening 600 cc, after no voiding/output for 6 hours decreased IVF rate to 60- cc/hr with low EF 4. Uterine cancer with metastasis to the bone and lungs 5. Elevated LFTs-- multifactorial from mets, likelwith chronic passive congestion from cardiomyopathy trending down Oncology ff CT imaging shows metastatic disease to the lungs and bone. Patient also has significantly elevated LFTs, no evidence of metastasis on abdominal imaging to the liver. LFTs slightly downtrending Follow-up a.m. labs. Continue IVF- decrease rate 6. E coli sepsis setting of pancytopenia UTI - continue on zosyn - ID consult for recommendations DVT prophylaxis, patient is currently on eliquis
--- NOTE | 2018-10-07 19:47 | P.CONID ---
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 NO fever on presentation Pt also has extensive b/l DVT and co LLE swelling , pain Review of Systems All other systems reviewed negative except as stated in HPI PMFSH - History History Provided By: Patient, Family Member, Medical Record - Medical History Medical History: Medical History (Last Reviewed 10/08/18 @ 01:33 by Teri Elise MD) Cancer of uterus H/O: hysterectomy History of DVT (deep vein thrombosis) Port-A-Cath in place Presence of IVC filter Primary cancer of uterus with metastasis to other site - Surgical History Surgical History: Surgical History (Last Reviewed 10/08/18 @ 01:33 by Teri Elise MD) Hx of appendectomy - Family History Family History: Family History (Last Reviewed 10/08/18 @ 01:33 by Teri Elise MD) Other Coronary artery disease Diabetes mellitus - Social History I have reviewed the patient's Social History: Yes - Tobacco History Second Hand Smoke Exposure: No Tobacco Use In Past 30 Days: No Smoking Status: Former smoker Tobacco Type: Cigarettes - Alcohol History How Often Do You Have a Drink Containing Alcohol: Never - Substance Use History Substance History: No History of Abuse - Travel History Recent Travel in the [place] Within the Last 8 Weeks: No Recent Travel Out of the Country Within the Last 8 Weeks: No - Immunization History Tetanus Immunization: >5 Years Medications and Allergies Active Medications: Active Medications Apixaban (Eliquis) 5 mg PO BID ANKUR Aspirin (Ecotrin) 81 mg PO DAILY [facility] Last Admin: 10/07/18 08:06 Dose: 81 mg Enalapril Maleate (Vasotec) 2.5 mg PO DAILY ANKUR Hydromorphone HCl (Dilaudid Pf Inj) 1 mg IV.PUSH Q3H PRN PRN Reason: pain 6-10 Last Admin: 10/07/18 11:37 Dose: 1 mg Sodium Chloride (1/2 Normal Saline Inj) 1,000 mls @ 100 mls/hr IV.CONT .Q10H [facility] Last Admin: 10/07/18 08:07 Dose: 100 mls/hr Piperacillin/Tazobactam/Dextrose (Zosyn 2.25 Gm Premix) 50 mls @ 100 mls/hr IV.SIG Q6H [facility] Last Admin: 10/07/18 18:06 Dose: 100 mls/hr Isosorbide Mononitrate (Imdur) 60 mg PO DAILY@0700 [facility] Last Admin: 10/07/18 06:11 Dose: 60 mg Metoprolol Tartrate (Lopressor) 12.5 mg PO BID [facility] Last Admin: 10/07/18 08:07 Dose: 12.5 mg Miscellaneous (Pill Splitter) 1 each OTHER UNSCH PRN PRN Reason: SEE LABEL COMMENTS Prochlorperazine Edisylate (Compazine Inj) 10 mg IV.PUSH Q6H PRN PRN Reason: Nausea And Vomiting Last Admin: 10/06/18 19:14 Dose: 10 mg Sodium Chloride (Ns Inj) 2 ml IV.FLUSH BID [facility] Last Admin: 10/07/18 10:14 Dose: 2 ml Sodium Chloride (Ns Inj) 2 ml IV.FLUSH UNSCH PRN PRN Reason: FLUSH AFTER USING IV ACCESS Allergies Allergy/AdvReac Type Severity Reaction Status Date / Time carisoprodol Allergy Severe HYPOTENSION Verified 10/05/18 15:24 doxorubicin Allergy Severe BP Verified 10/05/18 15:24 DROPPED;RED FACE;BACK SWELLING Home Medications Medication Instructions Recorded Confirmed Type apixaban [Eliquis] 5 mg PO BID 05/25/18 10/05/18 History docusate sodium [Colace] 100 mg PO BID 05/25/18 10/05/18 History furosemide [Lasix] 20 mg PO BID PRN 05/25/18 10/05/18 History metoclopramide HCl 10 mg PO TID 05/25/18 10/05/18 History ondansetron HCl [Zofran] 8 mg PO TID PRN 05/25/18 10/05/18 History oxycodone 10 mg PO Q4-6H PRN 05/25/18 10/05/18 History Exam Vital signs: Vital Signs 10/06/18 20:00 10/07/18 00:00 10/07/18 04:00 Temperature 97.6 F 97.7 F 97.8 F Pulse Rate 117 H 99 H 104 H Respiratory Rate 16 16 16 Blood Pressure 120/60 113/78 120/78 Pulse Oximetry 95 100 100 10/07/18 08:00 10/07/18 08:03 10/07/18 12:00 Temperature 97.5 F L 97.8 F Pulse Rate 108 H 115 H 106 H Respiratory Rate 20 16 Blood Pressure 111/77 106/75 Pulse Oximetry 99 98 10/07/18 12:51 10/07/18 18:00 10/07/18 19:42 Temperature 97.7 F 97.8 F Pulse Rate 104 H 106 H Respiratory Rate 16 16 18 Blood Pressure 123/78 110/77 Pulse Oximetry 100 99 Intake & Output 10/07/18 10/07/18 10/08/18 06:59 18:59 06:59 Intake Total 2100 / 2100 1760 / 1760 Output Total 700 / 700 350 / 350 Balance 1400 / 1400 1410 / 1410 Weight 100 kg Intake: IV 2100 / 2100 1300 / 1300 Heparin/D5W 25,000 U/250 mL 25, 250 / 250 000 unit In 250 ml @ Per Protocol IV.CONT TITRATE PRN Rx #:[id number] 1/2 Normal Saline Inj 1,000 ML 2000 / 2000 1000 / 1000 @ 100 mls/hr IV.CONT .Q10H [facility] Rx#:[id number] Zosyn 2.25 GM Premix 50 ML @ 100 / 100 50 / 50 100 mls/hr IV.SIG Q6H [facility] Rx#: [id number] Oral 460 / 460 Output: Urine 100 / 100 Urine Amount (Catheter) 600 / 600 350 / 350 Indwelling Urethral Catheter 350 / 350 Straight 600 / 600 Other: Date of Last Bowel Movement 10/03/18 - Constitutional no acute distress, morbidly obese - Routine HEENT Exam Head: Present: normocephalic, atraumatic Eye: Present: EOMI, PERRL ENT: Present: mucous membranes moist, oropharynx clear - Routine Neck Exam Present: supple. Absent: JVD - Routine Chest/Breast/Axilla Exam Comments: R chest PORT in place w/o skin changes around - Routine Respiratory Exam Present: decreased breath sounds, CTA bilaterally - Routine Cardiovascular Exam Present: RRR, S1, S2. Absent: murmur, gallop, rubs - Routine Abdominal Exam Present: soft, tenderness, distended. Absent: organomegaly, mass - Routine Extremities Exam Present: edema, calf tenderness (LLE ). Absent: cyanosis, clubbing Results - Labs CBC & Chem 7: 10/07/18 04:50 10/07/18 04:50 Labs: Laboratory Results - last 24 hr 10/07/18 10/07/18 10/07/18 00:07 04:50 04:50 WBC 0.6 L D RBC 2.67 L Hgb 8.6 L Hct 25.3 L MCV 94.7 MCH 32.3 MCHC 34.1 RDW 28.7 H Plt Count 28 L D MPV 9.1 Prelim Diff (Auto) Manual diff required WBC Differential Manual diff final Seg Neuts % (Manual) 42 Band Neuts % (Manual) 4 Lymphocytes % (Manual) 49 H Monocytes % (Manual) 4 Myelocytes % (Man) 1 H Abs Neuts (Manual) 0.3 L* Nucleated RBCs/100 WBC 1 H Differential Comment . Platelet Estimate Low L Platelet Morphology Normal [place] Cells 1+ H Acanthocytes (Spur) Occ H APTT 62.8 H D Sodium 139 Potassium 4.3 Chloride 111 H Carbon Dioxide 17.6 L Anion Gap 10 BUN 72 H Creatinine 1.40 H Estimated GFR 39 L Random Glucose 126 H Calcium 6.9 L* Calcium Adj for Albumin 8.2 L Magnesium 2.6 H Total Bilirubin 4.5 H AST 217 H ALT 514 H Alkaline Phosphatase 155 H Total Protein 4.7 L Albumin 2.2 L 10/07/18 06:10 WBC RBC Hgb Hct MCV MCH MCHC RDW Plt Count MPV Prelim Diff (Auto) WBC Differential Seg Neuts % (Manual) Band Neuts % (Manual) Lymphocytes % (Manual) Monocytes % (Manual) Myelocytes % (Man) Abs Neuts (Manual) Nucleated RBCs/100 WBC Differential Comment Platelet Estimate Platelet Morphology Nicolas Cells Acanthocytes (Spur) APTT 58.8 H Sodium Potassium Chloride Carbon Dioxide Anion Gap BUN Creatinine Estimated GFR Random Glucose Calcium Calcium Adj for Albumin Magnesium Total Bilirubin AST ALT Alkaline Phosphatase Total Protein Albumin - Imaging ITS Impressions Abdomen/Pelvis CT 10/05/18 15:39 . CONCLUSION: 1. Significant deterioration in the appearance of the pelvis with advancing pelvic soft tissue mass and bony metastatic disease involving the left hip 2. Induration along the ascending colon with bowel wall thickening that could be an early colitis. 3. Increasing metastatic disease in both lungs Chest X-Ray 10/05/18 15:39 CONCLUSION: Scattered nodular densities bilaterally consistent with possible metastatic disease. Dedicated CT of the chest would be helpful for confirmation. Chest CT 10/05/18 16:46 CONCLUSION: 1. Widespread parenchymal metastatic disease without prior chest CT. 2. Significant deterioration from the PET scan of 05/22/2017. 3. No pleural effusion. Assessment and Plan - Plan E.coli sepsis Colitis ? Metastatic uterine sarcoma, sp chemotherapy cont zosyn r/o c.diff
[2018-10-08] MEDS: HYDROmorphone PF Inj 2 MG/ML Vial IV.PUSH PRN ×3 (00:11→12:27)
[2018-10-08] MEDS: Piperacil/Tazo 2.25 GM Premix 50 ML IV.SIG SCH ×5 (00:11→23:52)
[2018-10-08] MEDS: Isosorbide Mononitrate 60 MG ER 24HR Tablet (Imdur) PO SCH ×2 (05:42→07:23)
[2018-10-08 06:14] LABS: Hematocrit 23.5 % (35.0-46.0); Hemoglobin 7.8 gm/dL (11.6-15.3); Mean Corpuscular HGB Conc 33.2 % (32.0-36.0); Mean Corpuscular Hemoglobin 32.1 pg (27.0-34.0); Mean Corpuscular Volume 96.7 fL (80.0-100.0); Mean Platelet Volume 10.3 fL (7.0-11.0); Red Blood Count 2.43 mil/mm3 (4.00-5.30); Red Cell Distribution Width 28.4 % (11.6-17.2); White Blood Count 0.5 th/mm3 (4.0-11.0)
[2018-10-08 06:20] LABS: Platelet Count 12 th/mm3 (150-450)
--- NOTE | 2018-10-08 07:44 | P.PNONC ---
Subjective Interval history: patient resting in bed c/o nausea and pain just received antinausea medication and pain medication Gandhi placed Objective Vital Signs/Intake & Output: Vital Signs 10/07/18 08:00 10/07/18 08:03 10/07/18 12:00 Temperature 97.5 F L 97.8 F Pulse Rate 108 H 115 H 106 H Respiratory Rate 20 16 Blood Pressure 111/77 106/75 Pulse Oximetry 99 98 10/07/18 12:51 10/07/18 18:00 10/07/18 19:42 Temperature 97.7 F 97.8 F Pulse Rate 104 H 106 H Respiratory Rate 16 16 18 Blood Pressure 123/78 110/77 Pulse Oximetry 100 99 10/07/18 20:01 10/07/18 23:58 10/08/18 00:19 Temperature 97.5 F L Pulse Rate 106 H 98 H 104 H Respiratory Rate 18 Blood Pressure 125/84 Pulse Oximetry 98 10/08/18 00:41 10/08/18 04:00 10/08/18 04:04 Temperature 97.7 F Pulse Rate 106 H 99 H Respiratory Rate 16 18 Blood Pressure 115/76 Pulse Oximetry 98 Intake & Output 10/07/18 10/08/18 10/08/18 18:59 06:59 18:59 Intake Total 1810 / 1810 1580 / 1580 1000 / 1000 Output Total 350 / 350 650 / 650 Balance 1460 / 1460 930 / 930 1000 / 1000 Weight 100.1 kg Intake: IV 1350 / 1350 1100 / 1100 1000 / 1000 Heparin/D5W 25,000 U/250 mL 25, 250 / 250 000 unit In 250 ml @ Per Protocol IV.CONT TITRATE PRN Rx #:[id number] 1/2 Normal Saline Inj 1,000 ML 1000 / 1000 1000 / 1000 1000 / 1000 @ 100 mls/hr IV.CONT .Q10H [facility] Rx#:[id number] Zosyn 2.25 GM Premix 50 ML @ 100 / 100 100 / 100 100 mls/hr IV.SIG Q6H [facility] Rx#: [id number] Oral 460 / 460 480 / 480 Output: Urine Amount (Catheter) 350 / 350 650 / 650 Indwelling Urethral Catheter 350 / 350 650 / 650 Result Diagrams: 10/08/18 05:56 10/07/18 04:50 Laboratory Results: Laboratory Results - last 24 hr 10/07/18 10/07/18 10/08/18 04:50 04:50 05:56 WBC 0.6 L D 0.5 L RBC 2.67 L 2.43 L Hgb 8.6 L 7.8 L Hct 25.3 L 23.5 L MCV 94.7 96.7 MCH 32.3 32.1 MCHC 34.1 33.2 RDW 28.7 H 28.4 H Plt Count 28 L D 12 L* D MPV 9.1 10.3 Prelim Diff (Auto) Manual diff required WBC Differential Manual diff final Seg Neuts % (Manual) 42 Band Neuts % (Manual) 4 Lymphocytes % (Manual) 49 H Monocytes % (Manual) 4 Myelocytes % (Man) 1 H Abs Neuts (Manual) 0.3 L* Nucleated RBCs/100 WBC 1 H Differential Comment . Platelet Estimate Low L Platelet Morphology Normal [place] Cells 1+ H Acanthocytes (Spur) Occ H APTT Sodium 139 Potassium 4.3 Chloride 111 H Carbon Dioxide 17.6 L Anion Gap 10 BUN 72 H Creatinine 1.40 H Estimated GFR 39 L Random Glucose 126 H Calcium 6.9 L* Calcium Adj for Albumin 8.2 L Magnesium 2.6 H Total Bilirubin 4.5 H AST 217 H ALT 514 H Alkaline Phosphatase 155 H Total Protein 4.7 L Albumin 2.2 L 10/08/18 05:56 WBC RBC Hgb Hct MCV MCH MCHC RDW Plt Count MPV Prelim Diff (Auto) WBC Differential Seg Neuts % (Manual) Band Neuts % (Manual) Lymphocytes % (Manual) Monocytes % (Manual) Myelocytes % (Man) Abs Neuts (Manual) Nucleated RBCs/100 WBC Differential Comment Platelet Estimate Platelet Morphology Nicolas Cells Acanthocytes (Spur) APTT 31.3 D Sodium Potassium Chloride Carbon Dioxide Anion Gap BUN Creatinine Estimated GFR Random Glucose Calcium Calcium Adj for Albumin Magnesium Total Bilirubin AST ALT Alkaline Phosphatase Total Protein Albumin Culture Results: Microbiology 10/05/18 16:30 Urine Culture - Final Catheterized Urine No growth in 48 hours 10/05/18 17:11 Aerobic Blood Culture - Preliminary Blood - Peripheral No growth in 2 days Anaerobic Blood Culture - Preliminary Escherichia coli 10/05/18 17:00 Aerobic Blood Culture - Preliminary Blood - Peripheral No growth in 2 days Anaerobic Blood Culture - Preliminary No growth in 2 days Medications: Active Medications Generic Name Dose Route Start Last Admin Trade Name Freq PRN Reason Stop Dose Admin Apixaban 5 mg 10/07/18 21:00 10/07/18 21:12 Eliquis PO 5 mg BID ANKUR Administration Aspirin 81 mg 10/07/18 09:00 10/07/18 08:06 Ecotrin PO 81 mg DAILY ANKUR Administration Hydromorphone HCl 1 mg 10/05/18 20:21 10/08/18 07:14 Dilaudid Pf Inj IV.PUSH 1 mg Q3H PRN Administration pain 6-10 Sodium Chloride 1,000 mls @ 100 mls/hr 10/06/18 10:30 10/08/18 07:23 1/2 Normal Saline Inj IV.CONT Infused .Q10H [facility] Infusion Piperacillin/Tazobactam/Dextrose 50 mls @ 100 mls/hr 10/07/18 18:00 10/08/18 06:12 Zosyn 2.25 Gm Premix IV.SIG Infused Q6H [facility] Infusion Isosorbide Mononitrate 60 mg 10/07/18 07:00 10/08/18 07:23 Imdur PO Not Given DAILY@0700 [facility] Metoprolol Tartrate 12.5 mg 10/06/18 21:00 10/07/18 21:12 Lopressor PO 12.5 mg BID ANKUR Administration Prochlorperazine Edisylate 10 mg 10/05/18 20:22 10/08/18 07:14 Compazine Inj IV.PUSH 10 mg Q6H PRN Administration Nausea And Vomiting Sodium Chloride 2 ml 10/05/18 21:00 10/07/18 23:08 Ns Inj IV.FLUSH Not Given BID [facility] Objective Remarks: GENERAL: acutely ill, in NAD SKIN: Warm and dry. HEAD: Normocephalic. EYES: No scleral icterus. No injection or drainage. CARDIOVASCULAR: Regular rate and rhythm RESPIRATORY: No accessory muscle use. EXTREMITIES: edema to bilat LE MUSCULOSKELETAL: Adequate muscle tone. NEUROLOGICAL: No obvious focal deficit. Awake, alert, and oriented x3. PSYCHIATRIC: Appropriate mood and affect; insight and judgment normal. Assessment/Plan (1) UTI (urinary tract infection) Code(s): N39.0 - Urinary tract infection, site not specified Status: Acute (2) Cancer, uterine Code(s): C55 - Malignant neoplasm of uterus, part unspecified Status: Acute - Plan ID following, ABX pancytopenia: worse today, consider infusion of platelets and blood transfusion neutropenia despite Neulasta given post chemo, reported by patient supportive care, IV hydration, pain and antinausea meds PRN no changes in current management of metastatic uterine cancer, patient will follow up at [facility] as scheduled (1) UTI (urinary tract infection) Qualifiers: Urinary tract infection type: acute cystitis Hematuria presence: with hematuria Qualified Code(s): N30.01 - Acute cystitis with hematuria (2) Cancer, uterine Qualifiers: Malignant neoplasm of uterus location: unspecified site of uterus Qualified Code(s): C55 - Malignant neoplasm of uterus, part unspecified
[2018-10-08] MEDS: Metoprolol Tartrate 25 MG Tablet PO SCH ×2 (09:02→20:09)
[2018-10-08] MEDS: Sodium Chloride 0.45 % Inj 1,000 ML IV.CONT SCH ×2 (09:03→20:11)
--- NOTE | 2018-10-08 13:20 | P.PN ---
Subjective Interval history: no further diarrhea- last BM was actually 4 days ago- per patient Passing out lots of flatus slight nausea but eating small freequent meals and tolerating Physical Exam Vital signs: Vital Signs 10/07/18 18:00 10/07/18 19:42 10/07/18 20:01 Temperature 97.7 F 97.8 F Pulse Rate 104 H 106 H 106 H Respiratory Rate 16 18 Blood Pressure 123/78 110/77 Pulse Oximetry 100 99 10/07/18 23:58 10/08/18 00:19 10/08/18 00:41 Temperature 97.5 F L Pulse Rate 98 H 104 H Respiratory Rate 18 16 Blood Pressure 125/84 Pulse Oximetry 98 10/08/18 04:00 10/08/18 04:04 10/08/18 08:42 Temperature 97.7 F 97.9 F Pulse Rate 106 H 99 H 109 H Respiratory Rate 18 16 Blood Pressure 115/76 104/60 Pulse Oximetry 98 99 10/08/18 12:08 Temperature 97.3 F L Pulse Rate 102 H Respiratory Rate 16 Blood Pressure 117/72 Pulse Oximetry 98 Intake & Output 10/07/18 10/08/18 10/08/18 18:59 06:59 18:59 Intake Total 1810 / 1810 1580 / 1580 1000 / 1000 Output Total 350 / 350 650 / 650 Balance 1460 / 1460 930 / 930 1000 / 1000 Weight 100.1 kg Intake: IV 1350 / 1350 1100 / 1100 1000 / 1000 Heparin/D5W 25,000 U/250 mL 25, 250 / 250 000 unit In 250 ml @ Per Protocol IV.CONT TITRATE PRN Rx #:[id number] 1/2 Normal Saline Inj 1,000 ML 1000 / 1000 1000 / 1000 1000 / 1000 @ 100 mls/hr IV.CONT .Q10H ANKUR Rx#:[id number] Zosyn 2.25 GM Premix 50 ML @ 100 / 100 100 / 100 100 mls/hr IV.SIG Q6H ANKUR Rx#: [id number] Oral 460 / 460 480 / 480 Output: Urine Amount (Catheter) 350 / 350 650 / 650 Indwelling Urethral Catheter 350 / 350 650 / 650 Other: Date of Last Bowel Movement 10/03/18 Narrative: awake and alert, oriented x 3, interactive, speech clear anicteric regular rhythm no rales, no wheezes, decreased breath sounds Abdomen soft, normal bowel sounds, slightly distended compared to yesterday Right LE- + swelling west in place Neuro no obvious neurological deficits.- moves all extremities spontaenously - Urinary Catheter Management Straight Cath placed during this visit: yes, but has since been removed by the nurse Reason for continuing: Acute urinary retention Insertion date: 10/07/18 Insertion time: 12:02 Removal date: 10/05/18 Removal time: 04:30 Indwelling Urethral Catheter Cath placed during this visit: no Results - Labs CBC & Chem 7: 10/08/18 05:56 10/07/18 04:50 Laboratory Results - last 24 hr 10/08/18 10/08/18 05:56 05:56 WBC 0.5 L RBC 2.43 L Hgb 7.8 L Hct 23.5 L MCV 96.7 MCH 32.1 MCHC 33.2 RDW 28.4 H Plt Count 12 L* D MPV 10.3 APTT 31.3 D Microbiology 10/05/18 17:11 Blood - Peripheral Aerobic Blood Culture - Preliminary No growth in 3 days 10/05/18 17:11 Blood - Peripheral Anaerobic Blood Culture - Final Escherichia coli 10/05/18 17:00 Blood - Peripheral Aerobic Blood Culture - Preliminary No growth in 3 days 10/05/18 17:00 Blood - Peripheral Anaerobic Blood Culture - Preliminary No growth in 3 days 10/05/18 16:30 Catheterized Urine Urine Culture - Final No growth in 48 hours Assessment and Plan - Plan 53-year-old female with 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 The patient recently had chemotherapy on Friday and Friday prior . Patient says she felt dehydrated and weak and then presented to the emergency department for evaluation. She also had left-sided chest pain that she described as pressure in nature without any radiation. Non-ST segment elevation [place] Thrombocytopenia History of DVT s/p IVC filter No active chest pain EKG shows normal sinus rhythm, no ST segment or T wave changes. Troponins were elevated at 1.1, now have showed a down trend. Patient says that she is allergic to aspirin which makes her feel severely nauseous and causes vomiting. The patient is thrombocytopenic, likely secondary to recent chemotherapy. No signs of active bleeding. Currently the heparin drip has been held due to elevated PTT level. We will continue heparin drip as per protocol and closely monitor for bleeding EF technically difficult- aroujd 35%- suspect due to non ischemi cetiology CArdiology ff - recommends conservative management with ASA. BB, oral nitrate and PK Eliquis 5 mg po bid Acute kidney injury likely prerenal Acute urinary retention Patient had an elevated serum creatinine of 1.65 on admission, BUN elevated. After the initiation of IV fluids her serum creatinine has down trended to 1.35. Avoid nephrotoxic agents. FF BMP 10/06 evening - straight cath last evening 600 cc after no voiding/output for 6 hours west placed 10/07 decreased IVF rate to 60- cc/hr with low EF Uterine cancer with metastasis to the bone and lungs Elevated LFTs-- multifactorial from mets, likelwith chronic passive congestion from cardiomyopathy trending down Oncology ff CT imaging shows metastatic disease to the lungs and bone. Patient also has significantly elevated LFTs, no evidence of metastasis on abdominal imaging to the liver. LFTs slightly downtrending from yesterday. check CMP in am Continue IVF E coli sepsis setting of pancytopenia UTI - continue on zosyn - ID ff DVT prophylaxis, patient is currently on eliquis
[2018-10-08] MEDS ORDERED: Bisacodyl 10 MG Supp RECTAL PRN (19:50)
[2018-10-08] MEDS: Senna/Docusate Sodium 8.6/50 MG Tablet PO SCH (20:09)
--- NOTE | 2018-10-08 21:42 | P.PNCC ---
Critical Care Event Note Code activated: Yes Narrative: Responded to CODE BLUE. Patient had gotten up to bedside commode and was not responding to questions. She had a palpable pulse. She was moved over to bed. BP was normal. She seemed to have slurred speech but daughter stated speech was baseline. She had L eye exotropia which was also reportedly baseline. She was moving all extremities, seemed weak in RLE but patient reports that is also chronic related to tumor. Reviewed telemetry, no rhythm abnormalities. Blood glucose is 219. Ordered CT brain, labs. She does have anemia and thrombocytopenia. I suspect this episode is related to orthostasis and anemia. Discussed with Dr. Cabrera who is covering for [facility] (the attending service). She will followup on ordered labs and CT, probably transfuse. I updated patient and her daughter. Critical care time: less than 30 mins
[2018-10-08 21:45] LABS: Hematocrit 22.2 % (35.0-46.0); Hemoglobin 7.3 gm/dL (11.6-15.3); Mean Corpuscular HGB Conc 32.6 % (32.0-36.0); Mean Corpuscular Hemoglobin 31.1 pg (27.0-34.0); Mean Corpuscular Volume 95.3 fL (80.0-100.0); Mean Platelet Volume 10.6 fL (7.0-11.0); Red Blood Count 2.33 mil/mm3 (4.00-5.30); Red Cell Distribution Width 28.3 % (11.6-17.2); White Blood Count 0.7 th/mm3 (4.0-11.0)
[2018-10-08 21:50] LABS: Platelet Count 12 th/mm3 (150-450)
[2018-10-08 21:57] LABS: INR 1.1 Ratio; Prothrombin Time 10.7 sec (9.8-11.6)
[2018-10-08 22:16] LABS: Calcium 7.1 mg/dL (8.5-10.1); Carbon Dioxide 13.8 meq/L (21.0-32.0); Potassium 3.3 meq/L (3.5-5.1)
--- NOTE | 2018-10-08 22:37 | CT ---
EXAM DATE: 10/08/2018 10:31 PM EST AGE/SEX: 53 years / Female INDICATIONS: Altered mental status. Weakness. Patient has a known right frontal lobe meningioma. CLINICAL DATA: This is the patient's initial encounter. Patient reports that signs and symptoms have been present for 1 day and indicates a pain score of 0/10. MEDICAL/SURGICAL HISTORY: Carcinoma, uterine. Metastatic disease. Hysterectomy. IVC Filter placem ent. Appendectomy. RADIATION DOSE: 56.35 CTDI (mGy) COMPARISON: POI, CT BRAIN W AND W/O CONTRAST, 06/04/2017. . TECHNIQUE: CT of the head without contrast. Using automated exposure control and adjustment of the mA and/or kV according to patient size, radiation dose was kept as low as reasonably achievable to ob tain optimal diagnostic quality images. DICOM format image data is available electronically for revi ew and comparison. FINDINGS: Cerebrum: The ventricles are normal for age. No evidence of midline shift, hemorrhage or acute infa rction. No extraaxial fluid collections are seen. There is a stable 1.2 cm extra-axial meningioma al marion the right frontal lobe. There is no edema or mass effect. Posterior Fossa: The cerebellum and brainstem are intact. The 4th ventricle is midline. The cerebe llopontine angle is unremarkable. Extracranial: The visualized portion of the orbits is intact. Skull: The calvaria is intact. No evidence of skull fracture. CONCLUSION: 1. Stable appearance of the known meningioma along the right frontal lobe. 2. No acute hemorrhage or mass effect. . Electronically signed by: Sudhir Ward MD 10/08/2018 10:36 PM EST
[2018-10-08 22:43] LABS: Total Protein 4.5 g/dL (6.4-8.2)
[2018-10-08] MEDS ORDERED: Sodium Chlor 0.9% Inj 250 ML IV.SIG SCH (23:45)
[2018-10-09 04:34] LABS: Hematocrit 25.7 % (35.0-46.0); Hemoglobin 8.6 gm/dL (11.6-15.3); Mean Corpuscular HGB Conc 33.5 % (32.0-36.0); Mean Corpuscular Hemoglobin 30.4 pg (27.0-34.0); Mean Corpuscular Volume 90.7 fL (80.0-100.0); Mean Platelet Volume 10.6 fL (7.0-11.0); Red Blood Count 2.83 mil/mm3 (4.00-5.30); Red Cell Distribution Width 26.9 % (11.6-17.2); White Blood Count 0.4 th/mm3 (4.0-11.0)
[2018-10-09 04:44] LABS: Platelet Count 8 th/mm3 (150-450)
[2018-10-09 05:02] LABS: Albumin 1.9 g/dL (3.4-5.0); Calcium 6.7 mg/dL (8.5-10.1); Carbon Dioxide 19.2 meq/L (21.0-32.0); Potassium 3.3 meq/L (3.5-5.1); Total Protein 4.4 g/dL (6.4-8.2)
[2018-10-09] MEDS: Piperacil/Tazo 2.25 GM Premix 50 ML IV.SIG SCH (05:46)
[2018-10-09] MEDS: Isosorbide Mononitrate 60 MG ER 24HR Tablet (Imdur) PO SCH ×2 (05:47→06:24)
[2018-10-09 06:57] LABS: Lymphocytes 44 % (9-44); Tallied Nucleated RBC 1 (0-0)
[2018-10-09 06:59] LABS: Dohle Bodies Present; Howell-Jolly Bodies Present; Platelet Estimate Rare (Normal)
[2018-10-09 07:00] LABS: Tear Drop Cells 1+
[2018-10-09] MEDS: HYDROmorphone PF Inj 2 MG/ML Vial IV.PUSH PRN ×3 (08:56→17:58)
[2018-10-09] MEDS: Senna/Docusate Sodium 8.6/50 MG Tablet PO SCH ×2 (09:15→21:44)
[2018-10-09] MEDS: Metoprolol Tartrate 25 MG Tablet PO SCH ×3 (09:15→21:44)
--- NOTE | 2018-10-09 12:51 | P.PN ---
Subjective Interval history: awake and alert last evening-after BM- had a syncopal episode denies any chest pains or shortness of breath platelet count low- will give 1 pack platelet - will consult Dr. pastor- re: being on OAC due to NSTEMI- with low platelet Physical Exam Vital signs: Vital Signs 10/08/18 14:00 10/08/18 18:00 10/08/18 18:30 Temperature 97.2 F L Pulse Rate 107 H 110 H 109 H Respiratory Rate 16 Blood Pressure 106/66 Pulse Oximetry 99 10/08/18 19:00 10/08/18 20:00 10/08/18 21:18 Temperature 97.8 F Pulse Rate 106 H 107 H 111 H Respiratory Rate 18 18 Blood Pressure 121/70 103/54 L Pulse Oximetry 99 100 10/08/18 21:25 10/08/18 23:44 10/09/18 00:00 Temperature 97.4 F L Pulse Rate 90 103 H Respiratory Rate 18 Blood Pressure 117/68 Pulse Oximetry 100 99 10/09/18 00:54 10/09/18 01:08 10/09/18 01:11 Temperature 97.8 F 97.6 F 98.8 F Pulse Rate 101 H 99 H 103 H Respiratory Rate 18 18 18 Blood Pressure 122/69 127/66 136/73 Pulse Oximetry 100 100 100 10/09/18 03:20 10/09/18 04:00 10/09/18 08:00 Temperature 97.3 F L 97.4 F L Pulse Rate 96 H 98 H 106 H Respiratory Rate 18 18 Blood Pressure 136/73 95/52 L Pulse Oximetry 99 100 Intake & Output 10/08/18 10/09/18 10/09/18 18:59 06:59 18:59 Intake Total 1290 / 1290 1910 / 1910 Output Total 400 / 400 350 / 350 Balance 890 / 890 1560 / 1560 Weight 103.2 kg Intake: IV 1050 / 1050 1150 / 1150 1/2 Normal Saline Inj 1,000 ML 1000 / 1000 1000 / 1000 @ 100 mls/hr IV.CONT .Q10H ANKUR Rx#:[id number] Zosyn 2.25 GM Premix 50 ML @ 50 / 50 150 / 150 100 mls/hr IV.SIG Q6H ANKUR Rx#: [id number] Oral 240 / 240 360 / 360 Intake (Blood Product) Amt 400 / 400 Rbc As-3 Leukoreduced Unit 400 / 400 [id number] Output: Urine 400 / 400 Urine Amount (Catheter) 350 / 350 Indwelling Urethral Catheter 350 / 350 Other: Date of Last Bowel Movement 10/03/18 10/08/18 10/09/18 # Bowel Movements 1 Narrative: awake and alert, oriented x 3, interactive, speech clear anicteric regular rhythm no rales, no wheezes, decreased breath sounds Abdomen soft, normal bowel sounds Right LE- + swelling Neuro no obvious neurological deficits.- moves all extremities spontaneously - Urinary Catheter Management Straight Cath placed during this visit: yes, but has since been removed by the nurse Reason for continuing: Acute urinary retention Insertion date: 10/07/18 Insertion time: 12:02 Removal date: 10/05/18 Removal time: 04:30 Indwelling Urethral Catheter Cath placed during this visit: no Reason for continuing: Acute urinary retention Results - Labs CBC & Chem 7: 10/09/18 04:00 10/09/18 04:00 Laboratory Results - last 24 hr 10/08/18 10/08/18 10/08/18 21:18 21:20 21:20 WBC 0.7 L RBC 2.33 L Hgb 7.3 L Hct 22.2 L MCV 95.3 MCH 31.1 MCHC 32.6 RDW 28.3 H Plt Count 12 L* MPV 10.6 Prelim Diff (Auto) WBC Differential Seg Neuts % (Manual) Band Neuts % (Manual) Lymphocytes % (Manual) Abs Neuts (Manual) Nucleated RBCs/100 WBC Differential Comment Dohle Bodies Platelet Estimate Platelet Morphology Tear Drop Cells [place] Bodies PT INR APTT Sodium 135 L Potassium 3.3 L D Chloride 107 Carbon Dioxide 13.8 L Anion Gap 14 BUN 68 H Creatinine 1.31 H Estimated GFR 42 L POC Glucose 215 H Random Glucose 185 H Calcium 7.1 L* Calcium Adj for Albumin 8.5 Total Bilirubin 4.0 H AST 167 H ALT 342 H Alkaline Phosphatase 139 H Total Protein 4.5 L Albumin 2.0 L Stl C.difficile DNA Amp St C. diff Tox Epid 027 Blood Type Antibody Screen MTS Gel Crossmatch 10/08/18 10/08/18 10/08/18 21:20 21:20 21:20 WBC RBC Hgb Hct MCV MCH MCHC RDW Plt Count MPV Prelim Diff (Auto) WBC Differential Seg Neuts % (Manual) Band Neuts % (Manual) Lymphocytes % (Manual) Abs Neuts (Manual) Nucleated RBCs/100 WBC Differential Comment Dohle Bodies Platelet Estimate Platelet Morphology Tear Drop Cells [place] Bodies PT 10.7 INR 1.1 APTT 31.5 Sodium Potassium Chloride Carbon Dioxide Anion Gap BUN Creatinine Estimated GFR POC Glucose Random Glucose Calcium Calcium Adj for Albumin Total Bilirubin AST ALT Alkaline Phosphatase Total Protein Albumin Stl C.difficile DNA Amp St C. diff Tox Epid 027 Blood Type B Positive Antibody Screen Negative MTS Gel Crossmatch 10/08/18 10/08/18 10/09/18 21:20 23:23 04:00 WBC 0.4 L RBC 2.83 L Hgb 8.6 L Hct 25.7 L MCV 90.7 D MCH 30.4 MCHC 33.5 RDW 26.9 H Plt Count 8 L* D MPV 10.6 Prelim Diff (Auto) Manual diff required WBC Differential Manual diff final Seg Neuts % (Manual) 48 Band Neuts % (Manual) 8 H Lymphocytes % (Manual) 44 Abs Neuts (Manual) 0.2 L* Nucleated RBCs/100 WBC 2 H Differential Comment . Dohle Bodies Present H Platelet Estimate Rare L Platelet Morphology Enlarged H Tear Drop Cells 1+ H [place] Bodies Present H PT INR APTT Sodium Potassium Chloride Carbon Dioxide Anion Gap BUN Creatinine Estimated GFR POC Glucose Random Glucose Calcium Calcium Adj for Albumin Total Bilirubin AST ALT Alkaline Phosphatase Total Protein Albumin Stl C.difficile DNA Amp Negative St C. diff Tox Epid 027 Negative Blood Type Antibody Screen MTS Gel Crossmatch See Detail 10/09/18 04:00 WBC RBC Hgb Hct MCV MCH MCHC RDW Plt Count MPV Prelim Diff (Auto) WBC Differential Seg Neuts % (Manual) Band Neuts % (Manual) Lymphocytes % (Manual) Abs Neuts (Manual) Nucleated RBCs/100 WBC Differential Comment Dohle Bodies Platelet Estimate Platelet Morphology Tear Drop Cells [place] Bodies PT INR APTT Sodium 137 Potassium 3.3 L Chloride 107 Carbon Dioxide 19.2 L Anion Gap 11 BUN 63 H Creatinine 1.11 H Estimated GFR 51 L POC Glucose Random Glucose 137 H Calcium 6.7 L* Calcium Adj for Albumin 8.1 L Total Bilirubin 4.4 H AST 185 H ALT 313 H Alkaline Phosphatase 131 H Total Protein 4.4 L Albumin 1.9 L Stl C.difficile DNA Amp St C. diff Tox Epid 027 Blood Type Antibody Screen MTS Gel Crossmatch Microbiology 10/05/18 17:11 Blood - Peripheral Aerobic Blood Culture - Preliminary No growth in 4 days 10/05/18 17:11 Blood - Peripheral Anaerobic Blood Culture - Final Escherichia coli 10/05/18 17:00 Blood - Peripheral Aerobic Blood Culture - Preliminary No growth in 4 days 10/05/18 17:00 Blood - Peripheral Anaerobic Blood Culture - Preliminary No growth in 4 days - Imaging Impressions Head CT 10/08/18 21:30 CONCLUSION: 1. Stable appearance of the known meningioma along the right frontal lobe. 2. No acute hemorrhage or mass effect. . Assessment and Plan - Plan This patient is a 53-year-old female with uterine cancer with metastasis to the bone and lungs, history of DVT on Eliquis who presented to the emergency part with complaints of nausea since Friday afternoon. The patient recently had chemotherapy on Friday and Friday prior to . Patient says she felt dehydrated and weak and then presented to the emergency department for evaluation. She also had left-sided chest pain that she described as pressure in nature without any radiation. Non-ST segment elevation [place], cardiomyopathy No active chest pain EKG shows normal sinus rhythm, no ST segment or T wave changes. Troponins were elevated at 1.1, now have showed a down trend. Patient says that she is allergic to aspirin which makes her feel severely nauseous and causes vomiting. The patient is thrombocytopenic, likely secondary to recent chemotherapy. No signs of active bleeding. Currently the heparin drip has been held due to elevated PTT level. We will continue heparin drip as per protocol and closely monitor for bleeding EF technically difficult- around 35%- suspect due to non ischemic etiology CArdiology ff - recommends conservative management with ASA. BB, oral nitrate and PK Eliquis 5 mg po bid Pancytopenia History of DVT s/p IVC filter - anemia- improved S/P RBC transfuison - give 1 pack platelet- for thormboctyopenia- platelet 8 - consult Dr. Pastor - for panyctopenia- in setting of NSTEMI- on OAC Acute kidney injury likely prerenal Acute urinary retention Patient had an elevated serum creatinine of 1.65 on admission, BUN elevated. trended to 1.35. Avoid nephrotoxic agents. Follow-up a.m. labs. west catheter placed - today 10/07- got 200 cc out yesterday straight cath last evening 600 cc, after no voiding/output for 6 hours decreased IVF rate to 50- cc/hr with low EF Uterine cancer with metastasis to the bone and lungs Elevated LFTs-- multifactorial from mets, likely with chronic passive congestion from cardiomyopathy trending down Oncology ff CT imaging shows metastatic disease to the lungs and bone. Patient also has significantly elevated LFTs, no evidence of metastasis on abdominal imaging to the liver. LFTs slightly downtrending Follow-up a.m. labs. Continue IVF- decrease rate E coli sepsis setting of pancytopenia UTI - afebrile but neutropenic - continue on zosyn - ID ff - repeat Blood culture next few days to ensure clearance Vasovagal syncope episode 10/09 - neuro intact - monitor DVT prophylaxis, patient is currently on eliquis
[2018-10-09] MEDS: Piperacil/Tazo 3.375 GM Premix 50 ML IV.SIG SCH ×2 (13:06→19:47)
[2018-10-09] MEDS: Sodium Chloride 0.45 % Inj 1,000 ML IV.CONT SCH ×2 (13:14→13:15)
--- NOTE | 2018-10-09 15:29 | P.PN ---
Subjective Interval history: She feels very tired lightheaded and fell yesterday evening from bedside commode with bite/bruised tongue pain adequately controlled family members present and her (Aldo) joined us via telephone. Physical Exam Vital signs: Vital Signs 10/08/18 18:00 10/08/18 18:30 10/08/18 19:00 Temperature 97.2 F L Pulse Rate 110 H 109 H 106 H Respiratory Rate 16 Blood Pressure 106/66 Pulse Oximetry 99 10/08/18 20:00 10/08/18 21:18 10/08/18 21:25 Temperature 97.8 F Pulse Rate 107 H 111 H Respiratory Rate 18 18 Blood Pressure 121/70 103/54 L Pulse Oximetry 99 100 100 10/08/18 23:44 10/09/18 00:00 10/09/18 00:54 Temperature 97.4 F L 97.8 F Pulse Rate 90 103 H 101 H Respiratory Rate 18 18 Blood Pressure 117/68 122/69 Pulse Oximetry 99 100 10/09/18 01:08 10/09/18 01:11 10/09/18 03:20 Temperature 97.6 F 98.8 F 97.3 F L Pulse Rate 99 H 103 H 96 H Respiratory Rate 18 18 18 Blood Pressure 127/66 136/73 136/73 Pulse Oximetry 100 100 99 10/09/18 04:00 10/09/18 08:00 Temperature 97.4 F L Pulse Rate 98 H 106 H Respiratory Rate 18 Blood Pressure 95/52 L Pulse Oximetry 100 Intake & Output 10/08/18 10/09/18 10/09/18 18:59 06:59 18:59 Intake Total 1290 / 1290 2910 / 2910 0 / 0 Output Total 400 / 400 350 / 350 Balance 890 / 890 2560 / 2560 0 / 0 Weight 103.2 kg Intake: IV 1050 / 1050 2150 / 2150 1/2 Normal Saline Inj 1,000 ML 1000 / 1000 2000 / 2000 @ 50 mls/hr IV.CONT .Q20H ANKUR Rx#:[id number] Zosyn 2.25 GM Premix 50 ML @ 50 / 50 150 / 150 100 mls/hr IV.SIG Q6H ANKUR Rx#: [id number] Oral 240 / 240 360 / 360 Intake (Blood Product) Amt 400 / 400 0 / 0 Prepooled Plts Leukoreduced 5d 0 / 0 Unit [id number] Rbc As-3 Leukoreduced Unit 400 / 400 [id number] Output: Urine 400 / 400 Urine Amount (Catheter) 350 / 350 Indwelling Urethral Catheter 350 / 350 Other: Date of Last Bowel Movement 10/03/18 10/08/18 10/09/18 # Bowel Movements 1 - Constitutional somnolent - Routine Abdominal Exam Present: soft (non-acute) - Urinary Catheter Management Straight Cath placed during this visit: yes, but has since been removed by the nurse Reason for continuing: Acute urinary retention Insertion date: 10/07/18 Insertion time: 12:02 Removal date: 10/05/18 Removal time: 04:30 Indwelling Urethral Catheter Cath placed during this visit: no Reason for continuing: Acute urinary retention Results - Labs CBC & Chem 7: 10/09/18 04:00 10/09/18 04:00 Laboratory Results - last 24 hr 10/08/18 10/08/18 10/08/18 21:18 21:20 21:20 WBC 0.7 L RBC 2.33 L Hgb 7.3 L Hct 22.2 L MCV 95.3 MCH 31.1 MCHC 32.6 RDW 28.3 H Plt Count 12 L* MPV 10.6 Prelim Diff (Auto) WBC Differential Seg Neuts % (Manual) Band Neuts % (Manual) Lymphocytes % (Manual) Abs Neuts (Manual) Nucleated RBCs/100 WBC Differential Comment Dohle Bodies Platelet Estimate Platelet Morphology Tear Drop Cells [place] Bodies PT INR APTT Sodium 135 L Potassium 3.3 L D Chloride 107 Carbon Dioxide 13.8 L Anion Gap 14 BUN 68 H Creatinine 1.31 H Estimated GFR 42 L POC Glucose 215 H Random Glucose 185 H Calcium 7.1 L* Calcium Adj for Albumin 8.5 Total Bilirubin 4.0 H AST 167 H ALT 342 H Alkaline Phosphatase 139 H Total Protein 4.5 L Albumin 2.0 L Stl C.difficile DNA Amp St C. diff Tox Epid 027 Blood Type Antibody Screen MTS Gel Crossmatch Bld Prod Order Comment 10/08/18 10/08/18 10/08/18 21:20 21:20 21:20 WBC RBC Hgb Hct MCV MCH MCHC RDW Plt Count MPV Prelim Diff (Auto) WBC Differential Seg Neuts % (Manual) Band Neuts % (Manual) Lymphocytes % (Manual) Abs Neuts (Manual) Nucleated RBCs/100 WBC Differential Comment Dohle Bodies Platelet Estimate Platelet Morphology Tear Drop Cells [place] Bodies PT 10.7 INR 1.1 APTT 31.5 Sodium Potassium Chloride Carbon Dioxide Anion Gap BUN Creatinine Estimated GFR POC Glucose Random Glucose Calcium Calcium Adj for Albumin Total Bilirubin AST ALT Alkaline Phosphatase Total Protein Albumin Stl C.difficile DNA Amp St C. diff Tox Epid 027 Blood Type B Positive Antibody Screen Negative MTS Gel Crossmatch Bld Prod Order Comment 10/08/18 10/08/18 10/09/18 21:20 23:23 04:00 WBC 0.4 L RBC 2.83 L Hgb 8.6 L Hct 25.7 L MCV 90.7 D MCH 30.4 MCHC 33.5 RDW 26.9 H Plt Count 8 L* D MPV 10.6 Prelim Diff (Auto) Manual diff required WBC Differential Manual diff final Seg Neuts % (Manual) 48 Band Neuts % (Manual) 8 H Lymphocytes % (Manual) 44 Abs Neuts (Manual) 0.2 L* Nucleated RBCs/100 WBC 2 H Differential Comment . Dohle Bodies Present H Platelet Estimate Rare L Platelet Morphology Enlarged H Tear Drop Cells 1+ H [place] Bodies Present H PT INR APTT Sodium Potassium Chloride Carbon Dioxide Anion Gap BUN Creatinine Estimated GFR POC Glucose Random Glucose Calcium Calcium Adj for Albumin Total Bilirubin AST ALT Alkaline Phosphatase Total Protein Albumin Stl C.difficile DNA Amp Negative St C. diff Tox Epid 027 Negative Blood Type Antibody Screen MTS Gel Crossmatch See Detail Bld Prod Order Comment 10/09/18 10/09/18 04:00 12:36 WBC RBC Hgb Hct MCV MCH MCHC RDW Plt Count MPV Prelim Diff (Auto) WBC Differential Seg Neuts % (Manual) Band Neuts % (Manual) Lymphocytes % (Manual) Abs Neuts (Manual) Nucleated RBCs/100 WBC Differential Comment Dohle Bodies Platelet Estimate Platelet Morphology Tear Drop Cells [place] Bodies PT INR APTT Sodium 137 Potassium 3.3 L Chloride 107 Carbon Dioxide 19.2 L Anion Gap 11 BUN 63 H Creatinine 1.11 H Estimated GFR 51 L POC Glucose Random Glucose 137 H Calcium 6.7 L* Calcium Adj for Albumin 8.1 L Total Bilirubin 4.4 H AST 185 H ALT 313 H Alkaline Phosphatase 131 H Total Protein 4.4 L Albumin 1.9 L Stl C.difficile DNA Amp St C. diff Tox Epid 027 Blood Type Antibody Screen MTS Gel Crossmatch Bld Prod Order Comment Microbiology 10/05/18 17:11 Blood - Peripheral Aerobic Blood Culture - Preliminary No growth in 4 days 10/05/18 17:11 Blood - Peripheral Anaerobic Blood Culture - Final Escherichia coli 10/05/18 17:00 Blood - Peripheral Aerobic Blood Culture - Preliminary No growth in 4 days 10/05/18 17:00 Blood - Peripheral Anaerobic Blood Culture - Preliminary No growth in 4 days - Imaging Impressions Head CT 10/08/18 21:30 CONCLUSION: 1. Stable appearance of the known meningioma along the right frontal lobe. 2. No acute hemorrhage or mass effect. . Assessment and Plan - Assessment (1) UTI (urinary tract infection) Code(s): N39.0 - Urinary tract infection, site not specified Status: Acute (2) Cancer, uterine Code(s): C55 - Malignant neoplasm of uterus, part unspecified Status: Acute - Plan cpm antibiotics, ivf & lytes correction neutropenic precautions transfuse platelets, PRBCs as needed discussion, Q&A grateful for excellent medical care (1) UTI (urinary tract infection) Qualifiers: Urinary tract infection type: acute cystitis Hematuria presence: with hematuria Qualified Code(s): N30.01 - Acute cystitis with hematuria (2) Cancer, uterine Qualifiers: Malignant neoplasm of uterus location: unspecified site of uterus Qualified Code(s): C55 - Malignant neoplasm of uterus, part unspecified
--- NOTE | 2018-10-09 18:57 | P.PNID ---
Subjective Remarks: co fatigue + abd discomfort Antibiotics: zosyn Allergies/Adverse Reactions: Allergies carisoprodol Allergy (Severe, Verified 10/05/18 15:24) HYPOTENSION doxorubicin Allergy (Severe, Verified 10/05/18 15:24) BP DROPPED;RED FACE;BACK SWELLING Objective Vital Signs 10/08/18 19:00 10/08/18 20:00 10/08/18 21:18 Temperature 97.8 F Pulse Rate 106 H 107 H 111 H Respiratory Rate 18 18 Blood Pressure 121/70 103/54 L Pulse Oximetry 99 100 10/08/18 21:25 10/08/18 23:44 10/09/18 00:00 Temperature 97.4 F L Pulse Rate 90 103 H Respiratory Rate 18 Blood Pressure 117/68 Pulse Oximetry 100 99 10/09/18 00:54 10/09/18 01:08 10/09/18 01:11 Temperature 97.8 F 97.6 F 98.8 F Pulse Rate 101 H 99 H 103 H Respiratory Rate 18 18 18 Blood Pressure 122/69 127/66 136/73 Pulse Oximetry 100 100 100 10/09/18 03:20 10/09/18 04:00 10/09/18 08:00 Temperature 97.3 F L 97.4 F L Pulse Rate 96 H 98 H 106 H Respiratory Rate 18 18 Blood Pressure 136/73 95/52 L Pulse Oximetry 99 100 10/09/18 12:00 10/09/18 15:20 10/09/18 16:00 Temperature 97.3 F L 97.3 F L Pulse Rate 106 H 103 H 101 H Respiratory Rate 18 18 18 Blood Pressure 106/66 99/53 L Pulse Oximetry 100 100 Intake & Output 10/08/18 10/09/18 10/09/18 18:59 06:59 18:59 Intake Total 1290 / 1290 2910 / 2910 410 / 410 Output Total 400 / 400 350 / 350 Balance 890 / 890 2560 / 2560 410 / 410 Weight 103.2 kg Intake: IV 1050 / 1050 2150 / 2150 50 / 50 1/2 Normal Saline Inj 1,000 ML 1000 / 1000 2000 / 2000 @ 50 mls/hr IV.CONT .Q20H [facility] Rx#:[id number] Zosyn 2.25 GM Premix 50 ML @ 50 / 50 150 / 150 100 mls/hr IV.SIG Q6H [facility] Rx#: [id number] Zosyn 3.375 GM Premix 50 ML @ 50 / 50 100 mls/hr IV.SIG Q6H [facility] Rx#: [id number] Oral 240 / 240 360 / 360 360 / 360 Intake (Blood Product) Amt 400 / 400 0 / 0 Prepooled Plts Leukoreduced 5d 0 / 0 Unit [id number] Rbc As-3 Leukoreduced Unit 400 / 400 [id number] Output: Urine 400 / 400 Urine Amount (Catheter) 350 / 350 Indwelling Urethral Catheter 350 / 350 Other: Date of Last Bowel Movement 10/03/18 10/08/18 10/09/18 # Bowel Movements 1 10/05/18 17:11 Blood - Peripheral Aerobic Blood Culture - Preliminary No growth in 4 days 10/05/18 17:11 Blood - Peripheral Anaerobic Blood Culture - Final Escherichia coli 10/05/18 17:00 Blood - Peripheral Aerobic Blood Culture - Preliminary No growth in 4 days 10/05/18 17:00 Blood - Peripheral Anaerobic Blood Culture - Preliminary No growth in 4 days 10/05/18 16:30 Catheterized Urine Urine Culture - Final No growth in 48 hours Lab - Hematology Results 10/08/18 10/08/18 10/09/18 05:56 21:20 04:00 WBC 0.5 L 0.7 L 0.4 L RBC 2.43 L 2.33 L 2.83 L Hgb 7.8 L 7.3 L 8.6 L Hct 23.5 L 22.2 L 25.7 L MCV 96.7 95.3 90.7 D MCH 32.1 31.1 30.4 MCHC 33.2 32.6 33.5 RDW 28.4 H 28.3 H 26.9 H Plt Count 12 L* D 12 L* 8 L* D MPV 10.3 10.6 10.6 Prelim Diff (Auto) Manual diff required WBC Differential Manual diff final Seg Neuts % (Manual) 48 Band Neuts % (Manual) 8 H Lymphocytes % (Manual) 44 Abs Neuts (Manual) 0.2 L* Nucleated RBCs/100 WBC 2 H Differential Comment . Dohle Bodies Present H Platelet Estimate Rare L Platelet Morphology Enlarged H Tear Drop Cells 1+ H [employer] Bodies Present H Lab - Chemistry Results 1110/08/18 10/09/18 21:18 21:20 04:00 Sodium 135 L 137 Potassium 3.3 L D 3.3 L Chloride 107 107 Carbon Dioxide 13.8 L 19.2 L Anion Gap 14 11 BUN 68 H 63 H Creatinine 1.31 H 1.11 H Estimated GFR 42 L 51 L POC Glucose 215 H Random Glucose 185 H 137 H Calcium 7.1 L* 6.7 L* Calcium Adj for Albumin 8.5 8.1 L Total Bilirubin 4.0 H 4.4 H AST 167 H 185 H ALT 342 H 313 H Alkaline Phosphatase 139 H 131 H Total Protein 4.5 L 4.4 L Albumin 2.0 L 1.9 L Imaging: ITS Impressions Abdomen/Pelvis CT 10/05/18 15:39 . CONCLUSION: 1. Significant deterioration in the appearance of the pelvis with advancing pelvic soft tissue mass and bony metastatic disease involving the left hip 2. Induration along the ascending colon with bowel wall thickening that could be an early colitis. 3. Increasing metastatic disease in both lungs Chest X-Ray 10/05/18 15:39 CONCLUSION: Scattered nodular densities bilaterally consistent with possible metastatic disease. Dedicated CT of the chest would be helpful for confirmation. Chest CT 10/05/18 16:46 CONCLUSION: 1. Widespread parenchymal metastatic disease without prior chest CT. 2. Significant deterioration from the PET scan of 05/22/2017. 3. No pleural effusion. Head CT 10/08/18 21:30 CONCLUSION: 1. Stable appearance of the known meningioma along the right frontal lobe. 2. No acute hemorrhage or mass effect. . Physical Exam: GENERAL: NAD SKIN: Warm and dry. No rash HEAD: Atraumatic. Normocephalic. EYES: Pupils equal and round. No scleral icterus. No injection or drainage. ENT: No nasal bleeding or discharge. Mucous membranes pink and moist. NECK: Trachea midline. No JVD. CARDIOVASCULAR: Regular rate and rhythm. RESPIRATORY: No accessory muscle use. Clear to auscultation. Breath sounds equal bilaterally. GASTROINTESTINAL: Abdomen soft, non-tender, nondistended. Hepatic and splenic margins not palpable. MUSCULOSKELETAL: Extremities without clubbing, cyanosis, BLE tight edema. + mild erythema No obvious deformities. NEUROLOGICAL: Awake and alert. Non focal Normal speech. PSYCHIATRIC: Appropriate mood and affect; insight and judgment normal. Assessment and Plan - Plan E.coli sepsis Colitis , c.diff negative Metastatic uterine sarcoma, sp chemotherapy Neutropenia afebrile BP low, concerning cont zosyn repeat BC
--- NOTE | 2018-10-09 21:33 | MB ---
cc: Kenneth Rose MD DATE: 10/09/2018 ATTENDING PHYSICIAN: Ameena Hamilton MD REASON FOR CONSULTATION: Hematology consulted to render an opinion on a patient with pancytopenia. HISTORY OF PRESENT ILLNESS: The patient is a very pleasant 53-year-old female with a history of leiomyosarcoma of the uterus currently receiving treatment at [facility], who presented to the hospital with chest pain and not feeling well. She received cycle 2 of Yondelis at [facility] about a week ago. Over the weekend, she started not feeling well. She also had some chest pain. She came to the hospital and was found to have a STEMI. She also had a urinary tract infection and blood culture grew E. coli. She was noted to have acute renal failure and elevated liver enzymes. Over the last few days., she had developed pancytopenia. The patient bit her tongue last night and has a bruise of tongue. It had stopped bleeding. She has generalized weakness and fatigue. She has no chest pressure or palpitation at this time. She has no significant shortness of breath or cough. She had nausea without vomiting. She had diarrhea a few days ago, but that has resolved. She denies a headache. She denies any neck stiffness. She denies any focal numbness or weakness. PAST MEDICAL HISTORY: 1. 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 2. 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 3. PFO. 4. Right kidney mass. 5. Migraine. 6. Fatty liver. 7. Lazy eye. PAST SURGICAL HISTORY: Hysterectomy, IVC filter placement, port placement, cholecystectomy, bilateral tubal ligation, colonoscopy, appendectomy, ablation of her uterus. FAMILY HISTORY: One sister, . SOCIAL HISTORY: Quit tobacco 25 years ago. She lives with her . ALLERGIES: CARISOPRODOL AND DOXORUBICIN. CURRENT MEDICATIONS: 1. Eliquis. 2. Baby aspirin. 3. Enalapril. 4. Imdur. 5. Metoprolol. 6. Zosyn. REVIEW OF SYSTEMS: CONSTITUTIONAL: As above. EYES: Lazy eye. ENT: She bit her tongue and has a hematoma, as above. CARDIOVASCULAR: As above. RESPIRATORY: As above. GASTROINTESTINAL: As above. GENITOURINARY: As above. MUSCULOSKELETAL: Negative. HEMATOLOGIC: As above. ENDOCRINE: Negative. DERMATOLOGY: Negative. NEUROLOGIC: Negative. PSYCHIATRIC: Very anxious. PHYSICAL EXAMINATION: VITAL SIGNS: Temperature 97.3, blood pressure 99/53, O2 saturation 100%. GENERAL: She is alert, oriented x3, no acute distress. She is overweight. HEENT: Atraumatic, normocephalic. Alopecia. Pupils are equal, round, and reactive to light. She has strabismus. Oropharynx: Tongue with purplish hematoma, slightly swollen. No active bleeding noted. NECK: No thyromegaly. LYMPHATICS: No palpable cervical or axillary lymph nodes CARDIOVASCULAR: Regular S1, S2. LUNGS: Clear to auscultation anteriorly. ABDOMEN: Soft, slightly tender abdomen. No rebound or rigidity. EXTREMITIES: 1+ bilateral lower extremity edema. Bilateral lower extremities are a little tender. SKIN: No rash or petechiae. NEUROLOGIC: Nonfocal. LABORATORY DATA: I have reviewed her blood work done during this hospital stay. Today, her white blood cell count is 0.4, hemoglobin 8.6, platelet count of 8000. INR 1.1, PTT 31.5. Creatinine 1.1, total bilirubin 4.4, AST 185, ALT 313. ASSESSMENT: 1. Pancytopenia due to her recent chemotherapy. She received a second cycle of Yondelis at [facility] last week. It is possible she may have received Neulasta. Her blood count has trended very low today. She received a packed red blood cell transfusion last night. Today, her platelet count is down to 8000 and she just received a unit of platelet transfusion. Her white blood cell count trended down to 0.4. I think it is going to take a few more days for her blood count to recover. Since she recently had Escherichia coli bacteremia, I am going to give her Neupogen, hopefully to hasten the recovery of her neutropenia. Continue to monitor CBC and transfuse to keep hemoglobin around 8 and platelet count above 20,000. 2. History of right lower extremity venous thrombosis. She had thrombosis in the iliac vein extended to the inferior vena cava. She had inferior vena cava filter placement in 01/2018. She has been on Eliquis. She has chronic lower extremity edema and tenderness, which are about the same. Her platelet count had dropped down to 8000 and I am going to hold her Eliquis. We will monitor her closely for extension of clot. We will restart Eliquis once her platelet count starts trending up. 3. Tongue hematoma. She bit her tongue last night and has a hematoma. She said that is better today. It is not actively bleeding. We will hold the Eliquis as above. 4. Metastatic uterine sarcoma. She has metastases to bone and lung. She is seeing Dr. Saleem. The patient received Yondelis at [facility] last week. 5. Acute renal failure, which has improved. This is likely due to the Yondelis. 6. Elevated liver enzymes, which I think are also due to Yondelis. Liver enzymes have trended down. RECOMMENDATIONS: 1. Extensive discussion with the patient. I have also discussed with her on the speaker phone. 2. Hold Eliquis. 3. Recommend transfusion to keep hemoglobin above 8 and platelet count above 20,000. 4. Start her on Neupogen. 5. SCDs for DVT prophylaxis for now. 6. Discussed with Dr. Hamilton. Thank you, Dr. Hamilton, for asking me to see this patient. MD CAMI Maya/sharon , 07:21 PM , 07:37 PM ECTOR
[2018-10-10] MEDS: HYDROmorphone PF Inj 2 MG/ML Vial IV.PUSH PRN ×6 (00:58→22:54)
[2018-10-10] MEDS: Piperacil/Tazo 3.375 GM Premix 50 ML IV.SIG SCH ×5 (00:59→23:41)
[2018-10-10] MEDS: Sodium Chloride 0.45 % Inj 1,000 ML IV.CONT SCH ×3 (02:53→15:12)
[2018-10-10 05:57] LABS: Mean Corpuscular HGB Conc 33.4 % (32.0-36.0); Mean Corpuscular Hemoglobin 30.3 pg (27.0-34.0); Mean Corpuscular Volume 90.9 fL (80.0-100.0); Mean Platelet Volume 8.1 fL (7.0-11.0); Platelet Count 44 th/mm3 (150-450); Red Cell Distribution Width 27.2 % (11.6-17.2); White Blood Count 0.5 th/mm3 (4.0-11.0)
[2018-10-10] MEDS: Isosorbide Mononitrate 60 MG ER 24HR Tablet (Imdur) PO SCH (06:04)
[2018-10-10 06:18] LABS: Hematocrit 20.9 % (35.0-46.0)
[2018-10-10 06:48] LABS: Lymphocytes 32 % (9-44)
[2018-10-10 06:49] LABS: Dohle Bodies Present; Platelet Morphology Normal (Normal); Tear Drop Cells 1+
[2018-10-10] MEDS: Metoprolol Tartrate 25 MG Tablet PO SCH ×2 (08:15→20:02)
[2018-10-10] MEDS: Senna/Docusate Sodium 8.6/50 MG Tablet PO SCH ×2 (08:16→20:02)
[2018-10-10] MEDS ORDERED: Acetaminophen 325 MG Tablet PO PRN (08:52)
[2018-10-10] MEDS ORDERED: Sodium Chlor 0.9% Inj 250 ML IV.SIG SCH (09:00)
--- NOTE | 2018-10-10 09:22 | P.PNONC ---
Subjective Interval history: Afebrile Patient reports she is having some nausea Denies any acute pain Still has some soreness in her tongue Breathing okay Objective Vital Signs/Intake & Output: Vital Signs 10/09/18 12:00 10/09/18 15:20 10/09/18 16:00 Temperature 97.3 F L 97.3 F L Pulse Rate 106 H 103 H 101 H Respiratory Rate 18 18 18 Blood Pressure 106/66 99/53 L Pulse Oximetry 100 100 10/09/18 20:00 10/10/18 00:00 10/10/18 02:56 Temperature 97.3 F L 98.2 F Pulse Rate 97 H 97 H 101 H Respiratory Rate 18 18 18 Blood Pressure 122/69 141/71 H 132/71 Pulse Oximetry 100 100 100 10/10/18 04:00 10/10/18 08:00 Temperature 98 F Pulse Rate 93 H 104 H Respiratory Rate 18 Blood Pressure 125/68 Pulse Oximetry 99 Intake & Output 10/09/18 10/10/18 10/10/18 18:59 06:59 18:59 Intake Total 410 / 410 1979 / 1979 50 / 50 Output Total 950 / 950 Balance 410 / 410 1030 / 1030 50 / 50 Weight 231 lb 7.766 oz Intake: IV 50 / 50 1100 / 1100 50 / 50 1/2 Normal Saline Inj 1,000 ML 1000 / 1000 @ 50 mls/hr IV.CONT .Q20H [facility] Rx#:[id number] Zosyn 3.375 GM Premix 50 ML @ 50 / 50 100 / 100 50 / 50 100 mls/hr IV.SIG Q6H [facility] Rx#: [id number] Oral 360 / 360 880 / 880 Intake (Blood Product) Amt 0 / 0 Prepooled Plts Leukoreduced 5d 0 / 0 Unit [id number] Output: Urine 950 / 950 Other: Date of Last Bowel Movement 10/09/18 10/08/18 Result Diagrams: 10/10/18 04:20 10/09/18 04:00 Laboratory Results: Laboratory Results - last 24 hr 10/09/18 10/10/18 12:36 04:20 WBC 0.5 L RBC 2.30 L Hgb 7.0 L Hct 20.9 L* MCV 90.9 MCH 30.3 MCHC 33.4 RDW 27.2 H Plt Count 44 L D MPV 8.1 Prelim Diff (Auto) Slide review pending WBC Differential Manual diff final Seg Neuts % (Manual) 44 Band Neuts % (Manual) 24 H Lymphocytes % (Manual) 32 Abs Neuts (Manual) 0.3 L* Differential Comment . Dohle Bodies Present H Platelet Estimate Low L Platelet Morphology Normal Tear Drop Cells 1+ H Bld Prod Order Comment Culture Results: Microbiology 10/05/18 17:11 Aerobic Blood Culture - Preliminary Blood - Peripheral No growth in 4 days Anaerobic Blood Culture - Final Escherichia coli 10/05/18 17:00 Aerobic Blood Culture - Preliminary Blood - Peripheral No growth in 4 days Anaerobic Blood Culture - Preliminary No growth in 4 days 10/05/18 16:30 Urine Culture - Final Catheterized Urine No growth in 48 hours Medications: Active Medications Generic Name Dose Route Start Last Admin Trade Name Freq PRN Reason Stop Dose Admin Apixaban 5 mg 10/07/18 21:00 10/09/18 09:14 Eliquis PO 5 mg BID [facility] Administration Aspirin 81 mg 10/07/18 09:00 10/10/18 08:16 Ecotrin PO 81 mg DAILY [facility] Administration Enalapril Maleate 2.5 mg 10/08/18 09:00 10/10/18 08:16 Vasotec PO 2.5 mg DAILY [facility] Administration Filgrastim 480 mcg 10/09/18 20:00 10/09/18 21:44 Neupogen Inj SQ 480 mcg DAILY@1400 [facility] Administration Hydromorphone HCl 1 mg 10/05/18 20:21 10/10/18 06:04 Dilaudid Pf Inj IV.PUSH 1 mg Q3H PRN Administration pain 6-10 Sodium Chloride 1,000 mls @ 50 mls/hr 10/06/18 10:30 10/10/18 02:53 1/2 Normal Saline Inj IV.CONT 100 mls/hr .Q20H [facility] Administration Piperacillin/Tazobactam/Dextrose 50 mls @ 100 mls/hr 10/09/18 12:00 10/10/18 08:16 Zosyn 3.375 Gm Premix IV.SIG Infused Q6H [facility] Infusion Isosorbide Mononitrate 60 mg 10/07/18 07:00 10/10/18 06:04 Imdur PO 60 mg DAILY@0700 [facility] Administration Lactulose 30 ml 10/08/18 19:50 10/08/18 20:09 Lactulose Liq PO 30 ml DAILY PRN Administration SEVERE [employer]SITIPATION Metoprolol Tartrate 12.5 mg 10/06/18 21:00 10/10/18 08:15 Lopressor PO 12.5 mg BID [facility] Administration Prochlorperazine Edisylate 10 mg 10/05/18 20:22 10/10/18 09:09 Compazine Inj IV.PUSH 10 mg Q6H PRN Administration Nausea And Vomiting Senna/Docusate Sodium 1 tab 10/08/18 21:00 10/10/18 08:16 Alice-Colace PO 1 tab BID [facility] Administration Sennosides 17.2 mg 10/08/18 19:50 10/09/18 09:14 Senokot PO 17.2 mg Q12H PRN Administration Moderate Constipation Sodium Chloride 2 ml 10/05/18 21:00 10/10/18 08:16 Ns Inj IV.FLUSH 2 ml BID [facility] Administration Objective Remarks: GENERAL: Chronically ill-appearing older female resting in bed in no acute distress SKIN: Warm and dry. HEAD: Normocephalic. EYES: No scleral icterus. No injection or drainage. NECK: Supple, trachea midline. No JVD or lymphadenopathy. CARDIOVASCULAR: Regular rate and rhythm without murmurs. RESPIRATORY: Breath sounds equal bilaterally. No accessory muscle use. GASTROINTESTINAL: Abdomen soft, non-tender, nondistended. EXTREMITIES: No cyanosis. Bilateral lower extremity edema. MUSCULOSKELETAL: Adequate muscle tone. NEUROLOGICAL: No obvious focal deficit. Awake, alert, and oriented x3. Assessment/Plan (1) UTI (urinary tract infection) Code(s): N39.0 - Urinary tract infection, site not specified Status: Acute (2) Cancer, uterine Code(s): C55 - Malignant neoplasm of uterus, part unspecified Status: Acute - Plan 53-year-old female with history of metastatic uterine cancer who recently had chemotherapy at [facility] admitted with nausea and vomiting found to have pancytopenia. 1. Patient remains neutropenic. We will continue Neupogen. She has remained afebrile. Antibiotics will be continued per infectious disease. 2. Hemoglobin down to 7.0 today we will arrange for 1 unit packed red blood cell transfusion. 3. Continue to hold Eliquis until platelet count 50,000. 4. Supportive care - Attending Statement The exam, history, and the medical decision-making described in the above note were completed with the assistance of the mid-level provider. I reviewed and agree with the findings presented. I attest that I had a [id number] encounter with the patient on the same day, and personally performed and documented my assessment and findings in the medical record. Patient has mild nausea. The tongue soreness has improved. Denies any bleeding. She remains afebrile. Platelet count trended up with transfusion. Hemoglobin down to 7. She is still neutropenic. We will give her 1 unit of packed red blood cell transfusion today. Continue Neupogen. Discussed with patient and her daughter. (1) UTI (urinary tract infection) Qualifiers: Urinary tract infection type: acute cystitis Hematuria presence: with hematuria Qualified Code(s): N30.01 - Acute cystitis with hematuria (2) Cancer, uterine Qualifiers: Malignant neoplasm of uterus location: unspecified site of uterus Qualified Code(s): C55 - Malignant neoplasm of uterus, part unspecified
--- NOTE | 2018-10-10 10:18 | P.PN ---
Subjective Interval history: awake and alert, feels stronger tongue feels better with popsicles glad that Dr. pastor is on board afebrile Physical Exam Vital signs: Vital Signs 10/09/18 12:00 10/09/18 15:20 10/09/18 16:00 Temperature 97.3 F L 97.3 F L Pulse Rate 106 H 103 H 101 H Respiratory Rate 18 18 18 Blood Pressure 106/66 99/53 L Pulse Oximetry 100 100 10/09/18 20:00 10/10/18 00:00 10/10/18 02:56 Temperature 97.3 F L 98.2 F Pulse Rate 97 H 97 H 101 H Respiratory Rate 18 18 18 Blood Pressure 122/69 141/71 H 132/71 Pulse Oximetry 100 100 100 10/10/18 04:00 10/10/18 08:00 Temperature 98 F Pulse Rate 93 H 104 H Respiratory Rate 18 Blood Pressure 125/68 Pulse Oximetry 99 Intake & Output 10/09/18 10/10/18 10/10/18 18:59 06:59 18:59 Intake Total 410 / 410 1979 / 1979 65 / 65 Output Total 950 / 950 Balance 410 / 410 1030 / 1030 65 / 65 Weight 105 kg Intake: IV 50 / 50 1100 / 1100 65 / 65 1/2 Normal Saline Inj 1,000 ML 1000 / 1000 @ 50 mls/hr IV.CONT .Q20H [facility] Rx#:[id number] Zosyn 3.375 GM Premix 50 ML @ 50 / 50 100 / 100 50 / 50 100 mls/hr IV.SIG Q6H [facility] Rx#: [id number] Oral 360 / 360 880 / 880 Intake (Blood Product) Amt 0 / 0 Prepooled Plts Leukoreduced 5d 0 / 0 Unit [id number] Output: Urine 950 / 950 Other: Date of Last Bowel Movement 10/09/18 10/08/18 Narrative: awake and alert, oriented x 3, interactive, speech clear anicteric regular rhythm no rales, no wheezes, decreased breath sounds Abdomen soft, normal bowel sounds Right LE- + swelling Neuro no obvious neurological deficits.- moves all extremities spontaneously - Urinary Catheter Management Straight Cath placed during this visit: yes, but has since been removed by the nurse Reason for continuing: Acute urinary retention Insertion date: 10/07/18 Insertion time: 12:02 Removal date: 10/05/18 Removal time: 04:30 Indwelling Urethral Catheter Cath placed during this visit: no Reason for continuing: Acute urinary retention Results - Labs CBC & Chem 7: 10/11/18 02:30 10/11/18 02:30 Laboratory Results - last 24 hr 10/09/18 10/10/18 10/10/18 12:36 04:20 09:43 WBC 0.5 L RBC 2.30 L Hgb 7.0 L Hct 20.9 L* MCV 90.9 MCH 30.3 MCHC 33.4 RDW 27.2 H Plt Count 44 L D MPV 8.1 Prelim Diff (Auto) Slide review pending WBC Differential Manual diff final Seg Neuts % (Manual) 44 Band Neuts % (Manual) 24 H Lymphocytes % (Manual) 32 Abs Neuts (Manual) 0.3 L* Differential Comment . Dohle Bodies Present H Platelet Estimate Low L Platelet Morphology Normal Tear Drop Cells 1+ H MTS Gel Crossmatch See Detail Bld Prod Order Comment Microbiology 10/05/18 17:11 Blood - Peripheral Aerobic Blood Culture - Preliminary No growth in 4 days 10/05/18 17:11 Blood - Peripheral Anaerobic Blood Culture - Final Escherichia coli 10/05/18 17:00 Blood - Peripheral Aerobic Blood Culture - Preliminary No growth in 4 days 10/05/18 17:00 Blood - Peripheral Anaerobic Blood Culture - Preliminary No growth in 4 days Assessment and Plan - Plan This patient is a 53-year-old female with uterine cancer with metastasis to the bone and lungs, [facility] who presented to the emergency part with complaints of nausea since Friday afternoon. The patient recently had chemotherapy on Friday and Friday prior . Patient says she felt dehydrated and weak and then presented to the emergency department for evaluation. She also had left-sided chest pain that she described as pressure in nature without any radiation. Non-ST segment elevation GA, cardiomyopathy No active chest pain EKG shows normal sinus rhythm, no ST segment or T wave changes. Troponins were elevated at 1.1, now have showed a down trend. Patient says that she is allergic to aspirin which makes her feel severely nauseous and causes vomiting. The patient is thrombocytopenic, likely secondary to recent chemotherapy. No signs of active bleeding. Currently the heparin drip has been held due to elevated PTT level. We will continue heparin drip as per protocol and closely monitor for bleeding EF technically difficult- around 35%- suspect due to non ischemic etiology CArdiology ff - recommends conservative management with ASA. BB, oral nitrate and PK Eliquis 5 mg po bid =on hold due to pancytopenia Pancytopenia History of DVT s/p IVC filter - anemia-for 1 unit blood transufsion today - give 1 pack platelet- for thormboctyopenia- platelet 8 - [facility] kidney injury likely prerenal Acute urinary retention HYpokalemia - give x 1 po KCL recheck in am Patient had an elevated serum creatinine of 1.65 on admission, BUN elevated. trended to 1.35. Avoid nephrotoxic agents. Follow-up a.m. labs. west catheter placed - today 10/07- got 200 cc out yesterday straight cath last evening 600 cc, after no voiding/output for 6 hours continue west decreased IVF rate to 50- cc/hr with low EF Uterine cancer with metastasis to the bone and lungs Elevated LFTs-- multifactorial from mets, likely with chronic passive congestion from cardiomyopathy trending down Oncology ff CT imaging shows metastatic disease to the lungs and bone. Patient also has significantly elevated LFTs, no evidence of metastasis on abdominal imaging to the liver. LFTs slightly downtrending Follow-up a.m. labs. Continue IVF- decrease rate E coli sepsis setting of pancytopenia UTI - afebrile but neutropenic - continue on zosyn - ID ff - repeat Blood culture next few days to ensure clearance Vasovagal syncope episode 10/09 - neuro intact - monitor Nutriton- start ensure- chococlate flavior tid DVT prophylaxis,- chemical prophylaxis held due tp pancytopenia
[2018-10-11] MEDS: HYDROmorphone PF Inj 2 MG/ML Vial IV.PUSH PRN ×2 (01:45→04:33)
[2018-10-11] MEDS ORDERED: Sod Chloride 0.9% Inj 1,000 ML IV.SIG SCH (02:53)
[2018-10-11 04:12] LABS: Hematocrit 29.8 % (35.0-46.0); Hemoglobin 10.4 gm/dL (11.6-15.3); Mean Corpuscular HGB Conc 34.8 % (32.0-36.0); Mean Corpuscular Hemoglobin 29.6 pg (27.0-34.0); Mean Corpuscular Volume 85.2 fL (80.0-100.0); Mean Platelet Volume 9.1 fL (7.0-11.0); Platelet Count 23 th/mm3 (150-450); White Blood Count 0.4 th/mm3 (4.0-11.0)
[2018-10-11 04:30] LABS: Calcium 7.3 mg/dL (8.5-10.1); Carbon Dioxide 16.3 meq/L (21.0-32.0); Potassium 3.7 meq/L (3.5-5.1)
[2018-10-11 04:36] LABS: Albumin 1.7 g/dL (3.4-5.0); Calcium-Albumin Corrected 9.1 mg/dL (8.5-10.1)
[2018-10-11] MEDS: Piperacil/Tazo 3.375 GM Premix 50 ML IV.SIG SCH ×2 (06:11→15:19)
[2018-10-11] MEDS: Isosorbide Mononitrate 60 MG ER 24HR Tablet (Imdur) PO SCH ×2 (06:12→07:23)
[2018-10-11 07:05] LABS: Lymphocytes 30 % (9-44); Monocytes 5 % (0-8); Tallied Nucleated RBC 1 (0-0)
[2018-10-11 07:06] LABS: Howell-Jolly Bodies Present
[2018-10-11 07:07] LABS: Acanthocytes Occ; Burr Cells 1+; Dohle Bodies Present; Ovalocytes 1+
[2018-10-11] MEDS ORDERED: Acetaminophen 325 MG Tablet PO PRN (08:02)
--- NOTE | 2018-10-11 08:12 | P.PN ---
Subjective Interval history: patient coded, CPR done, patient intubated by Dr. Catherine massive GIB bleeding- NGT was place- coffee ground transferred to [facility] [facility] [place] Physical Exam Vital signs: Vital Signs 10/10/18 11:39 10/10/18 11:57 10/10/18 12:00 Temperature 97.8 F 98 F Pulse Rate 105 H 102 H 106 H Respiratory Rate 16 18 Blood Pressure 140/73 148/67 H Pulse Oximetry 100 100 10/10/18 15:22 10/10/18 16:00 10/10/18 19:57 Temperature 98.1 F Pulse Rate 106 H 95 H 103 H Respiratory Rate 20 20 Blood Pressure 131/69 111/55 L Pulse Oximetry 100 98 10/10/18 20:00 10/10/18 22:54 10/11/18 00:00 Temperature 97.2 F L Pulse Rate 100 H 110 H 101 H Respiratory Rate 20 Blood Pressure 127/64 Pulse Oximetry 96 10/11/18 01:50 10/11/18 02:00 10/11/18 02:29 Temperature 97.9 F Pulse Rate 107 H Respiratory Rate 20 Blood Pressure 96/60 L 79/36 L 81/34 L Pulse Oximetry 98 10/11/18 04:00 10/11/18 04:20 Temperature Pulse Rate 103 H Respiratory Rate Blood Pressure 163/72 H Pulse Oximetry Intake & Output 10/10/18 10/11/18 10/11/18 18:59 06:59 18:59 Intake Total 3145 / 3145 1600 / 1600 Output Total 175 / 175 Balance 3145 / 3145 1425 / 1425 Weight 108 kg Intake: IV 2165 / 2165 1600 / 1600 1/2 Normal Saline Inj 1,000 ML 2000 / 2000 500 / 500 @ 50 mls/hr IV.CONT .Q20H ANKUR Rx#:[id number] Zosyn 3.375 GM Premix 50 ML @ 150 / 150 100 / 100 100 mls/hr IV.SIG Q6H ANKUR Rx#: [id number] NS Inj 1,000 ML @ 1000 mls/hr 1000 / 1000 IV.SIG BOLUS ANKUR Rx#:[id number] NS Inj 250 ML @ 15 mls/hr IV. 15 / 15 SIG ONCE ANKUR Rx#:[id number] Oral 980 / 980 Intake (Blood Product) Amt 0 / 0 Rbc As-3 Leukoreduced Unit 0 / 0 [id number] Output: Urine Amount (Catheter) 175 / 175 Indwelling Urethral Catheter 175 / 175 Other: Date of Last Bowel Movement 10/08/18 10/08/18 # Bowel Movements 0 Narrative: intubated anicteric ET in place lungs- bialteral BS regular rhythm- HR 102 abdomen soft - Urinary Catheter Management Straight Cath placed during this visit: yes, but has since been removed by the nurse Reason for continuing: Acute urinary retention Insertion date: 10/07/18 Insertion time: 12:02 Removal date: 10/05/18 Removal time: 04:30 Indwelling Urethral Catheter Cath placed during this visit: yes Reason for continuing: Chronic Urinary Retention Insertion date: 10/07/18 Results - Labs CBC & Chem 7: 10/11/18 02:30 10/11/18 02:30 Laboratory Results - last 24 hr 10/10/18 10/11/18 10/11/18 09:43 02:30 02:30 WBC 0.4 L RBC 3.50 L Hgb 10.4 L D Hct 29.8 L MCV 85.2 D MCH 29.6 MCHC 34.8 RDW 26.0 H Plt Count 23 L D MPV 9.1 Prelim Diff (Auto) Manual diff required WBC Differential Manual diff final Seg Neuts % (Manual) 55 Band Neuts % (Manual) 10 H Lymphocytes % (Manual) 30 Monocytes % (Manual) 5 Abs Neuts (Manual) 0.3 L* Nucleated RBCs/100 WBC 5 H Differential Comment . Dohle Bodies Present H Platelet Estimate Low L Platelet Morphology Enlarged H Ovalocytes 1+ H Zambrano-[place] Bodies Present H Nicolas Cells 1+ H Acanthocytes (Spur) Occ H Sodium 135 L Potassium 3.7 Chloride 104 Carbon Dioxide 16.3 L Anion Gap 15 BUN 66 H Creatinine 1.60 H Estimated GFR 34 L POC Glucose Random Glucose 143 H Calcium 7.3 L* Calcium Adj for Albumin 9.1 Albumin 1.7 L MTS Gel Crossmatch See Detail 10/11/18 10/11/18 04:24 08:02 WBC RBC Hgb Hct MCV MCH MCHC RDW Plt Count MPV Prelim Diff (Auto) WBC Differential Seg Neuts % (Manual) Band Neuts % (Manual) Lymphocytes % (Manual) Monocytes % (Manual) Abs Neuts (Manual) Nucleated RBCs/100 WBC Differential Comment Dohle Bodies Platelet Estimate Platelet Morphology Ovalocytes Zambrano-[place] Bodies Nicolas Cells Acanthocytes (Spur) Sodium Potassium Chloride Carbon Dioxide Anion Gap BUN Creatinine Estimated GFR POC Glucose 154 H Random Glucose Calcium Calcium Adj for Albumin Albumin MTS Gel Crossmatch See Detail Microbiology 10/09/18 21:15 Blood - Peripheral Aerobic Blood Culture - Preliminary No growth in 1 day 10/09/18 21:15 Blood - Peripheral Anaerobic Blood Culture - Preliminary No growth in 1 day 10/09/18 21:05 Blood - Peripheral Aerobic Blood Culture - Preliminary No growth in 1 day 10/09/18 21:05 Blood - Peripheral Anaerobic Blood Culture - Preliminary No growth in 1 day 10/05/18 17:11 Blood - Peripheral Aerobic Blood Culture - Final No growth in 5 days 10/05/18 17:11 Blood - Peripheral Anaerobic Blood Culture - Final Escherichia coli 10/05/18 17:00 Blood - Peripheral Aerobic Blood Culture - Final No growth in 5 days 10/05/18 17:00 Blood - Peripheral Anaerobic Blood Culture - Final No growth in 5 days Assessment and Plan - Plan This patient is a 53-year-old female with 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 The patient recently had chemotherapy on Friday and Friday prior to . Patient says she felt dehydrated and weak and then presented to the emergency department for evaluation. She also had left-sided chest pain that she described as pressure in nature without any radiation. CPR arrest-secondary to hemorrhagic shock- code blue called- 10/11 - CPR done - about 10-15 minutes - stat intubation by Dr. Catherine - transfer to nurse receptionist service- [facility] [place] Acute GI bleeding 10/11 - stat GI consult- spoke with Dr. Rose - blood product transfusion - stat CBC now Pancytopenia- Platelet dropped again to 22 this am History of DVT s/p IVC filter - anemia-H and H this am good prior to GIB- S/P RBC transfusion- received 1 unit 10/10 - platelet transfusion per Hematology - Dr. Rose - ff - Neupogen Non-ST segment elevation VT, cardiomyopathy -EKG shows normal sinus rhythm, no ST segment or T wave changes. -Troponins were elevated at 1.1, now have showed a down trend. Patient says that she is allergic to aspirin which makes her feel severely nauseous and causes vomiting. The patient is thrombocytopenic, likely secondary to recent chemotherapy. No signs of active bleeding. Currently the heparin drip has been held due to elevated PTT level. We will continue heparin drip as per protocol and closely monitor for bleeding EF technically difficult- around 35%- suspect due to non ischemic etiology CArdiology ff - recommends conservative management with ASA. BB, oral nitrate and PK Eliquis 5 mg po bid =on hold due to pancytopenia Acute kidney injury likely prerenal Acute urinary retention - continue west palced 10/07 - Patient had an elevated serum creatinine of 1.65 on admission, BUN elevated. trended to 1.35. Avoid nephrotoxic agents. Follow-BMP decreased IVF rate to 50- cc/hr with low EF HYpokalemia- improved 3.7 this am - ff BMP Uterine cancer with metastasis to the bone and lungs Elevated LFTs-- multifactorial from mets, likely with chronic passive congestion from cardiomyopathy trending down Oncology ff CT imaging shows metastatic disease to the lungs and bone. Patient also has significantly elevated LFTs, no evidence of metastasis on abdominal imaging to the liver. LFTs slightly downtrending Follow-up a.m. labs. Continue IVF- decrease rate E coli sepsis setting of pancytopenia UTI - afebrile but neutropenic - continue on zosyn - ID ff - repeat Blood culture next few days to ensure clearance Nutrition- start ensure- chococlate flavior tid - hold on vent and with acute GIB 10/11- I updated- - Mr Pitts- [phone] of current condition and of transfer to [facility] [place] discussed with Dr. Bethea-nurse receptionist, GI - Dr Rose DVT prophylaxis,- chemical prophylaxis held due tp pancytopenia
--- NOTE | 2018-10-11 08:20 | P.PNONC ---
Subjective Interval history: [facility] was called at approximately 740 this morning Per RN, she had some hypotension and was given bolus overnight Upon arrival to the [facility] she had copious amounts of what appeared to be GI bleeding from nose with compressions Return of spontaneous circulation achieved and patient was transferred to ICU Objective Vital Signs/Intake & Output: Vital Signs 10/10/18 11:39 10/10/18 11:57 10/10/18 12:00 Temperature 97.8 F 98 F Pulse Rate 105 H 102 H 106 H Respiratory Rate 16 18 Blood Pressure 140/73 148/67 H Pulse Oximetry 100 100 10/10/18 15:22 10/10/18 16:00 10/10/18 19:57 Temperature 98.1 F Pulse Rate 106 H 95 H 103 H Respiratory Rate 20 20 Blood Pressure 131/69 111/55 L Pulse Oximetry 100 98 10/10/18 20:00 10/10/18 22:54 10/11/18 00:00 Temperature 97.2 F L Pulse Rate 100 H 110 H 101 H Respiratory Rate 20 Blood Pressure 127/64 Pulse Oximetry 96 10/11/18 01:50 10/11/18 02:00 10/11/18 02:29 Temperature 97.9 F Pulse Rate 107 H Respiratory Rate 20 Blood Pressure 96/60 L 79/36 L 81/34 L Pulse Oximetry 98 10/11/18 04:00 10/11/18 04:20 Temperature Pulse Rate 103 H Respiratory Rate Blood Pressure 163/72 H Pulse Oximetry Intake & Output 10/10/18 10/11/18 10/11/18 18:59 06:59 18:59 Intake Total 3145 / 3145 1600 / 1600 Output Total 175 / 175 Balance 3145 / 3145 1425 / 1425 Weight 238 lb 1.588 oz Intake: IV 2165 / 2165 1600 / 1600 15 15 1/2 Normal Saline Inj 1,000 ML 2000 / 2000 500 / 500 @ 50 mls/hr IV.CONT .Q20H ANKUR Rx#:[id number] Zosyn 3.375 GM Premix 50 ML @ 150 / 150 100 / 100 100 mls/hr IV.SIG Q6H ANKUR Rx#: [id number] NS Inj 1,000 ML @ 1000 mls/hr 1000 / 1000 IV.SIG BOLUS ANKUR Rx#:[id number] NS Inj 250 ML @ 15 mls/hr IV. 15 SIG ONCE ANKUR Rx#:[id number] Oral 980 / 980 Intake (Blood Product) Amt 0 / 0 Rbc As-3 Leukoreduced Unit 0 / 0 [id number] Output: Urine Amount (Catheter) 175 / 175 Indwelling Urethral Catheter 175 / 175 Other: Date of Last Bowel Movement 10/08/18 10/08/18 # Bowel Movements 0 Result Diagrams: 10/11/18 02:30 10/11/18 02:30 Laboratory Results: Laboratory Results - last 24 hr 10/10/18 10/11/18 10/11/18 09:43 02:30 02:30 WBC 0.4 L RBC 3.50 L Hgb 10.4 L D Hct 29.8 L MCV 85.2 D MCH 29.6 MCHC 34.8 RDW 26.0 H Plt Count 23 L D MPV 9.1 Prelim Diff (Auto) Manual diff required WBC Differential Manual diff final Seg Neuts % (Manual) 55 Band Neuts % (Manual) 10 H Lymphocytes % (Manual) 30 Monocytes % (Manual) 5 Abs Neuts (Manual) 0.3 L* Nucleated RBCs/100 WBC 5 H Differential Comment . Dohle Bodies Present H Platelet Estimate Low L Platelet Morphology Enlarged H Ovalocytes 1+ H Zambrano-[place]ar[place] Bodies Present H [place] Cells 1+ H Acanthocytes (Spur) Occ H Sodium 135 L Potassium 3.7 Chloride 104 Carbon Dioxide 16.3 L Anion Gap 15 BUN 66 H Creatinine 1.60 H Estimated GFR 34 L POC Glucose Random Glucose 143 H Calcium 7.3 L* Calcium Adj for Albumin 9.1 Albumin 1.7 L MTS Gel Crossmatch See Detail 10/11/18 10/11/18 04:24 08:02 WBC RBC Hgb Hct MCV MCH MCHC RDW Plt Count MPV Prelim Diff (Auto) WBC Differential Seg Neuts % (Manual) Band Neuts % (Manual) Lymphocytes % (Manual) Monocytes % (Manual) Abs Neuts (Manual) Nucleated RBCs/100 WBC Differential Comment Dohle Bodies Platelet Estimate Platelet Morphology Ovalocytes Zambrano-Clarion Bodies [place] Cells Acanthocytes (Spur) Sodium Potassium Chloride Carbon Dioxide Anion Gap BUN Creatinine Estimated GFR POC Glucose 154 H Random Glucose Calcium Calcium Adj for Albumin Albumin MTS Gel Crossmatch See Detail Culture Results: Microbiology 10/09/18 21:15 Aerobic Blood Culture - Preliminary Blood - Peripheral No growth in 1 day Anaerobic Blood Culture - Preliminary No growth in 1 day 10/09/18 21:05 Aerobic Blood Culture - Preliminary Blood - Peripheral No growth in 1 day Anaerobic Blood Culture - Preliminary No growth in 1 day 10/05/18 17:11 Aerobic Blood Culture - Final Blood - Peripheral No growth in 5 days Anaerobic Blood Culture - Final Escherichia coli 10/05/18 17:00 Aerobic Blood Culture - Final Blood - Peripheral No growth in 5 days Anaerobic Blood Culture - Final No growth in 5 days Medications: Active Medications Generic Name Dose Route Start Last Admin Trade Name Freq PRN Reason Stop Dose Admin Acetaminophen 650 mg 10/10/18 08:52 10/10/18 11:23 Tylenol PO 650 mg Q4H PRN Administration SEE LABEL COMMENTS Apixaban 5 mg 10/07/18 21:00 10/09/18 09:14 Eliquis PO 5 mg BID ANKUR Administration Aspirin 81 mg 10/07/18 09:00 10/10/18 08:16 Ecotrin PO 81 mg DAILY ANKUR Administration Diphenhydramine HCl 25 mg 10/10/18 08:52 10/10/18 11:23 Benadryl PO 25 mg Q4H PRN Administration SEE LABEL COMMENTS Enalapril Maleate 2.5 mg 10/08/18 09:00 10/10/18 08:16 Vasotec PO 2.5 mg DAILY ANKUR Administration Filgrastim 480 mcg 10/09/18 20:00 10/10/18 14:05 Neupogen Inj SQ 480 mcg DAILY@1400 ANKUR Administration Hydromorphone HCl 1 mg 10/05/18 20:21 10/11/18 04:33 Dilaudid Pf Inj IV.PUSH 1 mg Q3H PRN Administration pain 6-10 Sodium Chloride 1,000 mls @ 50 mls/hr 10/06/18 10:30 10/11/18 03:50 1/2 Normal Saline Inj IV.CONT 0 mls/hr .Q20H ANKUR Infusion Piperacillin/Tazobactam/Dextrose 50 mls @ 100 mls/hr 10/09/18 12:00 10/11/18 06:41 Zosyn 3.375 Gm Premix IV.SIG Infused Q6H ANKUR Infusion Isosorbide Mononitrate 60 mg 10/07/18 07:00 10/11/18 07:23 Imdur PO Not Given DAILY@0700 ANKUR Lactulose 30 ml 10/08/18 19:50 10/08/18 20:09 Lactulose Liq PO 30 ml DAILY PRN Administration SEVERE CONSITIPATION Metoprolol Tartrate 12.5 mg 10/06/18 21:00 10/10/18 20:02 Lopressor PO 12.5 mg BID ANKUR Administration Ondansetron HCl 4 mg 10/10/18 11:37 10/11/18 00:54 Zofran Inj IV.PUSH 4 mg Q6H PRN Administration NAUSEA Prochlorperazine Edisylate 10 mg 10/05/18 20:22 10/11/18 04:07 Compazine Inj IV.PUSH 10 mg Q6H PRN Administration Nausea And Vomiting Senna/Docusate Sodium 1 tab 10/08/18 21:00 10/10/18 20:02 Alice-Colace PO Not Given BID ANKUR Sennosides 17.2 mg 10/08/18 19:50 10/09/18 09:14 Senokot PO 17.2 mg Q12H PRN Administration Moderate Constipation Sodium Chloride 2 ml 10/05/18 21:00 10/10/18 20:02 Ns Inj IV.FLUSH 2 ml BID ANKUR Administration Objective Remarks: GENERAL: Unresponsive female patient seen in the middle of CODE BL[facility] SKIN: Warm and dry. HEAD: Normocephalic. NECK: Supple, trachea midline. No JVD or lymphadenopathy. RESPIRATORY: Active intubation CARDIOVASCULAR: Compressions with eventual ROSC GASTROINTESTINAL: Copious what appears to be GI output seen coming out of nares with compressions NEUROLOGICAL: Unresponsive Assessment/Plan (1) UTI (urinary tract infection) Code(s): N39.0 - Urinary tract infection, site not specified Status: Acute (2) Cancer, uterine Code(s): C55 - Malignant neoplasm of uterus, part unspecified Status: Chronic - Plan 53-year-old female with history of metastatic uterine cancer who recently had chemotherapy at [facility] admitted with nausea and vomiting found to have pancytopenia. 1. Return of spontaneous circulation after CODE [facility] was called this morning. Patient transferred to ICU. Critical care team to take over her care. 2 units unmatched packed red blood cells were ordered to be given stat for copious emesis that appeared to be from GI. Continue Neupogen as she remains neutropenic. Will continue to follow. (1) UTI (urinary tract infection) Qualifiers: Urinary tract infection type: acute cystitis Hematuria presence: with hematuria Qualified Code(s): N30.01 - Acute cystitis with hematuria (2) Cancer, uterine Qualifiers: Malignant neoplasm of uterus location: unspecified site of uterus Qualified Code(s): C55 - Malignant neoplasm of uterus, part unspecified
[2018-10-11] MEDS ORDERED: Sodium Chlor 0.9% Inj 250 ML IV.SIG SCH ×2 (09:00→10:00)
[2018-10-11] MEDS ORDERED: Calcium Chloride Inj 1 GM/10 ML Syringe ONE (09:10)
[2018-10-11 09:46] LABS: ABG Base Excess -13.3 mmol/L (-2-2); ABG PCO2 55 mmHg (38-42); ABG PO2 44 mmHG (61-120)
[2018-10-11 09:54] LABS: Hematocrit 26.8 % (35.0-46.0); Hemoglobin 8.8 gm/dL (11.6-15.3); Mean Corpuscular Volume 93.8 fL (80.0-100.0); Mean Platelet Volume 8.3 fL (7.0-11.0); Red Blood Count 2.85 mil/mm3 (4.00-5.30); Red Cell Distribution Width 21.8 % (11.6-17.2); White Blood Count 0.3 th/mm3 (4.0-11.0)
[2018-10-11 09:59] LABS: Platelet Count 12 th/mm3 (150-450)
[2018-10-11] MEDS: Metoprolol Tartrate 25 MG Tablet PO SCH (10:00)
[2018-10-11] MEDS: Senna/Docusate Sodium 8.6/50 MG Tablet PO SCH (10:00)
[2018-10-11 10:12] LABS: Activated Partial Thrombo Time 57.2 sec (23.4-31.7); INR 1.6 Ratio
[2018-10-11 10:25] LABS: Alanine Aminotransferase 318 U/L (10-53); Albumin 0.8 g/dL (3.4-5.0); Alkaline Phosphatase 66 U/L (45-117); Anion Gap 19 meq/L (5-15); Aspartate Aminotransferase 461 U/L (15-37); Blood Urea Nitrogen 62 mg/dL (7-18); Calcium 7.9 mg/dL (8.5-10.1); Carbon Dioxide 11.7 meq/L (21.0-32.0); Chloride 108 meq/L (98-107); Glomerular Filtration Rate 29 mL/min (>89); Glucose,Random 128 mg/dL (74-106); Magnesium 1.9 mg/dL (1.5-2.5); Phosphorus 8.1 mg/dL (2.5-4.9); Sodium 139 meq/L (136-145); Total Protein 2.2 g/dL (6.4-8.2)
[2018-10-11 10:28] LABS: Metamyelocytes 3 % (0-1)
--- NOTE | 2018-10-11 10:28 | P.PCN ---
Date of procedure: 10/11/18 Pre-op diagnosis: PEA cardiac arrest Post-op diagnosis: same Procedure: CPR This is second cardiac arrest patient has sustained. Please see Dr. Catherine's documentations regarding the first cardiac arrest and CPR. I was called to the bedside at 9:46 AM for PEA cardiac arrest. ACLS protocol was followed. Patient was already on 100 mcg/min of Levophed. Wide open saline bolus is going. Multiple doses of IV epinephrine pushed, calcium chloride sodium bicarb and 1 dose of atropine given. Return of spontaneous circulation at 9:52 AM. I spoke to the patient's daughter in person and patient's over the phone. They wanted full code. Patient then sustained another cardiac arrest at 10: 06 AM. ACLS protocol was followed already patient on Levophed at 100 mcg/min and epinephrine infusion at 20 mcg/min. Blood and blood product transfusion started. Return of spontaneous occlusion in 7 minutes. At this point Dr. Catherine arrived at the bedside and care was assigned to him. Patient received total of 4 doses of IV epinephrine, 2 g of calcium chloride, 3 Amps of bicarb, 1 amp of atropine. Patient continues to be profoundly hypoxemic with florid pulmonary edema and active GI bleed. At this point attempt to resuscitate seems to be futile if she sustains another cardiac arrest, patient appears terminal Anesthesia: none Surgeon: Ally Strong Condition: critical Disposition: ICU
[2018-10-11 10:33] LABS: Lymphocytes 69 % (9-44); Ovalocytes 1+; Platelet Estimate Rare (Normal); Tallied Nucleated RBC 5 (0-0)
[2018-10-11 10:35] LABS: Acanthocytes Occ; Burr Cells 2+
[2018-10-11 10:36] LABS: Dohle Bodies Present; Toxic Granulation 1+
--- NOTE | 2018-10-11 12:12 | P.DN ---
Pronouncement Note - Date and Time of Date of : 10/11/18 Time of : 10:45 - PCOD Preliminary cause of : Cardiac arrest Preliminary cause of : massive GI bleed - Contributing Factors (1) Non-ST elevation (NSTEMI) myocardial infarction (2) Colitis (3) UTI (urinary tract infection) (4) Cancer, uterine (5) Cardiomyopathy
--- NOTE | 2018-10-11 12:17 | P.PCN ---
Date of procedure: 10/11/18 Procedure: Endotracheal Intubation Diagnosis: Massive aspiration Indications: Patient is a 53-year-old female who was found unresponsive with massive coffee grounds emesis and aspiration. [facility] was called and arrived. Please see separate documentation for the code. Patient had ongoing active massive aspiration of gastric contents. Acute hypoxic hypercarbic respiratory failure and massive aspiration of the indication for intubation. Consent: Emergent Anesthesia: No anesthesia was required Description of the Procedure: The patient was positioned in the sniffing position. Hard Yankauer suction device was placed in the hypopharynx to attempt to suction as much gastric contents as possible out of the hypopharynx and allow improved visualization of the larynx. Due to the massive degree of aspiration that was ongoing, it was difficult to adequately clear the hypopharynx of gastric contents to permit visualization. A Rio #4 was used for laryngoscopy and a Grade room 1 view was obtained. A 8.0 cuffed endotracheal tube was inserted atraumatically through the vocal cords. Confirmation of correct endotracheal tube placement was made by equal and bilateral breath sounds and colorimetric CO2 detection. The endotracheal tube was secured at 24 cm at the teeth. CPR was ongoing and continued. I made every effort to minimize the length of time that CPR was interrupted during securing of the airway. I personally performed the procedure.
--- NOTE | 2018-10-11 12:18 | P.PCN ---
Date of procedure: 10/11/18 Procedure: CPR procedure note Presenting rhythm: PEA Event Details: PEA arrest secondary to massive aspiration. See separate code sheet for exact documentation. Procedure Description: Arrived at [facility]. Followed ACLS guidelines. See code sheet for details. I was personally present for the entire CPR event.
--- NOTE | 2018-10-11 12:19 | P.PCN ---
Date of procedure: 10/11/18 Procedure: Central Line Procedure Note Left femoral 8.5 Kitt[place] 10 cm introducer sheath Diagnosis: Massive GI bleeding Indications: Massive GI bleeding requiring massive resuscitation Consent: Emergent Anesthesia: none Description of the Procedure: The patient was placed in the supine, mild- Trendelenburg position. The area was prepped and draped sterilely. A 19g needle was inserted under negative pressure aspiration and dark venous blood was obtained. A guidewire was inserted easily without resistance. A small incision was made using a #11 blade. Using a modified Seldinger technique, the dilator and 8.5 Kitt[place], 10 cm catheter were advanced over the guidewire without resistance. All ports were aspirated and flushed, and had brisk blood return. The line was secured at the skin using 2-0 silk interrupted sutures. Suture was used instead of a non-suture StatLock device due to the size and configuration of the sheath. A Biopatch and Transparent sterile dressing were applied. There were no immediate complications noted. There was minimal EBL. The patient tolerated the procedure well. Ultrasound Guidance: Ultrasound guidance was used to identify the left femoral vein. The vascular anatomy of the left groin was normal. The vessel was cannulated under direct, real-time ultrasound visualization. After placement of the guidewire, confirmation of the guidewire in the lumen of the vessel was made using ultrasound visualization, before dilation of the tract. I personally performed the procedure.
--- NOTE | 2018-10-11 12:20 | P.PCN ---
Date of procedure: 10/11/18 Procedure: Procedure: Arterial Line Placement Left radial arterial line Diagnosis: Hemorrhagic shock Indications: Need for beat to beat hemodynamic monitoring Consent: Emergent Description of the Procedure: The left wrist was prepped and draped sterilely. 1% lidocaine was used for local anesthesia. Ultrasound guidance was used for this procedure. The vascular anatomy of the left wrist was normal. Under direct real-time ultrasound guidance, the radial artery was located and a needle was advanced into the artery. A 20 gauge, 12 cm catheter was advanced into the artery using a modified Seldinger technique. The catheter was sutured to the skin and a sterile dressing was applied. The catheter was connected to a pressure transducer and an arterial waveform was noted. There were no immediate complications noted. There was minimal EBL. I personally performed the procedure.
--- NOTE | 2018-10-11 12:29 | P.CONCC ---
History of Present Illness Service: Critical care medicine Consult date: 10/11/18 Requesting Physician: Ameena Hamilton Reason for Consult: massive aspiration Primary Care Provider: Chandrika Swartz MD History of Present Illness: This is a 53-year-old female with a history of metastatic cancer who presented as a CODE BLUE for massive aspiration. When I arrived the CODE BLUE, the patient had approximately 3-4 L of coffee grounds emesis mixed with bright red blood which had soaked the entire bed sheets and was pulling on the floor. In addition to this, the patient was in PEA arrest and still had active high volume emesis pouring out from both the mouth and the nose. ACLS was ongoing. I merely went to the head of the bed and attempt to suction gastric contents as fast as I could from the oropharynx. A second suction was set up to facilitate additional suction from the oropharynx. I intubated the patient, see separate procedure note for details. There is significant amount of gastric contents below the cords, and these were attempted to be suctioned aggressively. Interruptions and CPR were minimized during intubation. ROSC was obtained and the patient was emergently transferred to the intensive care unit. I began massive transfusion with balance resuscitation using packed red cells, FFP, platelets. Despite our massive resuscitation efforts as well as significant vasopressors, the patient had 2 more episodes of PEA arrest requiring CPR and ACLS. The family was contacted and notified of the condition. Given the rate at which we were transfusing volume into the patient, and how quickly she was bleeding out of her mouth and orogastric tube, I estimate that the rate of the bleed was likely to be between 2 and 4 L every 5-10 minutes. At this rate, no amount of massive resuscitation would keep up with the massive amounts of vigorous bleeding. Gastroneurologist came to bedside and evaluated the patient , but no emergent GI procedure could take place due to the brisk nature of the bleeding and the refractory hemorrhagic shock. I entertain the idea of interventional radiology embolization, however the patient was never stable enough to leave the intensive care unit for any procedures or imaging. We continued passive transfusion, but fourth time the patient lost a pulse and went into PEA arrest. I explained the family that we were unable to resuscitate the patient fast enough to overcome her massive and ongoing blood loss. The family expressed understanding. Patient was declared at 10:45 AM. Due to the emergent nature of the procedure and the mental status the patient, review of systems and further history is unobtainable from the patient. Remainder of the history is obtained from the medical record. Review of Systems unobtainable due to endotracheal tube, unobtainable due to mental status PMFSH - History History Provided By: Medical Record - Medical / Surgical Hx Neg / Unobtainable Medical Problems Denied: Unable to Obtain Surgical History: Unable to Obtain - Medical History Medical History: Medical History (Last Reviewed 10/11/18 @ 12:25 by Heri Catherine MD) Cancer of uterus H/O: hysterectomy History of DVT (deep vein thrombosis) Port-A-Cath in place Presence of IVC filter Primary cancer of uterus with metastasis to other site - Surgical History Surgical History: Surgical History (Last Reviewed 10/11/18 @ 12:25 by Heri Catherine MD) Hx of appendectomy - Family History Family History: Family History (Last Reviewed 10/11/18 @ 12:25 by Heri Catherine MD) Other Coronary artery disease Diabetes mellitus - Social History I have reviewed the patient's Social History: Yes - Tobacco History Second Hand Smoke Exposure: No Tobacco Use In Past 30 Days: No Smoking Status: Former smoker Tobacco Type: Cigarettes - Alcohol History How Often Do You Have a Drink Containing Alcohol: Never - Substance Use History Substance History: No History of Abuse - Travel History Recent Travel in the [place] Within the Last 8 Weeks: No Recent Travel Out of the Country Within the Last 8 Weeks: No - Immunization History Tetanus Immunization: >5 Years Medications and Allergies Active Medications: Active Medications Acetaminophen (Tylenol) 650 mg PO Q4H PRN PRN Reason: SEE LABEL COMMENTS Last Admin: 10/10/18 11:23 Dose: 650 mg Acetaminophen (Tylenol) 650 mg PO Q4H PRN PRN Reason: SEE LABEL COMMENTS Al Hydroxide/Mg Hydroxide (Milk Of [place] Liq) 30 ml PO Q12H PRN PRN Reason: Mild Constipation Apixaban (Eliquis) 5 mg PO BID [facility] Last Admin: 10/09/18 09:14 Dose: 5 mg Aspirin (Ecotrin) 81 mg PO DAILY [facility] Last Admin: 10/11/18 10:00 Dose: Not Given Bisacodyl (Dulcolax Supp) 10 mg RECTAL DAILY PRN PRN Reason: SEVERE CONSITIPATION Diphenhydramine HCl (Benadryl) 25 mg PO Q4H PRN PRN Reason: SEE LABEL COMMENTS Last Admin: 10/10/18 11:23 Dose: 25 mg Diphenhydramine HCl (Benadryl) 25 mg PO Q4H PRN PRN Reason: SEE LABEL COMMENTS Enalapril Maleate (Vasotec) 2.5 mg PO DAILY [facility] Last Admin: 10/11/18 10:00 Dose: Not Given Filgrastim (Neupogen Inj) 480 mcg SQ DAILY@1400 [facility] Last Admin: 10/10/18 14:05 Dose: 480 mcg Hydromorphone HCl (Dilaudid Pf Inj) 1 mg IV.PUSH Q3H PRN PRN Reason: pain 6-10 Last Admin: 10/11/18 04:33 Dose: 1 mg Sodium Chloride (1/2 Normal Saline Inj) 1,000 mls @ 50 mls/hr IV.CONT .Q20H [facility] Last Infusion: 10/11/18 03:50 Dose: 0 mls/hr Piperacillin/Tazobactam/Dextrose (Zosyn 3.375 Gm Premix) 50 mls @ 100 mls/hr IV.SIG Q6H [facility] Last Infusion: 10/11/18 06:41 Dose: Infused Sodium Chloride (Ns Inj) 250 mls @ 15 mls/hr IV.SIG ONCE [facility] Stop: 10/12/18 01:39 Sodium Chloride (Ns Inj) 250 mls @ 15 mls/hr IV.SIG ONCE [facility] Stop: 10/12/18 02:39 Isosorbide Mononitrate (Imdur) 60 mg PO DAILY@0700 [facility] Last Admin: 10/11/18 07:23 Dose: Not Given Lactulose (Lactulose Liq) 30 ml PO DAILY PRN PRN Reason: SEVERE CONSITIPATION Last Admin: 10/08/18 20:09 Dose: 30 ml Metoprolol Tartrate (Lopressor) 12.5 mg PO BID [facility] Last Admin: 10/11/18 10:00 Dose: Not Given Miscellaneous (Pill Splitter) 1 each OTHER UNSCH PRN PRN Reason: SEE LABEL COMMENTS Ondansetron HCl (Zofran Inj) 4 mg IV.PUSH Q6H PRN PRN Reason: NAUSEA Last Admin: 10/11/18 00:54 Dose: 4 mg Prochlorperazine Edisylate (Compazine Inj) 10 mg IV.PUSH Q6H PRN PRN Reason: Nausea And Vomiting Last Admin: 10/11/18 04:07 Dose: 10 mg Senna/Docusate Sodium (Alice-Colace) 1 tab PO BID [facility] Last Admin: 10/11/18 10:00 Dose: Not Given Sennosides (Senokot) 17.2 mg PO Q12H PRN PRN Reason: Moderate Constipation Last Admin: 10/09/18 09:14 Dose: 17.2 mg Sodium Chloride (Ns Inj) 2 ml IV.FLUSH BID [facility] Last Admin: 10/11/18 10:00 Dose: Not Given Sodium Chloride (Ns Inj) 2 ml IV.FLUSH UNSCH PRN PRN Reason: FLUSH AFTER USING IV ACCESS Allergies Allergy/AdvReac Type Severity Reaction Status Date / Time carisoprodol Allergy Severe HYPOTENSION Verified 10/05/18 15:24 doxorubicin Allergy Severe BP Verified 10/05/18 15:24 DROPPED;RED FACE;BACK SWELLING Home Medications Medication Instructions Recorded Confirmed Type apixaban [Eliquis] 5 mg PO BID 05/25/18 10/05/18 History docusate sodium [Colace] 100 mg PO BID 05/25/18 10/05/18 History furosemide [Lasix] 20 mg PO BID PRN 05/25/18 10/05/18 History metoclopramide HCl 10 mg PO TID 05/25/18 10/05/18 History ondansetron HCl [Zofran] 8 mg PO TID PRN 05/25/18 10/05/18 History oxycodone 10 mg PO Q4-6H PRN 05/25/18 10/05/18 History Physical Exam Vital signs: Vital Signs 10/10/18 15:22 10/10/18 16:00 10/10/18 19:57 Temperature 36.7 C Pulse Rate 106 H 95 H 103 H Respiratory Rate 20 20 Blood Pressure 131/69 111/55 L Pulse Oximetry 100 98 10/10/18 20:00 10/10/18 22:54 10/11/18 00:00 Temperature 36.2 C L Pulse Rate 100 H 110 H 101 H Respiratory Rate 20 Blood Pressure 127/64 Pulse Oximetry 96 10/11/18 01:50 10/11/18 02:00 10/11/18 02:29 Temperature 36.6 C Pulse Rate 107 H Respiratory Rate 20 Blood Pressure 96/60 L 79/36 L 81/34 L Pulse Oximetry 98 10/11/18 04:00 10/11/18 04:20 10/11/18 08:10 Temperature Pulse Rate 103 H Respiratory Rate 17 Blood Pressure 163/72 H Pulse Oximetry 10/11/18 08:12 Temperature Pulse Rate 96 H Respiratory Rate 16 Blood Pressure 96/51 L Pulse Oximetry 96 Intake & Output 10/10/18 10/11/18 10/11/18 18:59 06:59 18:59 Intake Total 3145 / 3145 1600 / 1600 Output Total 175 / 175 Balance 3145 / 3145 1425 / 1425 Weight 108 kg Intake: IV 2165 / 2165 1600 / 1600 1/2 Normal Saline Inj 1,000 ML 2000 / 2000 500 / 500 @ 50 mls/hr IV.CONT .Q20H [facility] Rx#:[id number] Zosyn 3.375 GM Premix 50 ML @ 150 / 150 100 / 100 100 mls/hr IV.SIG Q6H [facility] Rx#: [id number] NS Inj 1,000 ML @ 1000 mls/hr 1000 / 1000 IV.SIG BOLUS [facility] Rx#:[id number] NS Inj 250 ML @ 15 mls/hr IV. / 15 SIG ONCE [facility] Rx#:[id number] Oral 980 / 980 Intake (Blood Product) Amt 0 / 0 0 / 0 Rbc As-3 Leukoreduced Unit 0 / 0 [id number] Rbc As-3 Leukoreduced Unit 0 / 0 [id number] Output: Urine Amount (Catheter) 175 / 175 Indwelling Urethral Catheter 175 / 175 Other: Date of Last Bowel Movement 10/08/18 10/08/18 # Bowel Movements 0 Narrative: GENERAL: Middle-age female in extremis, cyanotic, mottled, active emesis coming out of the nose and mouth. HEENT: Normocephalic. Atraumatic. Pupils equal, round, reactive, conjugate. Mucous membranes are moist. Coffee-ground emesis coming out of the nose and mouth. NECK: Trachea is midline. There is no JVD. CHEST: Active bag valve mask ventilation. Bilateral coarse crackles. SPO2 65%. CARDIOVASCULAR: Tachycardic rate, regular rhythm. Originally PEA prior to ROSC. ABDOMEN: Soft, nontender, distended. No guarding. MUSCULOSKELETAL: Pulses 1+. No peripheral edema. NEUROLOGICAL: RASS -5. GCS 3. Pupils are very sluggishly reactive. - Urinary Catheter Management Straight Cath placed during this visit: yes, but has since been removed by the nurse Reason for continuing: Acute urinary retention Insertion date: 10/07/18 Insertion time: 12:02 Removal date: 10/05/18 Removal time: 04:30 Indwelling Urethral Catheter Cath placed during this visit: yes Reason for continuing: Chronic Urinary Retention Insertion date: 10/07/18 Assessment and Plan - Problem List (1) Non-ST elevation (NSTEMI) myocardial infarction Code(s): I21.4 - Non-ST elevation (NSTEMI) myocardial infarction Status: Acute (2) Colitis Code(s): K52.9 - Noninfective gastroenteritis and colitis, unspecified Status : Acute (3) UTI (urinary tract infection) Code(s): N39.0 - Urinary tract infection, site not specified Status: Acute (4) Cancer, uterine Code(s): C55 - Malignant neoplasm of uterus, part unspecified Status: Chronic (5) Cardiomyopathy Code(s): I42.9 - Cardiomyopathy, unspecified Status: Acute - Assessment and Plan Plan: Assessment: 53-year-old female with metastatic oncologic process and pancytopenia now complicated by massive GI bleeding with refractory hemorrhagic shock. Nonsurvivable acute decompensation. Very critically ill. Active problems: Pancytopenia Massive upper GI bleeding Refractory hemorrhagic shock Anemia secondary to acute blood loss PEA arrest Hypoxic ischemic encephalopathy Plan: Massive transfusion Epinephrine and norepinephrine for map greater than 65 Serial hemoglobins Emergent GI consulted: Unable to emergently scope due to patient in extremis IR procedure not an option given the critical nature of the patient. Large bore IV access This patient remains critically ill with one or more organ systems which are or may become a threat to life. I have spent in excess of 61 minutes discontinuously in the care and management of this patient. This reflects time I spent actually at the bedside managing her hemorrhagic shock and massive transfusion. This time is exclusive of procedures, and includes, but is not limited to, evaluation of the patient, review of the medical record, discussions with family, consultants, nursing staff, or respiratory therapy, and documentation in the medical record. (3) UTI (urinary tract infection) Qualifiers: Urinary tract infection type: acute cystitis Hematuria presence: with hematuria Qualified Code(s): N30.01 - Acute cystitis with hematuria (4) Cancer, uterine Qualifiers: Malignant neoplasm of uterus location: unspecified site of uterus Qualified Code(s): C55 - Malignant neoplasm of uterus, part unspecified (5) Cardiomyopathy Qualifiers: Cardiomyopathy type: unspecified Qualified Code(s): I42.9 - Cardiomyopathy, unspecified
--- NOTE | 2018-10-11 12:32 | P.DN ---
- Provider Primary care physician: Chandrika Swartz MD Consults: 10/05/18 20:26 Consult to Cardiology Routine Consulting Provider: Jamaal Bower Does the patient have a Assistant Professor Of Biochemistry who follows them?: No Preferred Dry Starch Supervisor:: Consumer Studies Professor Physician Reason for Consultation: NSTEMI Notified:: Service Spoke with:: domenica Date Notified:: 10/05/18 Time Notified:: 20:32 Ordering Provider: LALITO Consult to Oncology Routine Consulting Provider: Nahomy Singh Preferred Electrical Tryout Person:: Kenneth Rose Patient known to:: Kenneth Rose Reason for Consultation: metastatic uterine ca w N/V/D s/p chemo Friday Notified:: Service Spoke with:: tameka Date Notified:: 10/05/18 Time Notified:: 21:45 Comments:: call service aware patient known to dr thomas ken electrical tryout person for group Ordering Provider: LALITO 10/07/18 13:30 Consult to Infectious Diseases Routine Consulting Provider: Teri Elise Reason for Consultation: gram negative bacteremia Notified:: Service Spoke with:: HALI Date Notified:: 10/07/18 Time Notified:: 13:31 Ordering Provider: GUILLERMO 10/09/18 12:45 Consult to Hematology Routine Consulting Provider: Kenneth Rose Electrical Tryout Person:: Kenneth Rose Patient known to:: Kenneth Rose Reason for Consultation: uterine cancer pancytopenia Notified:: Office Spoke with:: Mell Notified:: 10/09/18 Time Notified:: 13:02 Comments:: no answer--[id number] Ordering Provider: GUILLERMO 10/11/18 08:18 Consult to Gastroenterology Stat Consulting Provider: Marisela Barraza For STAT consult, spoke directly to:: ROBEL Preferred Electrical Tryout Person:: Marisela Barraza Reason for Consultation: maassive GI bleeding in [facility] Notified:: Service Spoke with:: ANJELICA Date Notified:: 10/11/18 Time Notified:: 08:34 Ordering Provider: GUILLERMO Pronouncing clinician: Heri Catherine - Diagnosis at Time of (1) Hemorrhagic shock Diagnosis: Principal (2) GI bleed requiring more than 4 units of blood in 24 hours, ICU, or surgery Diagnosis: Principal (3) Thrombocytopenia due to massive blood transfusion Diagnosis: Principal (4) Anemia Diagnosis: Principal - Date and Time Date of admission: 10/05/18 19:54 Date of : 10/11/18 Time of : 10:45 - Summary Brief History: 53-year-old female with a past medical history significant for uterine cancer with metastasis to the bone and lungs and history of DVT on Eliquis presents to the emergency department for the evaluation of nausea/vomiting/diarrhea since Friday afternoon. The patient last had chemotherapy at [facility] on Friday and Friday. She reports that she has not felt well since that time. She denies any fevers or chills. Complains of abdominal pain. Endorses left-sided chest pain that she describes as a pressure. Nonradiating. Intermittent shortness of breath. No focal deficits. Result Diagrams: 10/11/18 09:15 10/11/18 09:15 Significant Findings: Abnormal Lab Results 10/10/18 10/11/18 10/11/18 09:43 02:30 02:30 WBC 0.4 L RBC 3.50 L Hgb 10.4 L D Hct 29.8 L MCV 85.2 D MCH 29.6 MCHC 34.8 RDW 26.0 H Plt Count 23 L D MPV 9.1 Prelim Diff (Auto) Manual diff required WBC Differential Manual diff final Seg Neuts % (Manual) 55 Band Neuts % (Manual) 10 H Lymphocytes % (Manual) 30 Monocytes % (Manual) 5 Metamyelocytes % (Man) Abs Neuts (Manual) 0.3 L* Nucleated RBCs/100 WBC 5 H Differential Comment . Toxic Granulation Dohle Bodies Present H Platelet Estimate Low L Platelet Morphology Enlarged H Ovalocytes 1+ H Zambrano-Nardin Bodies Present H Nicolas Cells 1+ H Acanthocytes (Spur) Occ H PT INR APTT Fibrinogen Puncture Site Patient Temperature O2 Saturation ABG pH ABG pCO2 ABG pO2 ABG HCO3 ABG O2 Content ABG Base Excess ABG Methemoglobin Hemoglobin Carboxyhemoglobin O2 Delivery Device Vent Setting Inspired O2 Critical Value Sodium 135 L Potassium 3.7 Chloride 104 Carbon Dioxide 16.3 L Anion Gap 15 BUN 66 H Creatinine 1.60 H Estimated GFR 34 L POC Glucose Random Glucose 143 H Lactic Acid Calcium 7.3 L* Calcium Adj for Albumin 9.1 Phosphorus Magnesium Total Bilirubin AST ALT Alkaline Phosphatase Total Protein Albumin 1.7 L Blood Type Antibody Screen MTS Gel Crossmatch See Detail Blood Bank Comment Bld Prod Order Comment 10/11/18 10/11/18 10/11/18 04:24 08:02 09:08 WBC RBC Hgb Hct MCV MCH MCHC RDW Plt Count MPV Prelim Diff (Auto) WBC Differential Seg Neuts % (Manual) Band Neuts % (Manual) Lymphocytes % (Manual) Monocytes % (Manual) Metamyelocytes % (Man) Abs Neuts (Manual) Nucleated RBCs/100 WBC Differential Comment Toxic Granulation Dohle Bodies Platelet Estimate Platelet Morphology Ovalocytes Zambrano-Nardin Bodies Nicolas Cells Acanthocytes (Spur) PT INR APTT Fibrinogen Puncture Site Patient Temperature O2 Saturation ABG pH ABG pCO2 ABG pO2 ABG HCO3 ABG O2 Content ABG Base Excess ABG Methemoglobin Hemoglobin Carboxyhemoglobin O2 Delivery Device Vent Setting Inspired O2 Critical Value Sodium Potassium Chloride Carbon Dioxide Anion Gap BUN Creatinine Estimated GFR POC Glucose 154 H Random Glucose Lactic Acid Calcium Calcium Adj for Albumin Phosphorus Magnesium Total Bilirubin AST ALT Alkaline Phosphatase Total Protein Albumin Blood Type Antibody Screen MTS Gel Crossmatch See Detail See Detail Blood Bank Comment Bld Prod Order Comment 10/11/18 10/11/18 10/11/18 09:15 09:15 09:15 WBC 0.3 L RBC 2.85 L Hgb 8.8 L Hct 26.8 L MCV 93.8 D MCH 31.0 MCHC 33.0 RDW 21.8 H D Plt Count 12 L* D MPV 8.3 Prelim Diff (Auto) Manual diff required WBC Differential Manual diff final Seg Neuts % (Manual) 20 Band Neuts % (Manual) 9 H Lymphocytes % (Manual) 69 H Monocytes % (Manual) Metamyelocytes % (Man) 3 H Abs Neuts (Manual) 0.1 L* Nucleated RBCs/100 WBC 14 H Differential Comment . Toxic Granulation 1+ H Dohle Bodies Present H Platelet Estimate Rare L Platelet Morphology Enlarged H Ovalocytes 1+ H Zambrano-Nardin Bodies Nicolas Cells 2+ H Acanthocytes (Spur) Occ H PT 16.0 H INR 1.6 APTT 57.2 H Fibrinogen 171 L Puncture Site Patient Temperature O2 Saturation ABG pH ABG pCO2 ABG pO2 ABG HCO3 ABG O2 Content ABG Base Excess ABG Methemoglobin Hemoglobin Carboxyhemoglobin O2 Delivery Device Vent Setting Inspired O2 Critical Value Sodium Potassium Chloride Carbon Dioxide Anion Gap BUN Creatinine Estimated GFR POC Glucose Random Glucose Lactic Acid Calcium Calcium Adj for Albumin Phosphorus Magnesium Total Bilirubin AST ALT Alkaline Phosphatase Total Protein Albumin Blood Type B Positive Antibody Screen Negative MTS Gel Crossmatch Blood Bank Comment Bld Prod Order Comment 10/11/18 10/11/18 10/11/18 09:15 09:15 09:40 WBC RBC Hgb Hct MCV MCH MCHC RDW Plt Count MPV Prelim Diff (Auto) WBC Differential Seg Neuts % (Manual) Band Neuts % (Manual) Lymphocytes % (Manual) Monocytes % (Manual) Metamyelocytes % (Man) Abs Neuts (Manual) Nucleated RBCs/100 WBC Differential Comment Toxic Granulation Dohle Bodies Platelet Estimate Platelet Morphology Ovalocytes Zambrano-Nardin Bodies Eldon Cells Acanthocytes (Spur) PT INR APTT Fibrinogen Puncture Site Art line Patient Temperature 98.6 O2 Saturation 65 L* ABG pH 7.07 L* ABG pCO2 55 H* ABG pO2 44 L* ABG HCO3 15 L* ABG O2 Content 6.6 L ABG Base Excess -13.3 L ABG Methemoglobin 1.8 Hemoglobin 7.2 L* Carboxyhemoglobin 0.5 O2 Delivery Device Ventilator Vent Setting Inspired O2 100 Critical Value Yes Sodium 139 Potassium 4.0 Chloride 108 H Carbon Dioxide 11.7 L Anion Gap 19 H BUN 62 H Creatinine 1.84 H Estimated GFR 29 L POC Glucose Random Glucose 128 H Lactic Acid 11.0 H* Calcium 7.9 L Calcium Adj for Albumin Phosphorus 8.1 H Magnesium 1.9 Total Bilirubin 3.0 H AST 461 H ALT 318 H Alkaline Phosphatase 66 Total Protein 2.2 L D Albumin 0.8 L D Blood Type Antibody Screen MTS Gel Crossmatch Blood Bank Comment Bld Prod Order Comment Hospital Course: This is a 53-year-old female with a history of metastatic cancer who presented as a CODE BLUE for massive aspiration. When I arrived the CODE BLUE, the patient had approximately 3-4 L of coffee grounds emesis mixed with bright red blood which had soaked the entire bed sheets and was pulling on the floor. In addition to this, the patient was in PEA arrest and still had active high volume emesis pouring out from both the mouth and the nose. ACLS was ongoing. I merely went to the head of the bed and attempt to suction gastric contents as fast as I could from the oropharynx. A second suction was set up to facilitate additional suction from the oropharynx. I intubated the patient, see separate procedure note for details. There is significant amount of gastric contents below the cords, and these were attempted to be suctioned aggressively. Interruptions and CPR were minimized during intubation. ROSC was obtained and the patient was emergently transferred to the intensive care unit. I began massive transfusion with balance resuscitation using packed red cells, FFP, platelets. Despite our massive resuscitation efforts as well as significant vasopressors, the patient had 2 more episodes of PEA arrest requiring CPR and ACLS. The family was contacted and notified of the condition. Given the rate at which we were transfusing volume into the patient, and how quickly she was bleeding out of her mouth and orogastric tube, I estimate that the rate of the bleed was likely to be between 2 and 4 L every 5-10 minutes. At this rate, no amount of massive resuscitation would keep up with the massive amounts of vigorous bleeding. Gastroneurologist came to bedside and evaluated the patient , but no emergent GI procedure could take place due to the brisk nature of the bleeding and the refractory hemorrhagic shock. I entertain the idea of interventional radiology embolization, however the patient was never stable enough to leave the intensive care unit for any procedures or imaging. We continued passive transfusion, but fourth time the patient lost a pulse and went into PEA arrest. I explained the family that we were unable to resuscitate the patient fast enough to overcome her massive and ongoing blood loss. The family expressed understanding. Patient was declared at 10:45 AM.
[2018-10-11] MEDS: Sodium Chloride 0.45 % Inj 1,000 ML IV.CONT SCH (15:19)
== END 2018-10-11 15:15 | disposition expired ==
LOC: NEPC 14:27 → NEDA 19:54 → NEDH 10-06 00:55 → HCIN 10-06 16:51 → HIMC 10-11 08:05
PROVIDERS: ADMIT Internal Medicine; ATTEND Internal Medicine